=== PATIENT | female | born 1950 | race Caucasian/White ===

== ENCOUNTER 2020-10-04 10:42 | Outpatient (REF) | payer MEDICARE, SELFPAY ==
--- NOTE | ~2020-10-04 | MM_ITS ---
EXAMINATION: BONE DENSITOMETRY CLINICAL INDICATION: Osteopenia. COMPARISON: Baseline BD dated 11/13/2012. TECHNIQUE: Using a [employer] DXA System (software version: 13.1) manufactured by [employer], dual-energy x-ray absorptiometry was performed of the lumbar spine and left hip. The images are of good technical quality. Summary results are attached. FINDINGS: AP SPINE L1-L4: Current: BMD 1.035 g/cm2, Z-score 0.6, T-score -1.2, osteopenia, 5.7% decrease from baseline (<5% change is not significant). Baseline: BMD 1.098 g/cm2. LEFT FEMUR, NECK: Current: BMD 0.718 g/cm2, Z-score -0.5, T-score -2.3, osteopenia. Baseline: BMD 0.806 g/cm2. LEFT FEMUR, TOTAL: Current: BMD 0.748 g/cm2, Z-score -0.5, T-score -2.1, osteopenia, 7.3% decrease from baseline (<5% change is not significant). Baseline: BMD 0.807 g/cm2. IDENTIFIED RISK FACTORS: Early menopause, history of fracture (adult), hysterectomy, bilateral oophorectomy, secondary osteoporosis, tobacco use (current smoker). HISTORY OF FRACTURE: Knee. MEDICATIONS: Vitamin D. MM/XR DEXA axial skeleton IMPRESSION: 1. DIAGNOSIS: Osteopenia based on the lowest T-score value of -2.3 in the femoral neck applying World Health Organization criteria. 2. 10-YEAR FRACTURE RISK PREDICTION, FRAX: Major osteoporotic fracture (clinical spine, forearm, hip or shoulder) 21.2%. Hip fracture 7.7%. 3. Treatment Recommendations: NOF guidelines recommend consideration for treatment in postmenopausal women and men age 50 and older presenting with the following: -A hip or vertebral (clinical or morphometric) fracture. -T-score less than or equal to -2.5 at the femoral neck or spine after appropriate evaluation to exclude secondary causes. -Low bone mass at the hip or spine and a 10-year fracture probability by FRAX of greater than or equal to 3% for hip fracture or greater than or equal to 20% for major osteoporotic fracture based on the [place] adapted WHO algorithm. 4. Other Recommendations: All treatment decisions require clinical judgment and consideration of individual patient factors, including patient preferences, comorbidities, previous drug use, risk factors not captured in the FRAX model (e.g. frailty, falls, vitamin D deficiency, increased bone turnover, interval significant decline in bone density) and possible under or overestimation of fracture risk by FRAX. Additional medical evaluation for secondary cause of low bone mineral density may be appropriate. FUTURE SCAN RECOMMENDATION: People with diagnosed cases of osteoporosis or at high risk for fracture should have regular bone mineral density tests. For patients eligible for Medicare, routine testing is allowed once every 2 years. The testing frequency can be increased to one year for patients who have rapidly progressing disease, those who are receiving or discontinuing medical therapy to restore bone mass, or have additional risk factors.
== END 2020-10-04 10:43 | disposition home or self-care (01) ==
LOC: HO.MAMMO 10:42
PROVIDERS: Visit Provider Nurse Practitioner Family
DX: Z13.820 Encounter for screening for osteoporosis (principal); Z78.0 Asymptomatic menopausal state; M85.80 Other specified disorders of bone density and structure, unspecified site; F17.200 Nicotine dependence, unspecified, uncomplicated; Z79.899 Other long term (current) drug therapy; Z87.81 Personal history of (healed) traumatic fracture; Z90.710 Acquired absence of both cervix and uterus; Z90.722 Acquired absence of ovaries, bilateral
CPT/HCPCS: 77080

== ENCOUNTER 2021-08-06 08:34 | Day surgery (SDC) | payer MEDICARE, SELFPAY ==
[2021-07-31 12:47] VITALS: BMI 20.9
--- NOTE | 2021-08-02 12:52 | MHC.SHP ---
Pre-Procedural Eval Section A Date of Service: 08/02/21 The patient is an INPATIENT: No Changes since office visit: No Cold of Flu in the past 2 weeks, No New Medical Problems, No Changes in Medication and No Patient answered all questions The History & Physical has been completed within 30 days and I have reviewed it.: Yes Section B Chief Complaint: cataract Allergies: Allergies Allergy/AdvReac Type Severity Reaction Status Date / Time Sulfa (Sulfonamide Allergy Severe ANAPHYLAXIS Verified 07/31/21 12:38 Antibiotics) [SULFA (SULFONAMIDE ANTIBIOTICS)] Plan Diagnosis/Plan: Unchanged I have reviewed the history and physical and performed a pertinent physical examination on my patient. No changes have occurred unless specified.
--- NOTE | 2021-08-03 14:26 | HO.ANESPROP2 ---
Documented by User: Arleen Hanson NP 08/03/21 14:27 HPI - Anesthesia Eval Consult details Narrative: 71yo F for Right Cataract Extraction IOL Insertion PCP cleared No previous cataract on record [facility] Past Medical History Medical History Anxiety Arthritis Back pain Cataract COPD (chronic obstructive pulmonary disease) GERD (gastroesophageal reflux disease) HTN (hypertension) Hypothyroidism Personal history of COVID-19 PONV (postoperative nausea and vomiting) Smoker Surgical History Surgical History (Updated 07/31/21 @ 12:46 by Radha Santacruz RN) History of esophagogastroduodenoscopy (EGD) History of lumpectomy of right breast Hx of cerebral aneurysm repair Hx of cholecystectomy Hx of colonoscopy Social History Social History Housing Other:: mobile home Are you a primary patient care technician instructor to a significant other at home: No Do you presently have visiting nurse or other home services: No Patient Tobacco Use Status: Current everyday Tobacco user Tobacco use type: Cigarette Cigarettes Per Day: 10 Years Smoked: 50 Smoked in Last 30 Days: Yes Use of substances other than those prescribed or required for medical reasons: No Have you been hit, kicked, punched, or otherwise hurt by someone within the past year? If so, by whom?: No Are you DNR?: No Advance Directives: No Advance Directives Information Provided: Yes Advance Directives on File: No Recently lost weight without trying: No Meds Allergies Allergy/AdvReac Type Severity Reaction Status Date / Time Sulfa (Sulfonamide Allergy Severe ANAPHYLAXIS Verified 07/31/21 12:38 Antibiotics) [SULFA (SULFONAMIDE ANTIBIOTICS)] Home Medications Medication Instructions Recorded Confirmed Last Taken Type aspirin 81 mg tablet,delayed 81 mg PO DAILY 07/31/21 07/31/21 Unknown History release cyanocobalamin (vitamin B-12) 1 tab PO DAILY 07/31/21 07/31/21 Unknown History 1,000 mcg tablet levothyroxine 50 mcg tablet 50 mcg PO DAILY 07/31/21 07/31/21 08/06/21 History lisinopril 20 mg tablet 1 tab PO DAILY 07/31/21 07/31/21 Unknown History lorazepam 0.5 mg tablet 1 tab PO DAILY PRN 07/31/21 07/31/21 Unknown History omeprazole 20 mg capsule,delayed 1 cap PO DAILY 07/31/21 07/31/21 08/06/21 History release Exam Exam Date and Time: August 03, 2021 1426 Height,Weight and Vital Signs: Height 5 ft 6 in Weight 58.967 kg Assessment and Plan Assessment Anesthesia Assessment: Chart Reviewed Documented by User: Irvin Gonzales MD 08/06/21 10:32 [facility] Past Medical History Medical History Anxiety Arthritis Back pain Cataract COPD (chronic obstructive pulmonary disease) GERD (gastroesophageal reflux disease) HTN (hypertension) Hypothyroidism Personal history of COVID-19 PONV (postoperative nausea and vomiting) Smoker Family History Family history of problems with anesthesia: No Surgical History Surgical History (Updated 07/31/21 @ 12:46 by Radha Santacruz RN) History of esophagogastroduodenoscopy (EGD) History of lumpectomy of right breast Hx of cerebral aneurysm repair Hx of cholecystectomy Hx of colonoscopy History of Problems with Anesthesia: No Social History Social History Housing Other:: mobile home Are you a primary patient care technician instructor to a significant other at home: No Do you presently have visiting nurse or other home services: No Patient Tobacco Use Status: Current everyday Tobacco user Tobacco use type: Cigarette Cigarettes Per Day: 10 Years Smoked: 50 Smoked in Last 30 Days: Yes Use of substances other than those prescribed or required for medical reasons: No Have you been hit, kicked, punched, or otherwise hurt by someone within the past year? If so, by whom?: No Are you DNR?: No Advance Directives: No Advance Directives Information Provided: Yes Advance Directives on File: No Recently lost weight without trying: No Meds Allergies Allergy/AdvReac Type Severity Reaction Status Date / Time Sulfa (Sulfonamide Allergy Severe ANAPHYLAXIS Verified 07/31/21 12:38 Antibiotics) [SULFA (SULFONAMIDE ANTIBIOTICS)] Home Medications Medication Instructions Recorded Confirmed Last Taken Type aspirin 81 mg tablet,delayed 81 mg PO DAILY 07/31/21 07/31/21 Unknown History release cyanocobalamin (vitamin B-12) 1 tab PO DAILY 07/31/21 07/31/21 Unknown History 1,000 mcg tablet levothyroxine 50 mcg tablet 50 mcg PO DAILY 07/31/21 07/31/21 08/06/21 History lisinopril 20 mg tablet 1 tab PO DAILY 07/31/21 07/31/21 Unknown History lorazepam 0.5 mg tablet 1 tab PO DAILY PRN 07/31/21 07/31/21 Unknown History omeprazole 20 mg capsule,delayed 1 cap PO DAILY 07/31/21 07/31/21 08/06/21 History release Exam Airway Mallampati Class: II TM Dist: >3cm Neck ROM: Full Heart: [id number] Lungs: cta b/l Assessment and Plan Assessment Anesthesia Assessment: Anesthesia Plan Discussed Final Anesthetic Review Family History of Problems with Anesthesia: No History of Problems with Anesthesia: No NPO: Yes ASA Class: II Final Preanesthetic Review: No Changes in Pt Med Stat, Meds/Allgs Chart Reviewed, Consent Obtained/Reviewed and Anes Risks/Benef Reviewed Patient Risk: Intermediate Procedure Risk: Low Assessment/Block/Sedation in SS: Assess/Block/Sedation-SS Anesthetic Plan Anesthetic Plan: MAC: and Agree w/ Assess. and Plan Disposition: Standard PACU
[2021-08-06 10:05] VITALS: BP 168/56; PULSE 84; RESP 16; TEMP 36.3; O2SAT 98
[2021-08-06] MEDS: Tetracaine HCl/PF 0.5% Oph Sol 4 ML DROPS 1 DROP EYE-RIGHT (10:10)
[2021-08-06] MEDS: Tropicamide 1 % Ophth Sol 3 ML BTL 1 DROP EYE-RIGHT ×3 (10:11→10:19)
[2021-08-06] MEDS: Phenylephrine HCL 2.5% Oph SoL 2 ML BOTTLE 1 DROP EYE-RIGHT ×3 (10:12→10:23)
[2021-08-06] MEDS: Lactated Ringers 500 ML 50 ML IV (10:23)
--- NOTE | 2021-08-06 11:10 | HO.PNOPHT ---
Ophthalmology Procedure Procedure Date of Service: 08/06/21 Ophthalmology Viscoelastic: Healon Duet Dual Pack Pro Ophthalmology Lenses: TECNIS [id number] (20.5) Procedure Notes: PREOPERATIVE DIAGNOSIS: Decreased visual acuity right eye secondary to cataract POSTOPERATIVE DIAGNOSIS: Same PROCEDURE: Right cataract extraction with intraocular lens insertion SURGEON: Cesar Evangelista M.D. ANESTHESIA: Topical/MAC ESTIMATED BLOOD LOSS: None COMPLICATIONS: None After obtaining informed consent, the patient was brought to the operating room suite and placed in the supine position. After adequate sedation per anesthesia, topical drops of Tetracaine were given to the right eye. The eye was then prepped and draped in the usual sterile fashion. The operating room microscope was then positioned over the operative eye and a lid speculum placed. A paracentesis was created. Viscoelastic was then instilled into the anterior chamber. A three plane incision was then created temporally, utilizing a 2.85 mm keratome. Capsulotomy forceps were then utilized to create a circular tear capsulotomy. Hydrodissection and hydrodelineation were carried out until adequate mobilization of the nucleus occurred. Phacoemulsification was then utilized to remove the dense central nucleus followed by removal of the cortical material utilizing the automated aspiration irrigation unit. Viscoelastic was instilled into the posterior capsular bag followed by placement of a posterior chamber intraocular lens without difficulty. The residual Viscoelastic was then removed utilizing the automated IA machine. The wound was checked and found to be watertight. The patient tolerated the procedure well and the lid speculum was removed. Intracameral injection of Vigamox 0.1 mL followed by a subtenon injection of Kenalog-40 0.2 mL were administered. The patient will be seen in the a.m.
[2021-08-06 11:32] VITALS: BP 149/64; PULSE 62; RESP 16; TEMP 36.2; O2SAT 97
== END 2021-08-06 12:14 | disposition home or self-care (01) ==
PROVIDERS: PCP Nurse Practitioner Family; Visit Provider Ophthalmology
PROC: (CPT 66985; principal; 2021-08-06 11:30)
DX: H25.11 Age-related nuclear cataract, right eye (principal); H54.7 Unspecified visual loss; E03.9 Hypothyroidism, unspecified; I71.9 Aortic aneurysm of unspecified site, without rupture; I10 Essential (primary) hypertension; Z98.890 Other specified postprocedural states; Z90.49 Acquired absence of other specified parts of digestive tract; Z79.82 Long term (current) use of aspirin; Z79.899 Other long term (current) drug therapy; Z88.2 Allergy status to sulfonamides; F17.210 Nicotine dependence, cigarettes, uncomplicated
CPT/HCPCS: 66984; J2250; J3300; V2632

== ENCOUNTER 2021-08-20 08:21 | Day surgery (SDC) | payer MEDICARE, SELFPAY ==
[2021-07-31 12:51] VITALS: BMI 20.9
--- NOTE | 2021-08-17 08:13 | MHC.SHP ---
Pre-Procedural Eval Section A Date of Service: 08/17/21 The patient is an INPATIENT: No Changes since office visit: No Cold of Flu in the past 2 weeks, No New Medical Problems, No Changes in Medication and No Patient answered all questions The History & Physical has been completed within 30 days and I have reviewed it.: Yes Section B Chief Complaint: cataract Allergies: Allergies Allergy/AdvReac Type Severity Reaction Status Date / Time Sulfa (Sulfonamide Allergy Severe ANAPHYLAXIS Verified 07/31/21 12:38 Antibiotics) [SULFA (SULFONAMIDE ANTIBIOTICS)] Plan Diagnosis/Plan: Unchanged I have reviewed the history and physical and performed a pertinent physical examination on my patient. No changes have occurred unless specified.
--- NOTE | 2021-08-17 09:19 | HO.ANESPROP2 ---
Documented by User: Arleen Hanson NP 08/17/21 09:20 HPI - Anesthesia Eval Consult details Narrative: 71yo F for Left Cataract Extraction IOL Insertion PCP cleared Right eye 08/06/21 with MAC: Midaz 2 PMFSH Past Medical History Medical History Anxiety Arthritis Back pain Cataract COPD (chronic obstructive pulmonary disease) GERD (gastroesophageal reflux disease) HTN (hypertension) Hypothyroidism Personal history of COVID-19 PONV (postoperative nausea and vomiting) Smoker Family History Family history of problems with anesthesia: No Surgical History Surgical History History of esophagogastroduodenoscopy (EGD) History of lumpectomy of right breast Hx of cerebral aneurysm repair Hx of cholecystectomy Hx of colonoscopy History of Problems with Anesthesia: No Social History Social History Housing Other:: mobile home Are you a primary hemodialysis patient care specialist to a significant other at home: No Do you presently have visiting nurse or other home services: No Patient Tobacco Use Status: Current everyday Tobacco user Tobacco use type: Cigarette Cigarettes Per Day: 10 Years Smoked: 50 Smoked in Last 30 Days: Yes Use of substances other than those prescribed or required for medical reasons: No Have you been hit, kicked, punched, or otherwise hurt by someone within the past year? If so, by whom?: No Are you DNR?: No Advance Directives: No Advance Directives Information Provided: Yes Advance Directives on File: No Meds Allergies Allergy/AdvReac Type Severity Reaction Status Date / Time Sulfa (Sulfonamide Allergy Severe ANAPHYLAXIS Verified 07/31/21 12:38 Antibiotics) [SULFA (SULFONAMIDE ANTIBIOTICS)] Home Medications Medication Instructions Recorded Confirmed Last Taken Type aspirin 81 mg tablet,delayed 81 mg PO DAILY 07/31/21 07/31/21 Unknown History release cyanocobalamin (vitamin B-12) 1 tab PO DAILY 07/31/21 07/31/21 Unknown History 1,000 mcg tablet levothyroxine 50 mcg tablet 50 mcg PO DAILY 07/31/21 07/31/21 08/06/21 History lisinopril 20 mg tablet 1 tab PO DAILY 07/31/21 07/31/21 Unknown History lorazepam 0.5 mg tablet 1 tab PO DAILY PRN 07/31/21 07/31/21 Unknown History omeprazole 20 mg capsule,delayed 1 cap PO DAILY 07/31/21 07/31/21 08/06/21 History release Exam Exam Date and Time: August 17, [id number] Height,Weight and Vital Signs: Height 5 ft 6 in Weight 58.967 kg Assessment and Plan Assessment Anesthesia Assessment: Chart Reviewed Final Anesthetic Review Family History of Problems with Anesthesia: No History of Problems with Anesthesia: No Documented by User: Anne Caceres MD 08/20/21 09:21 [facility] Past Medical History Medical History Anxiety Arthritis Back pain Cataract COPD (chronic obstructive pulmonary disease) GERD (gastroesophageal reflux disease) HTN (hypertension) Hypothyroidism Personal history of COVID-19 PONV (postoperative nausea and vomiting) Smoker Surgical History Surgical History History of esophagogastroduodenoscopy (EGD) History of lumpectomy of right breast Hx of cerebral aneurysm repair Hx of cholecystectomy Hx of colonoscopy Social History Social History Housing Other:: mobile home Are you a primary hemodialysis patient care specialist to a significant other at home: No Do you presently have visiting nurse or other home services: No Patient Tobacco Use Status: Current everyday Tobacco user Tobacco use type: Cigarette Cigarettes Per Day: 10 Years Smoked: 50 Smoked in Last 30 Days: Yes Use of substances other than those prescribed or required for medical reasons: No Have you been hit, kicked, punched, or otherwise hurt by someone within the past year? If so, by whom?: No Are you DNR?: No Advance Directives: No Advance Directives Information Provided: Yes Advance Directives on File: No Meds Allergies Allergy/AdvReac Type Severity Reaction Status Date / Time Sulfa (Sulfonamide Allergy Severe ANAPHYLAXIS Verified 07/31/21 12:38 Antibiotics) [SULFA (SULFONAMIDE ANTIBIOTICS)] Home Medications Medication Instructions Recorded Confirmed Last Taken Type aspirin 81 mg tablet,delayed 81 mg PO DAILY 07/31/21 07/31/21 Unknown History release cyanocobalamin (vitamin B-12) 1 tab PO DAILY 07/31/21 07/31/21 Unknown History 1,000 mcg tablet levothyroxine 50 mcg tablet 50 mcg PO DAILY 07/31/21 07/31/21 08/06/21 History lisinopril 20 mg tablet 1 tab PO DAILY 07/31/21 07/31/21 Unknown History lorazepam 0.5 mg tablet 1 tab PO DAILY PRN 07/31/21 07/31/21 Unknown History omeprazole 20 mg capsule,delayed 1 cap PO DAILY 07/31/21 07/31/21 08/06/21 History release Exam Airway Mallampati Class: II TM Dist: >3cm Neck ROM: Full Loose/Missing/Broken Teeth: No Heart: RRR Lungs: CTA Assessment and Plan Assessment Anesthesia Assessment: Anesthesia Plan Discussed Final Anesthetic Review NPO: Yes ASA Class: III Final Preanesthetic Review: Meds/Allgs Chart Reviewed, Consent Obtained/Reviewed and Anes Risks/Benef Reviewed Patient Risk: Intermediate Procedure Risk: Low Anesthetic Plan Anesthetic Plan: MAC: Disposition: Standard PACU
[2021-08-20 09:09] VITALS: BP 150/72; PULSE 66; RESP 18; TEMP 36.5; O2SAT 96
[2021-08-20] MEDS: Lactated Ringers 500 ML 50 ML IV (09:11)
[2021-08-20] MEDS: Tetracaine HCl/PF 0.5% Oph Sol 4 ML DROPS 1 DROP EYE-LEFT (09:11)
[2021-08-20] MEDS: Tropicamide 1 % Ophth Sol 3 ML BTL 1 DROP EYE-LEFT ×3 (09:13→09:24)
[2021-08-20] MEDS: Phenylephrine HCL 2.5% Oph SoL 2 ML BOTTLE 1 DROP EYE-LEFT ×3 (09:16→09:28)
--- NOTE | 2021-08-20 10:17 | HO.PNOPHT ---
Ophthalmology Procedure Procedure Date of Service: 08/20/21 Ophthalmology Viscoelastic: Healon Duet Dual Pack Pro Ophthalmology Lenses: TECNIS [id number] (20.5) Procedure Notes: PREOPERATIVE DIAGNOSIS: Decreased visual acuity left eye secondary to cataract POSTOPERATIVE DIAGNOSIS: Same PROCEDURE: Left cataract extraction with intraocular lens insertion SURGEON: Cesar Evangelista M.D. ANESTHESIA: Topical/MAC ESTIMATED BLOOD LOSS: None COMPLICATIONS: None After obtaining informed consent, the patient was brought to the operation room suite and placed in the supine position. After adequate sedation per anesthesia, topical drops of Tetracaine were given to the left eye. The eye was then prepped and draped in the usual sterile fashion. The operating room microscope was then positioned over the operative eye and a lid speculum placed. A paracentesis was created. Viscoelastic was then instilled into the anterior chamber. A three plane incision was then created temporally, utilizing a 2.85 mm keratome. Capsulotomy forceps were then utilized to create a circular tear capsulotomy. Hydrodissection and hydrodelineation were carried out until adequate mobilization of the nucleus occurred. Phacoemulsification was then utilized to remove the dense central nucleus followed by removal of the cortical material utilizing the automated aspiration irrigation unit. Viscoat elastic was instilled into the posterior capsular bag followed by placement of a posterior chamber intraocular lens without difficulty. The residual Viscoat elastic was then removed utilizing the automated IA machine. The wound was check and found to be watertight. The patient tolerated the procedure well and the lid speculum was removed. Intracameral injection of Vigamox 0.1 mL followed by a subtenon injection of Kenalog-40 0.2 mL were administered. The patient will be seen in the a.m.
[2021-08-20 10:39] VITALS: BP 132/65; PULSE 66; RESP 16; TEMP 36.6; O2SAT 94
== END 2021-08-20 10:57 | disposition home or self-care (01) ==
PROVIDERS: PCP Nurse Practitioner Family; Visit Provider Ophthalmology
PROC: (CPT 66985; principal; 2021-08-20 10:20)
DX: H25.12 Age-related nuclear cataract, left eye (principal); H54.7 Unspecified visual loss; E03.9 Hypothyroidism, unspecified; I71.9 Aortic aneurysm of unspecified site, without rupture; I10 Essential (primary) hypertension; J44.9 Chronic obstructive pulmonary disease, unspecified; Z79.899 Other long term (current) drug therapy; F17.210 Nicotine dependence, cigarettes, uncomplicated; Z86.16 Personal history of COVID-19
CPT/HCPCS: 66984; J2250; J3010; J3300; V2632

== ENCOUNTER 2022-06-24 14:46 | Outpatient (REF) | payer MEDICARE, SELFPAY ==
--- NOTE | ~2022-06-24 | MM_ITS ---
EXAMINATION: MM DIAGNOSTIC DIGITAL BREAST TOMOSYNTHESIS, BILATERAL CLINICAL INFORMATION: Remote right lumpectomy for breast cancer. Due for yearly. Follow-up probable benign complicated cysts left breast. COMPARISON: Outside mammography 06/19/2020, 06/18/2019 ([facility]), mammography 05/14/2013 and 11/13/2012 ([facility] [place]); outside ultrasound left breast 06/21/2021, 06/29/2020, 12/20/2019 ([facility]) TECHNIQUE: Digital breast tomosynthesis is performed in both the craniocaudal and mediolateral oblique views along with computer-aided detection (CAD). Synthesized 2D images are generated from the tomosynthesis. The prior outside studies were not available at time of imaging. FINDINGS: There are scattered areas of fibroglandular density (ACR BI-RADS breast composition Category b). There are post therapy changes on the right with reduced breast size, stable scarring, and benign dystrophic calcification within the scar. The left breast has inhomogeneous parenchymal pattern with some minor waxing and waning nodularity. There is no developing density or interval architectural abnormality or abnormal calcifications. The bilateral axilla are unremarkable. Preliminary results were discussed with patient at time of imaging. The final surveillance ultrasound of the left breast is pending, to be described in a separate report. MM/MM tomosynthesis diagnostic BI IMPRESSION: -No significant changes from prior studies. -Post therapy changes right breast. ASSESSMENT: BI-RADS 0: Incomplete - Need Additional Imaging Evaluation RECOMMENDATION: Left breast ultrasound (follow-up outside exam). This patient's information was entered into a reminder system with a target due date for their next mammogram.
== END 2022-06-24 14:47 | disposition home or self-care (01) ==
LOC: HO.MAMMO 14:46
PROVIDERS: PCP Nurse Practitioner Family; Visit Provider Nurse Practitioner Family
DX: R92.8 Other abnormal and inconclusive findings on diagnostic imaging of breast (principal); N60.02 Solitary cyst of left breast
CPT/HCPCS: 77062; 77066

== ENCOUNTER 2022-06-28 13:04 | Outpatient (REF) | payer MEDICARE, SELFPAY ==
--- NOTE | ~2022-06-28 | US_ITS ---
EXAMINATION: US DIAGNOSTIC BREAST, LEFT CLINICAL INFORMATION: One-year follow-up for cystic areas. COMPARISON: Mammography of 06/24/2022 and studies dating back to 05/14/2013. TECHNIQUE: Ultrasound of the breast is performed with real-time parker scale imaging and color Doppler. FINDINGS: At the 12 o'clock position approximately 2 cm from the nipple, there is a hypoechoic 3 x 3 x 3 mm circumscribed density with some increased through-sound transmission with appearance of a small benign cyst. This is stable compared to studies dating back to 06/18/2019. At the 3 o'clock position 3 cm from the nipple, there is again noted to be a heterogeneous and hypoechoic partially cystic lesion measuring approximately 9 x 4 x 11 mm in size. Lesion is wider than it is tall without internal vascularity. There is increased distal sound enhancement. Previously this measured approximately 10 x 5 x 8 mm in size. At the 3 o'clock location approximately 6 m from the nipple, there is a hypoechoic 10 x 4 x 12 mm lesion which is wider than it is tall without internal vascularity. Previously this measured approximately 9 x 4 x 10 mm in size. No edematous change within the parenchyma is identified. Results are discussed with the patient at time of visit. US/US breast LT limited IMPRESSION: Stable left breast densities as described. Return to yearly screening examinations. ASSESSMENT: BI-RADS 2: Benign RECOMMENDATION: Routine annual mammography screening due in 12 months. This patient's information was entered into a reminder system with a target due date for their next mammogram.
== END 2022-06-28 13:05 | disposition home or self-care (01) ==
LOC: HO.MAMMO 13:04
PROVIDERS: PCP Nurse Practitioner Family; Visit Provider Nurse Practitioner Family
DX: N60.02 Solitary cyst of left breast (principal)
CPT/HCPCS: 76642

== ENCOUNTER 2023-06-27 11:36 | Outpatient (REF) | payer MEDICARE, SELFPAY ==
--- NOTE | ~2023-06-27 | MM_ITS ---
EXAMINATION: MM SCREENING DIGITAL BREAST TOMOSYNTHESIS, BILATERAL CLINICAL INFORMATION: Screening. Asymptomatic. Right breast cancer in 2000. COMPARISON: Mammography: This study is compared with prior exams dating back to 2013. TECHNIQUE: Digital breast tomosynthesis is performed in both the craniocaudal and mediolateral oblique views along with computer-aided detection (CAD). Synthesized 2D images are generated from the tomosynthesis. FINDINGS: There are scattered areas of fibroglandular density (ACR BI-RADS breast composition Category b). There is an oval focal asymmetry in the upper outer quadrant of the left breast. Additional mammographic imaging with spot compression and sonography is advised. This finding is associated with faint calcifications. Separate mammographic magnification imaging is advised to evaluate the calcifications. There is a possibility these calcifications could be vascular. The diagnostic 90 degree view with 2-D and tomosynthesis will also be helpful in evaluating these calcifications. In the right breast, there are no significant masses, abnormal calcifications, or other abnormalities. There is a coarse benign calcification in the upper outer quadrant of the right breast and evidence of prior surgery in the right breast. There is also some mild skin thickening of the right breast which is chronic and related to prior breast cancer treatment. MM/MM tomosynthesis screening BI IMPRESSION: Focal asymmetry of the upper outer quadrant of the left breast in associated calcifications warrant additional mammographic and targeted sonographic imaging. Postsurgical and posttreatment changes of the right breast. ASSESSMENT: BI-RADS BI-RADS 0 - Incomplete: Needs additional Imaging. RECOMMENDATION: 1. Additional views of the left breast 2. Targeted ultrasound 3. Radiology department staff will contact the patient for additional imaging. Additional Imaging required This examination should not preclude the clinical evaluation of a suspicious palpable abnormality. This patient's information was entered into a reminder system with a target due date for their next mammogram.
== END 2023-06-27 11:37 | disposition home or self-care (01) ==
LOC: HO.MAMMO 11:36
PROVIDERS: PCP Nurse Practitioner Family; Visit Provider Nurse Practitioner Family
DX: Z12.31 Encounter for screening mammogram for malignant neoplasm of breast (principal)
CPT/HCPCS: 77063; 77067

== ENCOUNTER → 2023-06-27 12:15 | Outpatient (BNV) | payer MEDICARE, SELFPAY | PROVIDERS: PCP Nurse Practitioner Family; Visit Provider Radiology Diagnostic Radiology | DX: Z12.31 Encounter for screening mammogram for malignant neoplasm of breast (principal) | CPT/HCPCS: 77063; 77067 ==

== ENCOUNTER 2023-07-02 08:27 | Outpatient (REF) | payer MEDICARE, MEDICAID, SELFPAY ==
--- NOTE | ~2023-07-02 | MM_ITS ---
EXAMINATION: MM DIAGNOSTIC DIGITAL BREAST TOMOSYNTHESIS, LEFT US BREAST LIMITED, LEFT MAMMOGRAPHY: CLINICAL INFORMATION: Diagnostic imaging for follow-up of a 1 view focal asymmetry seen posterior left breast MLO view superiorly, with a few associated small calcifications. Findings seen on screening exam 05/27/2023. COMPARISON: Outside mammography 06/19/2020, 06/18/2019 ([facility]); Mammography to 06/27/2023, 06/24/2022, 05/14/2013 and 11/13/[place] [place]/2022 [place] [place] Outside ultrasound left breast 05/28/2022, 06/21/2021, 06/29/2020, 12/20/2019 ([facility]) TECHNIQUE: Digital breast tomosynthesis is performed in the following views: Full-field digital 3-D left mediolateral view, 3-D left spot compression CC and MLO views, and 2-D spot magnification left CC and ML views. FINDINGS: There are scattered areas of fibroglandular density (ACR BI-RADS breast composition Category b). Spot magnification views of the calcifications associated with the small oval mass in the upper outer left breast posterior one third demonstrate 2-3 punctate calcifications without pleomorphism. There are rounded in shape, and do not meet criteria for biopsy. In hindsight, these were likely present 06/24/2022 and appear similar. These are benign. Spot compression views demonstrate a persistent oval mass at the 3:00 axis of the left breast, with an abutting slightly more anterior oval oval mass 3:00 axis which both appear circumscribed and slightly smaller than on prior exams. We will evaluate these with ultrasound. ULTRASOUND: CLINICAL INFORMATION: As above. COMPARISON: As above. TECHNIQUE: Targeted sonographic evaluation was performed left breast using a high frequency linear transducer. Attention was focused on the 3:00 axis, 6 and 7 cm from the nipple. Selected archived documentation. FINDINGS: LEFT BREAST: -In the left breast 3:00 axis, 7 cm from the nipple, there is a slightly smaller complicated cyst measuring 0.9 x 0.7 x 0.4 cm (previously measured at 0.9 x 0.8 x 0.5 cm on 07/01/2022). This was previously surveilled for 3 years at [facility] the ultrasound and is slightly smaller and otherwise stable and benign. On 06/18/2019, this measured 0.9 x 0.5 x 0.8 cm. This represents the focal asymmetry seen on most recent mammography. -In the 3:00 axis, 6 cm from the nipple, there is a much smaller complicated cyst currently measuring 0.6 x 0.2 x 0.6 cm, (previously 0.6 x 0.5 x 0.4 cm on 06/18/2019). This is also benign entity, being slightly smaller than several years prior. MM/MM tomosynthesis added views L IMPRESSION: Benign findings, unchanged from prior exams, related to 2 complicated cysts in the left breast at the 3:00 axis, both smaller than on 06/18/2019. No suspicious calcifications identified in relation to these findings. No findings suspicious for malignancy in the left breast. Recommend patient resume routine annual screening to include both breasts. OVERALL ASSESSMENT: Mammography: BI-RADS 2 - Benign Findings Ultrasound: BI-RADS 2 - Benign Findings RECOMMENDATION: 1 year F/U Results were discussed with the patient at time of visit. This patient's information was entered into a reminder system with a target due date for their next mammogram.
--- NOTE | ~2023-07-02 | US_ITS ---
EXAMINATION: MM DIAGNOSTIC DIGITAL BREAST TOMOSYNTHESIS, LEFT US BREAST LIMITED, LEFT MAMMOGRAPHY: CLINICAL INFORMATION: Diagnostic imaging for follow-up of a 1 view focal asymmetry seen posterior left breast MLO view superiorly, with a few associated small calcifications. Findings seen on screening exam 05/27/2023. COMPARISON: Outside mammography 06/19/2020, 06/18/2019 ([facility]); Mammography to 06/27/2023, 06/24/2022, 05/14/2013 and 11/13/2012 ([facility] [place] Left breast ultrasound 07/01/2022 ([facility] [place]); Outside ultrasound left breast 05/28/2022, 06/21/2021, 06/29/2020, 12/20/2019 ([facility]) TECHNIQUE: Digital breast tomosynthesis is performed in the following views: Full-field digital 3-D left mediolateral view, 3-D left spot compression CC and MLO views, and 2-D spot magnification left CC and ML views. FINDINGS: There are scattered areas of fibroglandular density (ACR BI-RADS breast composition Category b). Spot magnification views of the calcifications associated with the small oval mass in the upper outer left breast posterior one third demonstrate 2-3 punctate calcifications without pleomorphism. There are rounded in shape, and do not meet criteria for biopsy. In hindsight, these were likely present 06/24/2022 and appear similar. These are benign. Spot compression views demonstrate a persistent oval mass at the 3:00 axis of the left breast, with an abutting slightly more anterior oval oval mass 3:00 axis which both appear circumscribed and slightly smaller than on prior exams. We will evaluate these with ultrasound. ULTRASOUND: CLINICAL INFORMATION: As above. COMPARISON: As above. TECHNIQUE: Targeted sonographic evaluation was performed left breast using a high frequency linear transducer. Attention was focused on the 3:00 axis, 6 and 7 cm from the nipple. Selected archived documentation. FINDINGS: LEFT BREAST: -In the left breast 3:00 axis, 7 cm from the nipple, there is a slightly smaller complicated cyst measuring 0.9 x 0.7 x 0.4 cm (previously measured at 0.9 x 0.8 x 0.5 cm on 07/01/2022). This was previously surveilled for 3 years at [facility] the ultrasound and is slightly smaller and otherwise stable and benign. On 06/18/2019, this measured 0.9 x 0.5 x 0.8 cm. This represents the focal asymmetry seen on most recent mammography. -In the 3:00 axis, 6 cm from the nipple, there is a much smaller complicated cyst currently measuring 0.6 x 0.2 x 0.6 cm, (previously 0.6 x 0.5 x 0.4 cm on 06/18/2019). This is also benign entity, being slightly smaller than several years prior. US/US breast LT limited mamm only IMPRESSION: Benign findings, unchanged from prior exams, related to 2 complicated cysts in the left breast at the 3:00 axis, both smaller than on 06/18/2019. No suspicious calcifications identified in relation to these findings. No findings suspicious for malignancy in the left breast. Recommend patient resume routine annual screening to include both breasts. OVERALL ASSESSMENT: Mammography: BI-RADS 2 - Benign Findings Ultrasound: BI-RADS 2 - Benign Findings RECOMMENDATION: 1 year F/U Results were discussed with the patient at time of visit. This patient's information was entered into a reminder system with a target due date for their next mammogram.
== END 2023-07-02 08:28 | disposition home or self-care (01) ==
LOC: HO.MAMMO 08:27
PROVIDERS: PCP Nurse Practitioner Family; Visit Provider Nurse Practitioner Family
DX: N64.89 Other specified disorders of breast (principal)
CPT/HCPCS: 76642; 77061; 77065

== ENCOUNTER → 2023-07-02 09:00 | Outpatient (BNV) | payer MEDICARE, SELFPAY | PROVIDERS: PCP Nurse Practitioner Family; Visit Provider Radiology Diagnostic Radiology | DX: R92.8 Other abnormal and inconclusive findings on diagnostic imaging of breast (principal) | CPT/HCPCS: 76642; 77065; G0279 ==

== ENCOUNTER 2023-08-21 09:30 | Outpatient (REF) | payer MEDICARE, MEDICAID, SELFPAY ==
--- NOTE | ~2023-08-21 | CT_ITS ---
EXAMINATION: CT ANGIOGRAM OF THE CHEST WITHOUT AND WITH CONTRAST CLINICAL INFORMATION: Thoracic aortic aneurysm COMPARISON: Noncontrast CT chest from 09/28/2014 TECHNIQUE: Multidetector volumetric CT imaging of the chest was performed before and after the administration of 70 mL of Omnipaque 350 intravenous contrast without immediate adverse reactions. 3D POSTPROCESSING: Multiple 3-D angiographic images were processed from the initial data set by the [facility] under concurrent physician supervision. DOSE LOWERING TECHNIQUES: This CT examination was performed using dose optimization techniques as appropriate, variously including the following: - Automated exposure control - Adjustment of mA and/or kV according to patient size (this includes techniques or standardized protocols for targeted exams where dose is matched to indication/reason for exam; i.e. extremities or head) - Use of iterative reconstruction technique DLP: 102 mGy-cm. FINDINGS: VASCULAR: ASCENDING AORTA: The mid segment measures 3.9 x 3.8 cm. Widely patent. No significant atherosclerotic plaque. AORTIC ARCH: Normal caliber and widely patent. Three-vessel arch anatomy. The great vessels are patent. Minimal atherosclerotic wall calcifications DESCENDING AORTA: The mid segment measures 3.4 x 3.4 cm. Minimal scattered atherosclerotic wall calcifications ABDOMINAL AORTA: Visualized proximal abdominal aorta is normal in caliber. NONVASCULAR: LUNGS: The lungs are clear with no evidence of inflammation or nodules. MEDIASTINUM: Heart is normal in size. Pericardium is normal. CORONARY ARTERY CALCIFICATION: Present PLEURA: There is no pleural effusion. No pleural mass or thickening. ABDOMINAL VISCERA: Unremarkable OSSEOUS STRUCTURES: Sternotomy wires and surgical screws are intact CT/CT angio chest aorta IMPRESSION: No evidence of thoracic aortic aneurysm. Minimal atherosclerotic disease.
[2023-08-21] MEDS: iohexoL 350 MG/ML 100 ML INFUS..BTL IV (11:54)
[2023-08-22 09:54] LABS: Creatinine POC 0.8 mg/dL (0.5-1.4); GFR POC > 60
== END 2023-08-21 09:31 | disposition home or self-care (01) ==
LOC: HO.CT 09:30
PROVIDERS: PCP Nurse Practitioner Family; Visit Provider Thoracic Surgery (Cardiothoracic Vascular Surgery)
DX: I71.33 Infrarenal abdominal aortic aneurysm, ruptured (principal)
CPT/HCPCS: 71275; 82565; Q9967

== ENCOUNTER 2023-09-23 10:11 | Outpatient (AMB) | payer MEDICARE, MEDICAID, SELFPAY ==
--- NOTE | 2023-09-23 10:14 | A.OFFVIS_ITS ---
Vital Signs 09/23/23 10:15 Height 5 ft 6 in Weight 116 lb BMI 18.7 BP 122/82 Blood Pressure Location Rt brachial Position Sitting Pulse 80 Pulse Source Doppler Pulse Oximetry (%) 99 Oxygen Delivery Method Room Air Intake Visit Reasons: COPD Allergies Sulfa (Sulfonamide Antibiotics) [SULFA (SULFONAMIDE ANTIBIOTICS)] Allergy (Severe, Verified 09/23/23 10:20) ANAPHYLAXIS HPI HPI COPD: Details: 73-year-old lady, active 25+ pack-year smoker referred for evaluation for underlying COPD. Patient states that she has been using albuterol MDI intermittently with good control of his symptoms she does not require to use long-acting bronchodilators. She denies any dyspnea on exertion. Patient does not have recent pulmonary function testing. Patient did have recent CT angio chest that did not demonstrate any worrisome pulmonary nodules. She denies any recent exacerbations. [facility] Medical History (Updated 09/23/23 @ 10:45 by Timi Santamaria MD) COPD (chronic obstructive pulmonary disease) Anxiety Personal history of COVID-19 Cataract Smoker Back pain Arthritis Hypothyroidism HTN (hypertension) GERD (gastroesophageal reflux disease) PONV (postoperative nausea and vomiting) Surgical History Hx of cerebral aneurysm repair History of lumpectomy of right breast History of esophagogastroduodenoscopy (EGD) Hx of colonoscopy Hx of cholecystectomy Social History (Updated 09/23/23 @ 10:22 by Jerri Mayo Brittany) Housing Other:: mobile home Are you a primary dialysis patient care technician to a significant other at home: No Do you presently have visiting nurse or other home services: No Patient Tobacco Use Status: Current everyday Tobacco user Tobacco use type: Cigarette Cigarettes Per Day: 10 Years Smoked: 50+, started at 10 years old Review of Systems Const Denies daytime sleepiness, Denies excessive sweating, Denies fatigue, Denies fever(s), Denies lethargy, Denies malaise, Denies night sweats, Denies snoring and Denies weight loss Eyes Denies blurry vision and Denies itchy eyes ENT Denies nasal congestion, Denies post nasal drip, Denies sinus pain, Denies sinus pressure and Denies other ( Thrush) Card Denies chest pain, Denies pedal edema, Denies dyspnea, Denies orthopnea and Denies paroxysmal nocturnal dyspnea Resp Denies cough, Denies hemoptysis, Denies excessive phlegm production, Denies dyspnea, Denies snoring and Denies wheezing GI Denies abdominal pain and Denies heartburn Musc Denies myalgias, Denies arthralgias and Denies joint swelling Skin/Breast Denies rash Neuro Denies memory loss and Denies seizure-like activity Psych Denies abnormal sleep pattern, Denies anxiety and Denies memory loss Endo Denies excessive sweating, Denies fatigue and Denies heat intolerance Jeanmarie/Lymph Denies easy bruising Aller/Immun Denies itchy eyes, Denies seasonal rhinorrhea and Denies wheezing Physical Exam Vital Signs: Last Vital Signs Pulse 80 09/23/23 10:15 BP 122/82 09/23/23 10:15 Pulse Ox 99 09/23/23 10:15 Oxygen Delivery Method Room Air 09/23/23 10:15 BMI result Body Mass Index 18.7 Const General: no acute distress and alert Nutritional Appearance: not obese Orientation/consciousness: Other orientation findings ( oriented) HEENT Head: Yes atraumatic Eyes General: appearance normal, both eyes and all related structures Sclerae: sclerae normal EOM: EOMs intact bilaterally Neck Neck: Yes supple Lymphatic: no lymphadenopathy noted Resp Effort & Inspection: normal respiratory effort and no use of accessory muscles Auscultation: clear to auscultation bilaterally Cardio Rate: regular rate Rhythm: regular rhythm Heart sounds: no gallops, no murmurs and no rubs Skin General skin exam: other ( warm) Extrem General: No clubbing, No cyanosis and No edema Assessment & Plan Assessment & Plan (1) Personal history of nicotine dependence: Code(s): Z87.891 - Personal history of nicotine dependence Category: Medical Plan: Results of CT angio chest from July of 2023 reviewed, no worrisome nodules at this time. Will continue with yearly screening, next in July of 2024. (2) COPD (chronic obstructive pulmonary disease): Code(s): J44.9 - Chronic obstructive pulmonary disease, unspecified Category: Medical Plan: Likely underlying COPD of unclear severity well controlled on as needed albuterol MDI. Continue albuterol MDI. Will obtain full PFT. Orders: Orders PFT pulmonary function test Today Coding Level of Care Code New Pt Level 4 (27342) Diagnoses Personal history of nicotine dependence Z87.891 COPD (chronic obstructive pulmonary disease) J44.9
[2023-09-23 10:15] VITALS: BP 122/82; PULSE 80; O2SAT 99; BMI 18.7
== END 2023-09-23 11:08 | disposition home or self-care (01) ==
PROVIDERS: PCP Nurse Practitioner Family; Referring Provider Nurse Practitioner Family; Visit Provider Internal Medicine Pulmonary Disease
DX: Z87.891 Personal history of nicotine dependence (principal); J44.9 Chronic obstructive pulmonary disease, unspecified
CPT/HCPCS: 99204

== ENCOUNTER → 2023-09-23 10:11 | Outpatient (BNVA) | payer MEDICARE, SELFPAY | PROVIDERS: PCP Nurse Practitioner Family; Referring Provider Nurse Practitioner Family; Visit Provider Internal Medicine Pulmonary Disease | DX: J44.9 Chronic obstructive pulmonary disease, unspecified (principal); Z87.891 Personal history of nicotine dependence | CPT/HCPCS: 99202 ==

== ENCOUNTER 2023-10-31 16:26 | Emergency (ER) | payer MEDICARE, MEDICAID, SELFPAY ==
--- NOTE | 2023-10-31 | ECG_ITS ---
Test Reason : CHEST PAINS Blood Pressure : / mmHG Vent. Rate : 060 BPM Atrial Rate : 060 BPM P-R Int : 158 ms QRS Dur : 078 ms QT Int : 432 ms P-R-T Axes : 069 -17 053 degrees QTc Int : 432 ms Normal sinus rhythm Cannot exclude old anterior infarct but can be from lead placement and body habitus Otherwise normal EKG When compared with ECG of 12-FEB-2019 20:18, Premature ventricular complexes are no longer Present Referred By: Generic ED Physician Electronically Signed By:KEARA WISDOM
--- NOTE | ~2023-10-31 | XR_ITS ---
EXAMINATION: XR THORACOLUMBAR SPINE CLINICAL INFORMATION: Pain between scapula. COMPARISON: CTA chest 08/21/2023. TECHNIQUE: 2 views of the thoracic spine. FINDINGS: No evidence of acute compression deformity or subluxation. Hcpg-al-ovbobeyi multilevel thoracic spondylosis. No significant paraspinal soft tissue abnormality. Midline sternal wires and plates are seen. XR/XR thoracic spine 2V IMPRESSION: 1. No acute compression deformity or subluxation. 2. Osuz-ui-elijkpew multilevel thoracic spondylosis.
--- NOTE | ~2023-10-31 | XR_ITS ---
EXAMINATION: XR RIBS, LEFT CLINICAL INFORMATION: Chart pain posterior ribs. COMPARISON: CTA chest 08/21/2023. TECHNIQUE: 3 views of the left ribs were obtained. FINDINGS: Normal heart size. Midline sternal wires and plates are noted. No focal consolidation, pleural effusion or pneumothorax. Subtle platelike opacities in the lingula suggesting subsegmental atelectasis and/or scarring. No evidence of displaced rib fractures. Surgical clips are noted projecting over the right axillary region. XR/XR ribs LT min 3V w CXR1V IMPRESSION: 1. No acute cardiopulmonary findings. 2. No evidence of displaced rib fractures.
[2023-10-31 16:38] VITALS: BP 154/65; PULSE 66; RESP 20; TEMP 37.1; O2SAT 94
[2023-10-31 16:39] VITALS: BP 159/68; PULSE 81; O2SAT 97
--- NOTE | 2023-10-31 17:23 | ED.GENADULT ---
HPI - General Adult General Chief complaint: General Medical Stated complaint: Back pain radiating to chest, fentanyl given Time Seen by Provider: 10/31/23 17:47 Source: patient and family (daughter) Mode of arrival: ambulatory Limitations: no limitations History of Present Illness ED Provider: PRADEEP MILES PA-C HPI narrative: 73-year-old female with past medical history significant for COPD presents to the emergency department today for evaluation of upper back pain that began acutely this morning. Patient reports attempting to tie her shirt behind her back when she felt a sudden twinge between her shoulder blades. Since this time endorses intermittent pain between her shoulder blades, more so on the left that is now radiating through to her chest. The pain is sharp in character and lasts for seconds. Admits the pain takes her breath away however she denies shortness of breath or difficulty breathing. She reports taking naproxen early this morning with minimal relief. Denies fever, chills, palpitations, shortness of breath, dyspnea, wheezing, nausea or vomiting, calf pain/tenderness. Denies trauma or injury to the back or chest. Denies recent travel or long car rides. Denies sedentary lifestyle. Related Data Home Medications ?Medication ?Instructions ?Recorded ?Confirmed aspirin 81 mg tablet,delayed 81 mg PO DAILY 07/31/21 07/31/21 release cyanocobalamin (vitamin B-12) 1 tab PO DAILY 07/31/21 07/31/21 1,000 mcg tablet levothyroxine 50 mcg tablet 50 mcg PO DAILY 07/31/21 07/31/21 lisinopril 20 mg tablet 1 tab PO DAILY 07/31/21 07/31/21 lorazepam 0.5 mg tablet 1 tab PO DAILY PRN anxiety 07/31/21 07/31/21 omeprazole 20 mg capsule,delayed 1 cap PO DAILY 07/31/21 07/31/21 release Previous Rx's ?Medication ?Instructions ?Recorded magnesium oxide 400 mg PO DAILY #7 caps 10/31/23 Allergies Allergy/AdvReac Type Severity Reaction Status Date / Time Sulfa (Sulfonamide Allergy Severe ANAPHYLAXIS Verified 10/31/23 16:41 Antibiotics) [SULFA (SULFONAMIDE ANTIBIOTICS)] Review of Systems Review of Systems: Constitutional: No fever, chills, fatigue, night sweats, weight changes ENT/Mouth: No ear pain, hearing loss, nasal congestion, sinus pain, rhinorrhea, sore throat Eyes: No eye pain, swelling, redness, vision changes, discharge Cardio: No chest pain, palpitations, BYERS, orthopnea, peripheral edema Pulm: No SOB, cough, sputum, wheezing, dyspnea, hemoptysis GI: No nausea, vomiting, hematemesis, abdominal pain, diarrhea, constipation, hematochezia, melena : No irregular bleeding, dysuria, frequency, urgency, hesitancy, hematuria, flank pain, urinary flow changes, urinary incontinence or retention MSK: No back pain, neck pain, joint pain, myalgias, +back pain Skin: No lesions, rashes Neuro: No weakness, numbness, paresthesias, LOC, dizziness, headache Psych: No anxiety/panic, depression, SI/HI, AH/VH All other systems reviewed and are negative. [facility] Past Medical History Attestation statement: The following information was validated with the patient. Source: old records reviewed and nursing notes reviewed Medical History COPD (chronic obstructive pulmonary disease) Anxiety Personal history of COVID-19 Cataract Smoker Back pain Arthritis Hypothyroidism HTN (hypertension) GERD (gastroesophageal reflux disease) PONV (postoperative nausea and vomiting) Surgical History Hx of cerebral aneurysm repair History of lumpectomy of right breast History of esophagogastroduodenoscopy (EGD) Hx of colonoscopy Hx of cholecystectomy Social History Social History Housing Other:: mobile home Are you a primary child care counselor to a significant other at home: No Do you presently have visiting nurse or other home services: No Patient Tobacco Use Status: Current everyday Tobacco user Tobacco use type: Cigarette Cigarettes Per Day: 10 Years Smoked: 50+, started at 10 years old Advance Directives: No Advance Directives Information Provided: Yes Do you have a plan to hurt others: No Plan Physical Exam ED Vital Signs: Vital Signs - 24 hr 10/31/23 21:04 Temperature 98.6 F Pulse Rate 54 Respiratory Rate 20 Blood Pressure 143/56 H Pulse Oximetry 95 Oxygen Delivery Method Room Air BMI result Body Mass Index 20.0 Patient is slightly hypertensive, vitals otherwise WNL. Not hypoxic. Const Other: Patient lying comfortably on the exam bed General: cooperative, healthy appearing, comfortable and no acute distress Orientation/consciousness: patient oriented x3 Limitations: no limitations HENIA Head: Yes normal to inspection, Yes No palpable skull fracture present, Yes normocephalic and Yes atraumatic Eyes General: appearance normal, both eyes and all related structures Conjunctivae: conjunctivae normal Sclerae: sclerae normal Pupils: Equal, round and reactive pupils present Chest Other: Vertical healed scar noted to substernal region of chest status post aortic aneurysm repair. Reproducible tenderness to posterior chest wall between the scapula, tender to palpation without palpable deformity. No palpable masses, fluctuance or crepitus. Resp Effort & Inspection: normal respiratory effort and able to speak in complete sentences Auscultation: clear to auscultation bilaterally, no crackles, no rhonchi and no wheezes Cardio Other: No JVD or peripheral edema Rate: regular rate Rhythm: regular rhythm GI Inspection: Yes normal to inspection Palpation (GI): Soft to palpation and nontender Back/Spine/Pelvis Other: No midline spinous tenderness or step-off deformity. Skin General skin exam: no rashes or lesions noted Neuro General: patient oriented x3 Cranial nerves: Yes Equal, round and reactive pupils present Course Course Course Narrative: 1815-- CBC without leukocytosis or left shift. Slightly anemic with H&H 11./33. She denies any bleeding. I did received critical lab result of magnesium of 1. Discussed this with patient. She does report history of low magnesium levels requiring supplementation at home however ran out of this supplement a few weeks ago and just started taking it again yesterday. Will replete with IV magnesium sulfate. I have suspicion that this may be contributing to spasming between shoulder blades. 1899-- XR ribs/ cxr unremarkable. XR thoracic spine unremarkable. Patient's symptoms likely secondary to hypomag as she reports symptom improvement on re-evaluation. I discussed all work up results with patient and her daughter. She is stable at the end of my shift. Sign out given to my colleague Chris BALES, pending repeat mag levels. Reevaluation(s) Reevaluation #1: Repeat magnesium 1.6, sent prescription for magnesium oxide to pharmacy, advised outpatient follow-up primary care provider for re-evaluation. Medications Administered Discontinued Medications Generic Name Dose Route Start Last Admin Trade Name Gayle PRN Reason Stop Dose Admin Baclofen 10 mg 10/31/23 17:31 10/31/23 18:18 Baclofen 10 Mg Tablet PO 10/31/23 17:32 10 mg ONCE ONE Administration Magnesium Sulfate 2 gm in 50 mls @ 25 mls/hr 10/31/23 18:16 10/31/23 20:35 Magnesium Sulfate/H2o IV 10/31/23 20:15 Infused ONCE ONE Infusion Lidocaine 1 patch 10/31/23 17:31 10/31/23 18:18 Lidocaine 4 % Patch Adh..Patch TRANSDERMA 10/31/23 17:32 1 patch ONCE ONE Administration Protocol Medical Decision Making Medical Decision Making MDM Narrative: 73-year-old female with past medical history significant for COPD presents to the emergency department today for evaluation of upper back pain that began acutely this morning. Patient is slightly hypertensive to 154/65, vitals otherwise WNL. She has not hypoxic. She is well-appearing, lying comfortably on the exam bed. No signs of respiratory distress. On exam, there is a vertical healed scar noted to substernal region of chest status post aortic aneurysm repair. Reproducible tenderness to posterior chest wall between the scapula, tender to palpation without palpable deformity. No palpable masses, fluctuance or crepitus. Symmetric rise and fall of chest. Differential diagnosis includes muscle spasm, muscle strain, ACS, arrhythmia. Lower suspicion for fracture, subluxation, herniation. Unlikely pulmonary embolism, AAA, aortic rupture, flail chest, rib fracture, cauda equina, Guillain-Hamilton, epidural abscess, cord compression. Plan for labs, ekg, trop, cxr/rib xr, and thoracic xr. Differential Diagnosis Differential Diagnoses: The differential diagnosis associated with the presentation includes As above Admission/Observation Consideration of admission/observation: Escalation of care including admission/observation considered Admission considered on presentation Lab Data [facility] Lab Attestation statement: I reviewed the patient's lab results. As above 10/31/23 17:43 10/31/23 17:43 Labs: Lab Results 10/31/23 10/31/23 Range/Units 17:43 19:23 WBC 9.3 (4.8-10.8) X10*3/uL RBC 3.76 L (4.20-5.50) X10*6/uL Hgb 11.1 L (12.0-16.0) g/dl Hct 33.0 L (37.0-47.0) % MCV 87.8 (80.0-98.0) fL MCH 29.5 (27.0-33.0) pg MCHC 33.6 (31.0-35.0) g/dl RDW 13.0 (11.0-16.0) % Plt Count 232 (160-400) X10*3/uL MPV 9.4 (9.4-12.3) fL Immature Gran % (Auto) 0.5 H (0.0-0.4) % Neut % (Auto) 70.0 (45-73) % Lymph % (Auto) 18.9 L (20-40) % [place] % (Auto) 8.1 (2-11) % Eos % (Auto) 2.0 (0-4) % Baso % (Auto) 0.5 (0-2) % Lymph # (Auto) 1.8 (1.2-4.9) X10*3/uL [place] # (Auto) 0.8 (0.1-1.2) X10*3/uL Eos # (Auto) 0.2 (0.0-0.4) X10*3/uL Baso # (Auto) 0.1 (0.0-0.2) X10*3/uL Abs Immat Gran (auto) 0.05 H (0.00-0.03) X10*3/uL Absolute Neuts (auto) 6.5 (2.0-8.3) x10*3/uL Absolute Nucleated RBC 0.000 (0.0-0.012) X10*3/uL Nucleated RBC % (auto) 0.0 (0.0-0.2) /100WBC PT 12.2 (11.1-13.3) SEC INR 1.0 (0.9-1.1) Sodium 140 (135-145) mmol/L Potassium 3.4 (3.3-5.1) mmol/L Chloride 105 (96-108) mmol/L Carbon Dioxide 26 (22-29) mmol/L Anion Gap 12 (12-20) BUN 6 L (9-16) mg/dL Creatinine 0.79 (0.5-1.4) mg/dL Estim Creat Clear Calc 56.1 Estimated GFR > 60 Random Glucose 100 (60-115) mg/dL Calcium 8.4 (8.4-10.2) mg/dL Magnesium 1.0 L* 1.6 (1.6-2.6) mg/dL Total Bilirubin 0.3 (0.0-1.0) mg/dL AST 15 (5-31) U/L ALT 8 (0-31) U/L Alkaline Phosphatase 69 (39-117) U/L Troponin I High Sens < 2.7 (<3.5-17.0) ng/L Total Protein 6.2 L (6.5-8.0) g/dL Albumin 3.8 (3.5-5.0) g/dL Lipase 34 (8-78) U/L Independent Interpretation I performed an independent interpretation of an: EKG and Plain X-Ray Interpretation: EKG showing normal sinus rhythm with a rate of 60 beats per minute, QT 432, no acute ischemic changes or ST elevations. X-ray left ribs with chest x-ray without rib fracture, agree with radiologist's interpretation. X-ray thoracic spine without fracture, agree with radiologist's interpretation. Radiology Impression Discussion of test interpretation with radiology: I have reviewed the radiologist's reading. Radiologist Impression: EXAMINATION: XR THORACOLUMBAR SPINE CLINICAL INFORMATION: Pain between scapula. COMPARISON: CTA chest 08/21/2023. TECHNIQUE: 2 views of the thoracic spine. FINDINGS: No evidence of acute compression deformity or subluxation. Yefw-df-vyyzdntu multilevel thoracic spondylosis. No significant paraspinal soft tissue abnormality. Midline sternal wires and plates are seen. XR/XR thoracic spine 2V IMPRESSION: 1. No acute compression deformity or subluxation. 2. Crtk-ww-ypektwra multilevel thoracic spondylosis. EXAMINATION: XR RIBS, LEFT CLINICAL INFORMATION: Chart pain posterior ribs. COMPARISON: CTA chest 08/21/2023. TECHNIQUE: 3 views of the left ribs were obtained. FINDINGS: Normal heart size. Midline sternal wires and plates are noted. No focal consolidation, pleural effusion or pneumothorax. Subtle platelike opacities in the lingula suggesting subsegmental atelectasis and/or scarring. No evidence of displaced rib fractures. Surgical clips are noted projecting over the right axillary region. XR/XR ribs LT min 3V w CXR1V IMPRESSION: 1. No acute cardiopulmonary findings. 2. No evidence of displaced rib fractures. Independent Historian Clinical information obtained from an independent historian. History obtained from or confirmed by: Other (daughter) External Record Review External record reviewed: Inpatient record, Office record, Outpatient record, Prior outpatient labs, Prior outpatient radiology, Primary care record and Outside ED record Prescription Management I considered prescription management with: Other (mag oxide) Chronic Conditions Patient?s care impacted by: Other (hypomag) Social Determinants Patient?s care significantly limited by Social Determinants of Health including: Other Social Determinant of Health Critical Care Time Critical Care Time Critical Care Time: No Discharge Plan Discharge Clinical Impression: Hypomagnesemia Patient Disposition: Home, Self-Care Additional Instructions: Your EKG is normal Your blood work showed low magnesium. This was repleted in the ED by IV. take magnesium oxide supplement as prescribed and follow-up with primary care provider for repeat magnesium level Your chest x-ray shows no abnormal findings. The x-ray of your thoracic spine shows no evidence of fracture Please follow-up with PCP in 1 week to have magnesium levels rechecked. Continue taking your magnesium supplements at home. Return with new or worsening symptoms. The case of an emergency call 911. Prescriptions: New magnesium oxide 400 mg magnesium capsule 400 mg PO DAILY Qty: 7 0RF No Action lisinopril 20 mg tablet 1 tab PO DAILY cyanocobalamin (vitamin B-12) 1,000 mcg tablet 1 tab PO DAILY aspirin [Aspir-81] 81 mg Tablet,Delayed Release (Dr/Ec) 81 mg PO DAILY lorazepam 0.5 mg tablet 1 tab PO DAILY PRN (Reason: anxiety) levothyroxine 50 mcg tablet 50 mcg PO DAILY omeprazole 20 mg capsule,delayed release(DR/EC) 1 cap PO DAILY Referrals: Physician,Unknown J [Primary Care Provider] - Interventions: ED Discharge Assessment Last Done: 10/31/23 21:04 Discharge Date/Time: 10/31/23 21:06 Print Language: Maltese
[2023-10-31 17:47] LABS: MANUAL DIFF FLAG NO
[2023-10-31 17:54] LABS: Basophils Absolute Auto 0.1 X10*3/uL (0.0-0.2); Basophils Percent Auto 0.5 % (0-2); Eosinophils Absolute Auto 0.2 X10*3/uL (0.0-0.4); Hemoglobin 11.1 g/dl (12.0-16.0); Imm Gran Abs Auto 0.05 X10*3/uL (0.00-0.03); Imm Gran Pct Auto 0.5 % (0.0-0.4); Lymphocytes Absolute Auto 1.8 X10*3/uL (1.2-4.9); Lymphocytes Percent Auto 18.9 % (20-40); Mean Corpuscular HGB Conc 33.6 g/dl (31.0-35.0); Mean Corpuscular Hemoglobin 29.5 pg (27.0-33.0); Mean Corpuscular Volume 87.8 fL (80.0-98.0); Mean Platelet Volume 9.4 fL (9.4-12.3); Monocytes Absolute Auto 0.8 X10*3/uL (0.1-1.2); Monocytes Percent Auto 8.1 % (2-11); Neutrophils Absolute Auto 6.5 x10*3/uL (2.0-8.3); Platelet Count 232 X10*3/uL (160-400); Red Blood Count 3.76 X10*6/uL (4.20-5.50); White Blood Count 9.3 X10*3/uL (4.8-10.8)
[2023-10-31 18:00] VITALS: BP 149/55; PULSE 59; TEMP 36.8; O2SAT 96
[2023-10-31 18:00] LABS: Prothrombin Time 12.2 SEC (11.1-13.3)
[2023-10-31] MEDS: Lidocaine 4 % Patch ADH..PATCH 1 PATCH TRANSDERMA (18:18)
[2023-10-31] MEDS: Baclofen 10 MG TABLET PO (18:18)
[2023-10-31 18:20] LABS: Alanine Aminotransferase 8 U/L (0-31); Albumin Level 3.8 g/dL (3.5-5.0); Alkaline Phosphatase 69 U/L (39-117); Anion Gap 12 (12-20); Aspartate Amino Transferase 15 U/L (5-31); Bilirubin Total 0.3 mg/dL (0.0-1.0); Blood Urea Nitrogen 6 mg/dL (9-16); Calcium 8.4 mg/dL (8.4-10.2); Carbon Dioxide 26 mmol/L (22-29); Chloride 105 mmol/L (96-108); Creatinine Clr Calc Pharmacy 56.1; Estimated Glomerular Filt Rate > 60; Glucose Random 100 mg/dL (60-115); Lipase 34 U/L (8-78); Potassium 3.4 mmol/L (3.3-5.1); Sodium 140 mmol/L (135-145); Total Protein 6.2 g/dL (6.5-8.0); Troponin-I High Sensitivity < 2.7 ng/L (<3.5-17.0)
[2023-10-31] MEDS: Magnesium Sulfate/H2O 2 GM/50 ML PIGGYBACK IV (18:28)
[2023-10-31 19:58] LABS: Magnesium 1.6 mg/dL (1.6-2.6)
[2023-10-31 20:00] VITALS: BP 143/56; PULSE 54; TEMP 37; O2SAT 95
[2023-10-31 21:04] VITALS: BP 143/56; PULSE 54; RESP 20; TEMP 37; O2SAT 95
== END 2023-10-31 21:06 | disposition home or self-care (01) ==
PROVIDERS: Nurse Practitioner Family; Physician Assistant Medical; Emergency Provider Internal Medicine
DX: E83.42 Hypomagnesemia (principal); R07.89 Other chest pain; M54.50 Low back pain, unspecified; R07.81 Pleurodynia; M54.6 Pain in thoracic spine; Z79.899 Other long term (current) drug therapy
CPT/HCPCS: 36415; 71101; 72070; 80053; 83690; 83735; 84484; 85025; 85610; 93005; 96365; 96366; 99284; J3475

== ENCOUNTER → 2023-10-31 16:42 | Outpatient (BNV) | payer MEDICARE, MEDICAID, SELFPAY | PROVIDERS: Emergency Provider Internal Medicine; Visit Provider Internal Medicine | DX: R07.9 Chest pain, unspecified (principal) | CPT/HCPCS: 93010 ==

== ENCOUNTER 2024-07-06 10:47 | Outpatient (REF) | payer MEDICARE, MEDICAID, SELFPAY | END 2024-07-06 10:48 | disposition home or self-care (01) | LOC: HO.MAMMO 10:47 | PROVIDERS: PCP Physician Assistant Surgical; Visit Provider Physician Assistant Surgical | DX: Z12.31 Encounter for screening mammogram for malignant neoplasm of breast (principal) | CPT/HCPCS: 77063; 77067 ==

== ENCOUNTER → 2024-07-06 11:15 | Outpatient (BNV) | payer MEDICARE, MEDICAID, SELFPAY | PROVIDERS: PCP Physician Assistant Surgical; Visit Provider Internal Medicine | DX: Z12.31 Encounter for screening mammogram for malignant neoplasm of breast (principal) | CPT/HCPCS: 77063; 77067 ==

== ENCOUNTER 2024-08-11 13:44 | Outpatient (REF) | payer MEDICARE, MEDICAID, SELFPAY ==
--- NOTE | 2024-08-11 13:47 | PFT_ITS ---
Flows: FEV1: 85 % of predicted at 1.90 L FVC: 92 % of predicted at 2.67 L FEV1/FVC: 71 % Bronchodilator response: Present in small to medium airways only Volumes: Total lung capacity: 90 % of predicted at 4.74 L Residual volume: 94 % of predicted at 2.07 L Slow vital capacity: 89 % of predicted at 2.67 L Expiratory reserve volume: 112 % of predicted at 0.84 L Diffusion capacity: Mildly decreased Impression: No obstructive or restrictive ventilatory defect. Bronchodilator response is present in small to medium airways only. Decreased diffusion capacity suggests emphysema. MTDD
[2024-08-11 14:30] VITALS: PULSE 72; O2SAT 98
--- OUTSIDE RECORDS SUMMARY | 2024-08-11 16:09 | XMS_ITS | Data Portability ---
Author Organization [facility], Endoscopy, [facility] Address [address] [place] [address] Assessment No assessment recorded. Plan of Treatment Reminders Order Date Submit Date Provider Last Modified By Organization Details Last Modified Time Details Appointments None record ed. Lab None record ed. Referral None record ed. Procedures None record ed. Surgeries None record ed. Imaging None record ed. Medication Orders None record ed. Patient TargetsNo targets recorded. Patient InstructionsNo instructions recorded. Reason for Referral None Reported. Procedures Surgical History Date Name Laterality Status Provider Name and Address Organization Details Recorded Time 4 Renée - Colonoscopy completed Justen Chinchilla MD [address] [place] [address], [id number], [facility] 05/21/2024 10:39:33 Imaging Results None recorded. Procedure Notes None recorded. Medical Equipment None Reported. Allergies Allergen ID Allergen Name Allergen Category Reaction Reaction Severity Criticality Documentation Date Start Date Code Code System Note Provider Name and Address Organization Details Recorded Time [id number] Substance with sulfonami de structure and antibacte rial mechanism of action (substanc e) medicatio n dyspnea Not available Not available 05/13/2024 [id number] SNOMED Coco Corral RN [facility], [facility] 4 15:16:29 Medications Name Sig Start Date Stop Date Status Note LastModified by Organization Details LastModified Time loperamide 2 mg capsule active Not Available Not Available N ot Available trazodone 50 mg tablet TAKE 0.5 TABLETS BY MOUTH NIGHTLY AT BEDTIME. MAY INCREASE DOSE TO 1 FULL TAB NIGHTLY IF INEFFECTIVE active Not Available Not Available Not Available lisinopril 20 mg tablet TAKE 1 TABLET BY MOUTH EVERY DAY active Not Available Not Available No t Available acetaminophe n 500 mg tablet TAKE 1 TABLET BY MOUTH EVERY 4 TO 6 HOURS NEEDED active Not Available Not Available No t Available famotidine 20 mg tablet TAKE 1 TABLET (20 MG TOTAL) BY MOUTH IN THE MORNING AND IN THE EVENING active Not Available Not Available No t Available magnesium oxide 400 mg (241.3 mg magnesium) tablet TAKE 1 TABLET (400 MG TOTAL) BY MOUTH 2 TIMES A DAY active Not Available Not Available Not Available lorazepam 0.5 mg tablet TAKE 1 TABLET BY MOUTH EVERY DAY NEEDED FOR ANXIETY active Not Available Not Available No t Available levothyroxin e 50 mcg tablet TAKE 1 TABLET BY MOUTH DIRECTED. TAKE 50 MCG DAILY EXCEPT TAKE 75 MCG 2 DAYS A WEEK active Not Available Not Available Not Available omeprazole 20 mg capsule,kathleen yed release TAKE 1 CAPSULE BY MOUTH EVERY DAY active Not Available Not Available No t Available bisacodyl 5 mg tablet,delay ed release TAKE 4 TABLETS THE DAY BEFORE PROCEDURE active Not Available Not Available No t Available lisinopril 5 mg tablet TAKE 1 TABLET (5 MG TOTAL) BY MOUTH DAILY. active Not Available Not Available No t Available ibuprofen 600 mg tablet TAKE 1 TABLET 4 TIMES A DAY WITH MEALS NEEDED active Not Available Not Available No t Available albuterol sulfate HFA 90 mcg/actuatio n aerosol inhaler INHALE 2 PUFFS INTO THE LUNGS EVERY 4 HOURS NEEDED FOR WHEEZE active Not Available Not Available No t Available Vitamin B-12 1,000 mcg tablet TAKE 1 TABLET BY MOUTH EVERY DAY active Not Available Not Available No t Available oxycodone 5 mg tablet TAKE 1 TABLET EVERY 6 HOURS NEEDED FOR BREAKTHROUG H PAIN. active Not Available Not Available No t Available chlorhexidin e gluconate 0.12 % mouthwash RINSE MOUTH WITH 15ML (1 CAPFUL) FOR 30 SECONDS IN MORNING AND EVENING AFTER BRUSHING, THEN SPIT active Not Available Not Available No t Available magnesium active Not Available Not Pat ilable Not Available levothyroxin e active Not Available Not Available Not Available lisinopril active Not Available Not Av ailable Not Available Vitamin D3 active Not Available Not Av ailable Not Available Vitamin B12 active Not Available Not A vailable Not Available budesonide-f ormoterol HFA 80 mcg-4.5 mcg/actuatio n aerosol inhaler TAKE 2 PUFFS BY MOUTH TWICE A DAY active Not Available Not Available No t Available GaviLyte-G 236 gram-22.74 gram-6.74 gram-5.86 gram oral solution USE DIRECTED active Not Available Not Available No t Available magnesium 400 mg (as magnesium oxide) capsule TAKE 1 CAPSULE BY MOUTH DAILY. active Not Available Not Available No t Available Vitals None Recorded Social History None recorded. Functional Status None recorded. Mental Status None recorded. Family History Nothing Reported. Medical History No medical history recorded. Gynecological HistoryNo gynecological history recorded. Obstetrics History GPAL:G 0 P 0 0 0 0 Past Encounters Encounter ID Performer Location Encounter Start Date Encounter Closed Date Diagnosis/Indication Diagnosis SNOMED-CT Code Diagnosis ICD10 Code Diagnosis Note [id number] Edwar Mcginnis RN Endoscopy , [address] [address] 05/21/2024 09:09:09 05/21/2024 12:45:39 Health Concerns Section Related Observation LastModified by Organization Detai ls LastModified Time None Recorded Concern Status LastModified by Organization Details LastModified Time None Recorded Advance Directives Directive None Recorded Payers Encounter Date Sequence Insurance Name Policy Number Policy Crespo Covered Member ID Crespo Member ID Guarantor Name 05/21/2024 1 [facility] - MEDICARE PREFERRED (MEDICARE REPLACEMENT HMO) [facility] Shelli Valenzuela [id number] Shelli Valenzuela 05/21/2024 1 [place]IC[place] B[place]: [employer] Shelli Valenzuela [id number] Shelli Valenzuela OBGyn Episode No OBEpisode recorded.
--- OUTSIDE RECORDS SUMMARY | 2024-08-11 16:09 | XMS_ITS | Clinical Summary ---
Author Organization [facility], Address [address] [place] [address] [place] [address] Phone Care Team Providers Care Supervisor Fabrication Name Role Phone Bob Chavez PA-C Primary Care Provider [phone] Medications acetaminophen (TYLENOL) 500 MG tablet Take by mouth every 6 (six) hours if needed for mild pain Active cholecalciferol (VITAMIN D-3 SUPER STRENGTH) 50 MCG (2000 UT) tablet Take 2,000 Units by mouth 1 (one) time each day Active cyanocobalamin (VITAMIN B-12) 1000 MCG tablet Take 1,000 mcg by mouth 1 (one) time each day Active levothyroxine (SYNTHROID, LEVOTHROID) 50 MCG tablet Take 50 mcg by mouth 1 (one) time each day Active lisinopril 5 MG tablet Take 5 mg by mouth 1 (one) time each day Active LORazepam (ATIVAN) 0.5 MG tablet Take 0.5 mg by mouth every 6 (six) hours if needed for anxiety Active Magnesium Oxide (MAG-OX 400 PO) Take by mouth Active famotidine (Pepcid) 20 MG tablet Take 1 tablet (20 mg total) by mouth in the morning and 1 tablet (20 mg total) in the evening. 180 tablet 3 04/26/2024 07/26/19 25 Active Problems Problem Noted Date Diagnosed Date Essential hypertension 04/26/2024 Gastroesophageal reflux disease 04/26/2024 Social History Tobacco Use Types Packs/Day Years Used Date Smoking Tobacco: Never Assessed Comments Unknown Sex and Gender Information Value Date Recorded Sex Assigned at Not on file Legal Sex Female 10:09 AM EST Gender Identity Not on file Sexual Orientation Not on file Plan of Treatment Health Maintenance Due Date Last Done Comments Breast Cancer Screening 1950 Colorectal Cancer Screening: Annual FOBT 1999 Colorectal Cancer Screening: Colonoscopy 1999 Colorectal Cancer Screening: Sigmoidoscopy 1999 Pneumococcal Vaccine: 65+ Years Completed 04/09/2019, 02/17/2015, 12/09/2013 Influenza Vaccine Completed 05/03/2024, 06/18/2021 Hepatitis B Vaccine Aged Out No longe r eligible based on patient's age to complete this topic Insurance [employer] Care Teams Supervisor Fabrication Relationship Specialty Start Date End Date Bob Chavez PA-C [address] [place] [phone] PCP - General 04/26/24
--- OUTSIDE RECORDS SUMMARY | 2024-08-11 16:09 | XMS_ITS ---
Author Organization [facility] Address [address] [place] [address] Care Team Providers Care Portable Router Operator Name Role Phone Arnulfo Woodward MD Primary Care Provider Dulce Marroquin Unavailable [phone] Allergies Allergen (clinical drug ingredient) Drug/Non Drug Allergy documented on EMR Reaction Allergy Type Onset Date Status sulfamethoxazole / trimethoprim Bactrim Unknown Drug Allergy Active REASON FOR VISIT Skin problem(s), At Risk Footcare, Painful Nail(s) aggravated by shoes and causing difficulty standing/walking. Medications Medication SIG (Take, Route, Fr equency, Duration) Notes Start Date End Date Status Vitamin B12 Active Magnesium Active Omeprazole Active Lisinopril Active Levothyroxine Sodium Active Ammonium Lactate 12 % 1 application Exte rnally to affected areas of dry skin to feet except for between the toes Twice a day for 30 days Act coretta Vitamin D3 Active Social History Tobacco Use: Social History Observation Description Date Details (start date - stop date) Current Smoker NA - NA Tobacco use other than smoking: Question Answer Notes Are you an other tobacco user? No Tobacco Control (Standard) Question Answer Notes Tobacco use: Current smoker AUDIT-C (Standard) Question Answer Notes Did you have a drink containing alcohol in the p ast year? No Points 0 Interpretation Negative Problems Problem Type SNOMED Code ICD Code Onset Dates Problem Status W/U Status Risk Notes Problem Bilateral atherosclerosis of arteries of lower limbs ([id number] ) Atherosclerosis of alutiiq artery of both lower extremities, with unspecified presence of clinical manifestation (I70.203) Active confirmed Q7(A), Q8(2B), Q9(1B,2 C) Vital Signs Height 5ft 4inch in 06/09/2024 Weight 108 lbs 06/09/2024 BMI 18.54 kg/m2 06/09/2024 Blood pressure systolic 120 mm Hg 06/09/19 Blood pressure diastolic 80 mm Hg 025 Procedures Procedure Date Ordered Date Performed Result Body Sit e 70889-ZGNTPKS NAIL, 6 OR MORE 06/09/2024 N/A 29151-VCKZ SKIN LESIONS, 2 TO 4 06/09/2024 N/A Encounters Encounter Location Date Provider Diagnosis [facility] [place] [address] [place] [address] 06/09/2024 Dulce Lechuga Xerosis of skin L85.3 ; Atherosclerosis of alutiiq artery of both lower extremities, with unspecified presence of clinical manifestation I70.203 ; Tinea unguium B35.1 ; Pain in right toe(s) M79.674 and Pain in left toe(s) M79.675 Assessments Encounter Date Diagnosis (ICD Code) Assessment Notes Treatment Notes Treatment Clinical Notes Section Notes 06/09/2024 Xerosis of skin (ICD-10 - L85.3) 06/09/2024 Atherosclerosis of alutiiq artery of both lower extremities, with unspecified presence of clinical manifestation (ICD-10 - I70.203) Q7(A), Q8(2B), Q9(1B,2C) 06/09/2024 Tinea unguium (ICD-10 - B35.1) 06/09/2024 Pain in right toe(s) (ICD-10 - M79.674) 06/09/2024 Pain in left toe(s) (ICD-10 - M79.675) Plan Of Treatment Medication Medication Name Sig Start Date Stop Date Notes Ammonium Lactate 12 % 1 application Exte rnally to affected areas of dry skin to feet except for between the toes Twice a day for 30 days Pending Test Test Name Order Date 08242-JXRTTWZ NAIL, 6 OR MORE 06/09/2024 23919-RGCL SKIN LESIONS, 2 TO 4 06/09/19 25 Next Appt Details Follow Up: 3 Months, Reason: Provider Name:Dulce winston, 10/13/2024 09:00:00 AM, [address] [place] [address], [phone], Provider Name:Dulce Vieira catrachito, 12/15/2024 09:00:00 AM, [address] [place] [address], [phone], Procedure Notes * Category Sub-Category Detail Notes Debride Nail 6-10 Nail debridement Due to the cl inical pathology outlined in the exam findings, performance of this nail treatment is medically necessary as its management by an unskilled/untrained nonprofessional would put this patients foot and overall health at risk. Therefore, debridement to affected nail(s), as described in exam ( TA, T1, T2, T3, T4, T5, T6, T7, T8, T9, ), was performed exclusively by the physician of record to reduce/remove overall nail length, girth, thickness, subungual debris, and necrotic tissue, by manual and/or electrical means through the use of a nail nipper and/or dremel-type beef grinder, to a more viable healthy nail plate or bed tissue 6-10 nails in total. Silver nitrate was used for any petechial bleeding as necessary. Definitive antifungal treatment options, both pharmaceutical and surgical, have been reviewed and discussed with the patient. The patient solely prefers the use of intermittent/as needed professional debridement services for their nail condition and understands the need for additional periodic treatments to maintain effectiveness in symptomatic relief - 40041 Keratoma Treatment Parring or Cutting o f Benign Hyperkeratotic Lesion(s) (-56) 2-4 Lesions - Due to the at risk nature of the patients medical condition as documented in the exam findings, performance of this keratoderma treatment is medically necessary as its management by an unskilled/untrained nonprofessional would put this patients foot and overall health at risk. Therefore, the benign hyperkeratotic lesions, ( 4 ) in total, locations as stated and described in the exam ( plantar heels B/L, sub 5th MTH B/L ), were pared, and/or cut utilizing a sterile 15 blade, tissue nippers, and/or power dremel instrumentation by the physician of record - 13980, Q8 Progress Notes * Shelli VALENZUELA RDOB:1950 (73 yo F)Acc No.[id number]:06/09/2024 Progress Notes Patient:?Shelli VALENZUELA Provider:?Dulce Lechuga DPM :1950???Age:73 Y???Sex:Female D ate:06/09/2024 Address:[address] [place] [address] Pcp:Arnulfo Woodward MD Subjective: * Chief Complaints: * ???Skin problem(s)At Risk Fo otcarePainful Nail(s) aggravated by shoes and causing difficulty standing/walking. * HPI: ???Skin problems:?Nature:?dryness , scaling.?Location:?B/L .?Duration:?several days.?Course:?worse.?At Risk footcare:?Pt States Last PCP Visit:?Date?04/06/2024 * ROS:?General/Constitutional:?Nausea?denies.?Vomiting?denies.?Hunger Thirst?denies.?Loss appetite?denies.?Chills?denies.?Fatigue?denies.?Fever?denies.?Night Sweats?denies.?Unexplained weight loss?denies.?Unexplained weight gain?denies.?HEENTM:?Dentures?admits.?Dizziness?denies.?Glasses/contacts?denies.?Retinopathy?de nies.?Blurred/double vision?denies.?TMJ?denies.?Discharge/drainage?denies.?Implants?denies.?Sore throat?denies.?Dental implants?denies.?Hard of hearing ?denies.?Difficulty chewing/swallowing/speaking?denies.?Nose bleeds?denies.?Sore mouth?denies.?Respiratory:?On Oxygen?denies.?Pneumonia/pleurisy?denies.?Bronchitis?denies.?Emphysema?denies.?C oughing?denies.?Cough blood?denies.?Shortness of breath?denies.?Wheezing?denies.?Cardiovascular:?Pacemaker?denies.?MVP?denies.?WPW?denies.?CHF?denies.?Heart attack?denies.?Septal defect?denies.?Rapid beat?denies.?Chest pain ?denies.?Atrial Fib.?denies.?Murmur/Palpitations?denies.?Gastrointestinal:?Hemorrhoids?denies.?Stomach/Abdominal pain?denies.?Dark blood stool?denies.?Irritable bowel ?denies.?Constipation?denies.?Diarrhea?denies.?Hematology:?Swelling?denies.?Clots?denies.?Varicose Veins?denies.?Bruising?denies.?Bleeding problem?denies.?Genitourinary:?Blood urine?denies.?Frequent/Painfu/urination/bladder control?denies.?Kidney stones?denies.?Infection (UTI)?denies.?Nephropathy?denies.?sex trans dis (STD)?denies.?Prostate?denies.?Musculoskeletal:?Hammertoes?denies.?Bunions?denies.?Back Pain?denies.?Muscle Cramps/ Resting?denies.?Muscle cramps / walking?denies.?Generalized aches and pains?denies.?Weakness?denies.?Integ.:?Barba?denies.?Scars?denies.?Corns/calluses?admits.?Ingrown nails?denies.?Painful nails?denies.?Open Sores?denies.?Rashes?denies.?Neurologic:?Difficulty sleeping?denies.?Brain disorder?denies.?Numbness?denies.?Balance trouble?denies.?Confusion?denies.?Fainting/blackouts?denies.?Tingling?denies.?Tr emors?denies.? * Medical History:? * Surgical History:?Denies Pas t Surgical History * Hospitalization/Major Diagno stic Procedure:?Denies Past Hospitalization * Family History:?Mother: dece ased.?Father: .? * Social History:?Tobacco Use:?Tobacco use other than smoking?Are you an other tobacco user??No ?Tobacco Control (Standard)?Tobacco use:?Current smoker ???Drugs/Alcohol:?Drugs?Have you used drugs other than those for medical reasons in the past 12 months??No ???Miscellaneous:?Caffeine: yes, frequency:. ?Children: yes, 3. ?Exercise: no. ?Marital status: . ???Drug/Alcohol:?AUDIT-C (Standard)?Did you have a drink containing alcohol in the past year??No ?Points?0 ?Interpretation?Negative * Medications:?TakingVitamin D 3 Vitamin B12 Magnesium Omeprazole Lisinopril Levothyroxine Sodium Taking Vitamin D3 Taking Vitamin B12 Taking Magnesium Taking Omeprazole Taking Lisinopril Taking Levothyroxine Sodium * Allergies:?Bactrim Objective: * Vitals:?Ht:5ft 4inch, Wt:108 , BMI:18.54, Shoe size:7, BP:120/80mm Hg, Ht-cm: 162.56 cm, Wt-k.99 kg. * Examination: ???Dermatologic: ?SKIN FINDINGS:?Skin shows sign(s) of, dryness, scaling, in a stocking fashion, no fissure(s) present, B/L , Skin exam reveals Keratotic lesion(s) located at sub 5th metatarsal head B/L, plantar heels B/L.?Vascular: ?DP PULSES (B):? 0/4, B/L.?PT PULSES (B):? 0/4, B/L.?CAPILLARY FILL TIME:? delayed, all digits, B/L.?TROPHIC CONDITION-TEXTURE/ELASTICITY/TURGOR/HAIR GROWTH (B):? decreased, fragile, thin, shiny skin, with sparse to absent hair growth, B/L.?TEMPERTURE GRADIENT (C):? decreased, cool to cool, proximal to distal, B/L.?PIGMENTATION:?rubrous, B/L.?EDEMA (C):?absent, B/L.?CLAUDICATION (C):?denies, B/L.?REST PAIN:?denies, B/L.?PARESTHESIA (C):?absent, B/L.?BURNING (C):?absent, B/L.?Nails: ?NAILS are:?Elongated, overgrown, dystrophic, lytic, greater than 3mm thick, discolored and friable with crumbly malodorous subungual debris, with pain on palpation, TA, T1, T2, T3, T4, T5, T6, T7, T8, T9.?Orthopedic: ?MUSCLE STRENGTH:?5/5 all groups in a symmetrical fashion, B/L.?Neurological: ?SENSORY:?Neurological exam reveals intact sensorium, pain sensation normal, vibration sensation intact, pinprick sensation is normal in the lower extremities, Pt denies, anesthesia, burning, paresthesia, tingling, B/L.?General Examination: ?GENERAL APPEARANCE:?Reveals a pleasant, alert, well nourished, well- developed, well hydrated individual, who demonstrates proper attention to hygiene/body habitus, and is in no acute distress, Pt serves as own historian for office visit today.?ORIENTED:?person, place, and time.? Assessment: * Assessment: 1.?Xerosis of skin - L85.3?? ?Specify :Acute problem, Uncomplicated (3),Rx Management (4)???2.?Atherosclerosis of alutiiq artery of both lower extremities, with unspecified presence of clinical manifestation - I70.203 (Primary)???Notes :Q7(A), Q8(2B), Q9(1B,2C)???3.?Tinea unguium - B35.1???4.?Pain in right toe(s) - M79.674???5.?Pain in left toe(s) - M79.675??? Plan: * Treatment: 2.?Xerosis of skin? Start Ammonium Lactate Cream, 12 %, 1 application, Externally to affected areas of dry skin to feet except for between the toes, Twice a day, 30 days, 280, Refills 3.?? 3.?Tinea unguium?Procedure: 38830-CIGGGQE NAIL, 6 OR MORE * Procedures:?Debride Nail 6-10:?Nail debridement?Due to the clinical pathology outlined in the exam findings, performance of this nail treatment is medically necessary as its management by an unskilled/untrained nonprofessional would put this patients foot and overall health at risk. Therefore, debridement to affected nail(s), as described in exam ( TA, T1, T2, T3, T4, T5, T6, T7, T8, T9, ), was performed exclusively by the physician of record to reduce/remove overall nail length, girth, thickness, subungual debris, and necrotic tissue, by manual and/or electrical means through the use of a nail nipper and/or dremel-type beef grinder, to a more viable healthy nail plate or bed tissue 6- 10 nails in total. Silver nitrate was used for any petechial bleeding as necessary. Definitive antifungal treatment options, both pharmaceutical and surgical, have been reviewed and discussed with the patient. The patient solely prefers the use of intermittent/as needed professional debridement services for their nail condition and understands the need for additional periodic treatments to maintain effectiveness in symptomatic relief - 32186.?Keratoma Treatment:?Parring or Cutting of Benign Hyperkeratotic Lesion(s)?(-56) 2-4 Lesions - Due to the at risk nature of the patients medical condition as documented in the exam findings, performance of this keratoderma treatment is medically necessary as its management by an unskilled/untrained nonprofessional would put this patients foot and overall health at risk. Therefore, the benign hyperkeratotic lesions, ( 4 ) in total, locations as stated and described in the exam ( plantar heels B/L, sub 5th MTH B/L ), were pared, and/or cut utilizing a sterile 15 blade, tissue nippers, and/or power dremel instrumentation by the physician of record - 74945, Q8.? * Procedure Codes:?32220 DEBRI DE NAIL, 6 OR MORE, Modifiers: XS 53582 TRIM SKIN LESIONS, 2 TO 4, Modifiers: XS , Q8 * Preventive Medicine:? ??Counseling:?Tobacco use:?Type of Tobacco Use Cessation Counseling provided?Smoking effects education ?Patient counseled on the dangers of smoking and urged to quit:?06/09/2024 ?Discussion:?-03: Office or other outpatient visit for the evaluation and management of a new patient, which required a medically appropriate history and/or examination and LOW level of DECISION MAKING for: 1 STABLE ACUTE UNCOMPLICATED PROBLEM, 2 OR MORE MINOR PROBLEMS, OR 1 STABLE CHRONIC PROBLEM, THAT POSE(S) A LOW RISK FOR MORBIDITY/MORTALITY. The visit on the day of the encounter encompassed interpreting the data and educating the patient as to the nature of their condition, treatment options available according to their individual PMH, meds, allergies, and overall health/living conditions, as well as any potential risks or complications that may occur from a failure to adhere to, and participate in, the recommended course of therapy. The discussion included a complete verbal, and/or written explanation of the examination results, any x-rays taken, the proposed diagnosis, and outline of the treatment plan. A schedule for future care needs was also explained. The patient verbalized an understanding of the instructions at this time and agreed to be an active participant in their treatment. If the patient should think of any questions or concerns after the visit, I have encouraged the patient to call the office.?Xerosis:?The patient was counseled on the diagnosis, potential etiologies, and treatment options for their skin condition. We discussed the risks and benefits of each option from performing no treatment, to utilizing OTC topical skin creams/ointments, to utilizing prescription topical creams/ointments, to utilizing customized compounded topical medications and use of nocturnal occlusion with any/all previously detailed therapies. We discussed the advantages and disadvantages of each possible treatment and importance for adherence to all the recommended therapies for optimum success and avoid potential complications such as open sore/infection/possible hospitalization. We discussed the potential effectiveness of each topical preparation as well as each ones possible side effects and/or patient medication interactions. Patient questions re: use, dosage, successful outcomes, and application consistency were reviewed and the patient verbalized that all answers were clearly understood. The patient has decided to apply Rx skin creams to their feet save the interspaces while paying special attention to the heels. Such was sent to their pharmacy at the time of visit.? ??Screening/Special Tests:?Fall Risk?Screening:?No falls in the past year ?FALLS: Screening for Future Fall Risk?Have you had any falls with injury in the past year??No * Follow Up:?3 Months * Images: * Sign off status: Completed true * Provider:?Dulce Lechuga DPM Date:?0 06/09/2024 Generated for Gertrudis ross/Monet/Anahismitting on:?08/11/2024 04:09 PM EDT History and Physical Notes * HPI (History of Present Illness) Category Sub-Category Detail Notes Category Not es Skin problems Nature: dryness , scaling Location: B/L Duration: several days Course: worse At Risk footcare Pt States Last PCP Visit: Date: 4 Examination Category Sub-Category Detail Notes Category Not es Neurological SENSORY: Neurological exa m reveals intact sensorium, pain sensation normal, vibration sensation intact, pinprick sensation is normal in the lower extremities, Pt denies, anesthesia, burning, paresthesia, tingling, B/L Dermatologic SKIN FINDINGS: Skin shows sign( s) of, dryness, scaling, in a stocking fashion, no fissure(s) present, B/L , Skin exam reveals Keratotic lesion(s) located at sub 5th metatarsal head B/L, plantar heels B/L Orthopedic MUSCLE STRENGTH: 5/5 all groups in a symmetrical fashion, B/L General Examination GENERAL APPEARANCE: Reveals a pleasant, alert, well nourished, well-developed, well hydrated individual, who demonstrates proper attention to hygiene/body habitus, and is in no acute distress, Pt serves as own historian for office visit today ORIENTED: person, place, and t court Vascular DP PULSES (B): 0/4, B/L PT PULSES (B): 0/4, B/L CAPILLARY FILL TIME: delayed, all digits , B/L TEMPERTURE GRADIENT (C): decreased, cool to cool, proximal to distal, B/L TROPHIC CONDITION-TEXTURE/ELASTICITY/TURGOR/HAIR GROWTH (B): decreased, fragile, thin, shiny skin, wi th sparse to absent hair growth, B/L EDEMA (C): absent, B/L CLAUDICATION (C): denies, B/L REST PAIN: denies, B/L PIGMENTATION: rubrous, B/L PARESTHESIA (C): absent, B/L BURNING (C): absent, B/L Nails NAILS are: Elongated, overg rown, dystrophic, lytic, greater than 3mm thick, discolored and friable with crumbly malodorous subungual debris, with pain on palpation, TA, T1, T2, T3, T4, T5, T6, T7, T8, T9
--- OUTSIDE RECORDS SUMMARY | 2024-08-11 16:09 | XMS_ITS | Encounter Summary ---
Author Organization [facility], Address [address] [place] [address] Phone Care Team Providers Care Retina Subspecialist Name Role Phone Bob Chavez PA-C Primary Care Provider [phone] Encounter Details Date Type Department Care Team (Late st Contact Info) Description 05/12/2024 Documentation Only [facility], [address] [place] [address] José WalkerPROVENCAL, [place] [address] [place] [address] Social History Tobacco Use Types Packs/Day Years Used Date Smoking Tobacco: Never Assessed Comments Unknown Sex and Gender Information Value Date Recorded Sex Assigned at Not on file Legal Sex Female 10:09 AM EST Gender Identity Not on file Sexual Orientation Not on file documented as of this encounter Plan of Treatment Not on file documented as of this encounter Visit Diagnoses Not on filedocumented in this encounter Care Teams Retina Subspecialist Relationship Specialty Start Date End Date Bob Chavez PA-C [address] [place] [address] PCP - General 04/26/24 documented as of this encounter
--- OUTSIDE RECORDS SUMMARY | 2024-08-11 16:10 | XMS_ITS ---
Author Organization [facility] Address [address] [place] [address] Care Team Providers Care J2Ee Architect Name Role Phone Arnulfo Woodward MD Primary Care Provider Dulce Marroquin [phone] REASON FOR VISIT STRAIGHT CUTTER MACHINE PPWK Entered Encounters Encounter Location Date Provider Diagnosis [address] [address] 04/15/2024 Dulce Lechuga Plan Of Treatment Next Appt Details Provider Name:Dulce winston, 10/13/2024 09:00:00 AM, [address] [place] [address], [phone], Provider Name:Dulce winston, 12/15/2024 09:00:00 AM, [address] [place] [address], [phone], Progress Notes * Shelli VALENZUELA RDOB:1950 (73 yo F)Acc No.[id number]:04/15/2024 Patient:?Shelli VALENZUELA :1950???Age:73 Y???Sex:Female Address:[address] [place] [address] * true * Date:? Generated for Printi ng/Faxing/eTransmitting on:?08/11/2024 04:09 PM EDT
--- OUTSIDE RECORDS SUMMARY | 2024-08-11 16:10 | XMS_ITS | Patient Health Record ---
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 Name Role Phone Arnulfo Woodward MD Primary Care Provider Dulce Marroquin Unavailable [phone] Nisha Medley Unavailable [phone] Allergies Allergen (clinical drug ingredient) Drug/Non Drug Allergy documented on EMR Reaction Allergy Type Onset Date Status sulfamethoxazole / trimethoprim Bactrim Unknown Drug Allergy Active Reason For Referral Diagnosis 1 Pain in unspecified foot (M79.673) Referring Provider First Name Arnulfo Referring Provider Last Name Trace [facility] Provider Dulce Lechuga Referred Address [address] [place], [place],[address],[place] Referred Provider Specialty Podiatry Referral Priority Routine Diagnosis 1 Atherosclerosis of n ative artery of both lower extremities, with unspecified presence of clinical manifestation (I70.203) Diagnosis 2 Pain in left toe(s) (M79.675) Diagnosis 3 Pain in right toe(s) (M79.674) Diagnosis 4 Tinea unguium (B35.1 ) Diagnosis 5 Xerosis of skin (L85 .3) Referring Provider First Name Arnulfo Referring Provider Last Name Trace Referred [facility] Referred Provider Nisha Medley Referred Address [address], [place],[address],[place] Referred Provider Specialty Podiatry Referral Priority Routine Medications Medication SIG (Take, Route, Frequency, Duration) Notes Start Date End Date Status Vitamin B12 Active Vitamin D3 Active Omeprazole Not-Takin g Magnesium Active Levothyroxine Sodium Active Lisinopril Not-Takin g Ammonium Lactate 12 % 1 application Exte rnally to affected areas of dry skin to feet except for between the toes Twice a day for 30 days Active Social History Tobacco Use: Social History Observation Description Date Details (start date - stop date) Current Smoker 07/27/1984 - NA Tobacco use other than smoking: Question Answer Notes Are you an other tobacco user? No Tobacco Control (Standard) Question Answer Notes Tobacco use: Current smoker When did you start smoking? 07/27/1984 How often do you smoke cigarettes? Every day How many cigarettes a day do you smoke? 6-10 How soon after you wake up d o you smoke your first cigarette? 6-30 minutes Are you interested in quitting? Thinking about q uitting Additional Findings: Tobacco user Modera te cigarette smoker (10-19 cigs/day) AUDIT-C (Standard) Question Answer Notes Did you have a drink containing alcohol in the p ast year? No Points 0 Interpretation Negative Problems Problem Type SNOMED Code ICD Code Onset Dates Problem Status W/U Status Risk Notes Problem Plantar wart (70970215) Plantar wart (B07.0) Active confirmed Problem Bilateral atherosclerosis of arteries of lower limbs (11629589742319968 ) Atherosclerosis of washoe artery of both lower extremities, with unspecified presence of clinical manifestation (I70.203) Active confirmed Q7(A), Q8(2B), Q9(1B,2 C) Vital Signs Blood pressure diastolic 80 mm Hg 08/11/2024 Height 5ft 6inch in 08/11/2024 Blood pressure systolic 120 mm Hg 08/11/2024 Weight 110 lbs 08/11/2024 BMI 17.75 kg/m2 08/11/2024 Procedures Procedure Date Ordered Date Performed Result Body Sit e 57565-HQBQRSU NAIL, 6 OR MORE 06/09/2024 N/A 06587-VGSF SKIN LESIONS, 2 TO 4 06/09/2024 N/A Encounters Encounter Location Date Provider Diagnosis [facility] [address] [place] [address] 06/09/2024 Ducle Lechuga Xerosis of skin L85.3 ; Atherosclerosis of washoe artery of both lower extremities, with unspecified presence of clinical manifestation I70.203 ; Tinea unguium B35.1 ; Pain in right toe(s) M79.674 and Pain in left toe(s) M79.[address] [address] 08/11/2024 Nisha Medley Xerosis of skin L85. 3 ; Atherosclerosis of washoe artery of both lower extremities, with unspecified presence of clinical manifestation I70.203 ; Tinea unguium B35.1 ; Pain in right toe(s) M79.674 ; Pain in left toe(s) M79.675 ; Right foot pain M79.671 ; Plantar wart B07.0 and Left foot pain M79.[address] [address] 04/15/2024 Dulce Lechuga Assessments Encounter Date Diagnosis (ICD Code) Assessment Notes Treatment Notes Treatment Clinical Notes Section Notes 06/09/2024 Xerosis of skin (ICD-10 - L85.3) 08/11/2024 Xerosis of skin (ICD-10 - L85.3) 08/11/2024 Atherosclerosis of washoe artery of both lower extremities, with unspecified presence of clinical manifestation (ICD-10 - I70.203) Q7(A), Q8(2B), Q9(1B,2C) 06/09/2024 Atherosclerosis of washoe artery of both lower extremities, with unspecified presence of clinical manifestation (ICD-10 - I70.203) Q7(A), Q8(2B), Q9(1B,2C) 08/11/2024 Tinea unguium (ICD-10 - B35.1) 08/11/2024 Pain in right toe(s) (ICD-10 - M79.674) 06/09/2024 Tinea unguium (ICD-10 - B35.1) 08/11/2024 Pain in left toe(s) (ICD-10 - M79.675) 06/09/2024 Pain in right toe(s) (ICD-10 - M79.674) 08/11/2024 Right foot pain (ICD-10 - M79.671) 06/09/2024 Pain in left toe(s) (ICD-10 - M79.675) 08/11/2024 Plantar wart (ICD-10 - B07.0) 08/11/2024 Left foot pain (ICD-10 - M79.672) Plan Of Treatment Pending Test Test Name Order Date 84903-PPQARQB NAIL, 6 OR MORE 06/09/2024 28520-JOJX SKIN LESIONS, 2 TO 4 06/09/19 25 Next Appt Details Provider Name:Dulce winston, 10/13/2024 09:00:00 AM, [address] [place] [address], [phone], Provider Name:Dulce winston, 12/15/2024 09:00:00 AM, [address] [place] [address], [phone], Insurance Providers Payer Name Payer Address Payer Phone Subscriber Number Group Number Insured Name Patient Relationship to Insured Coverage Start Date Coverage End Date [employer] Preferred [address] [place] [phone] [id number] Shelli Valenzuela Self - patient is the insured 4 Medical (General) History Medical History History ICD Code High Blood Pressure thyroid
--- OUTSIDE RECORDS SUMMARY | 2024-08-11 16:10 | XMS_ITS | Encounter Summary ---
Author Organization [facility] Address [address] [place] [address] Care Team Providers Care Manager Wireless Name Role Phone Unavailable Primary Care Provider Unavailabl e Encounter Details Date Type Department Care Team (Latest Contact Info) Description 07/26/2019 Abstract C CONVERSIONS Dental, Provider, DDS Social History Tobacco Use Types Packs/Day Years Used Date Smoking Tobacco: Never Assessed Comments Unknown Sex and Gender Information Value Date Recorded Sex Assigned at Female 03/25/2022 10:26 AM EDT Legal Sex Female 10:26 AM EDT Gender Identity Female 03/25/2022 10:26 AM EDT Sexual Orientation Straight 03/25/2022 10 :26 AM EDT documented as of this encounter Plan of Treatment Not on file documented as of this encounter Visit Diagnoses Not on filedocumented in this encounter
--- OUTSIDE RECORDS SUMMARY | 2024-08-11 16:10 | XMS_ITS | Encounter Summary ---
Author Organization [facility], Address [address] [place] [address] Phone Care Team Providers Care Concrete Batcher Name Role Phone Bob Chavez PA-C Primary Care Provider [phone] Encounter Details Date Type Department Care Team (Late st Contact Info) Description 04/26/2024 Documentation Only [facility], [address] [place] [address] [place], [place] [address] [place] [address] Social History Tobacco Use Types [...] on filedocumented in this encounter Care Teams Concrete Batcher Relationship Specialty Start Date End Date Bob Chavez PA-C [address] [place] [address] PCP - General 04/26/24 documented as of this encounter
--- OUTSIDE RECORDS SUMMARY | 2024-08-11 16:10 | XMS_ITS | Clinical Summary ---
Author Organization [employer] Address [address] [place] [address] [address] [place] [address] Care Team Providers Care Meter Reader Name Role Phone Unavailable Primary Care Provider Unavailabl e Social History Tobacco Use Types Packs/Day Years Used Date Smoking Tobacco: Never Assessed Comments Unknown Sex and Gender Information Value Date Recorded Sex Assigned at Female 03/25/2022 10:26 AM EDT Legal Sex Female 10:26 AM EDT Gender Identity Female 03/25/2022 10:26 AM EDT Sexual Orientation Straight 03/25/2022 10 :26 AM EDT Plan of Treatment Health Maintenance Due Date Last Done Comments CT Colonography 1950 Colonoscopy 1950 Colorectal Cancer Screening 1950 Depression Screening 1950 FIT DNA/Cologuard 1950 FIT 1950 FOBT 1950 Sigmoidoscopy 1950 Alcohol/Substance Use Screening 1962 Tobacco Screening 1962 DTaP/Tdap/Td Vaccines (1 - Tdap) 1969 Mammogram 1990 Pneumococcal Vaccine: 50+ Ye ars (1 of 1 - PCV) 2000 Zoster Vaccines (1 of 2) 2000 COVID-19 Vaccine ( - 2023-2 5 season) 2024 Influenza Vaccine (#1) 2024 RSV Patients and Pa tients Aged 60 years or older (1 - 1-dose 75+ series) 2025 HIB Vaccines Aged Out No longer eligi ble based on patient's age to complete this topic HPV Vaccines Aged Out No longer eligi ble based on patient's age to complete this topic Hepatitis A Vaccines Aged Out No long er eligible based on patient's age to complete this topic Hepatitis B Vaccines Aged Out No long er eligible based on patient's age to complete this topic IPV Vaccines Aged Out No longer eligi ble based on patient's age to complete this topic Meningococcal Vaccine Aged Out No cam katie eligible based on patient's age to complete this topic RSV under 20 months Aged Out No longe r eligible based on patient's age to complete this topic Rotavirus Vaccines Aged Out No longer eligible based on patient's age to complete this topic
--- OUTSIDE RECORDS SUMMARY | 2024-08-11 16:10 | XMS_ITS ---
Author Organization [facility] Address [address] [facility] [place] [address] Care Team Providers Care Hypo Dipper Name Role Phone Arnulfo Woodward MD Primary Care Provider UnavailDulce Niño Unavailable [phone] Nisha Medley Unavailable [phone] Allergies Allergen (clinical drug ingredient) Drug/Non Drug Allergy documented on EMR Reaction Allergy Type Onset Date Status sulfamethoxazole / trimethoprim Bactrim Unknown Drug Allergy Active REASON FOR VISIT Skin problem(s), At Risk Footcare, Painful Nail(s) aggravated by shoes and causing difficulty standing/walking., Wart(s) Medications Medication SIG (Take, Route, Frequency, Duration) Notes Start Date End Date Status Omeprazole Not-Takin g Magnesium Active Levothyroxine Sodium Active Lisinopril Not-Takin g Ammonium Lactate 12 % 1 application Exte rnally to affected areas of dry skin to feet except for between the toes Twice a day for 30 days Active Vitamin B12 Active Vitamin D3 Active Social History Tobacco Use: [...] W/U Status Risk Notes Problem Plantar wart (43468618) Plantar wart (B07.0) Active confirmed Vital Signs Height 5ft 6inch in 08/11/2024 Weight 110 lbs 08/11/2024 BMI 17.75 kg/m2 08/11/2024 Blood pressure systolic 120 mm Hg 08/12/19 25 Blood pressure diastolic 80 mm Hg 025 Encounters Encounter Location Date Provider Diagnosis [facility] [place] [address] [place] [address] 08/11/2024 Nisha Galindo Xerosis of skin L85. 3 ; Atherosclerosis of [place] artery of both lower extremities, with unspecified presence of clinical manifestation I70.203 ; Tinea unguium B35.1 ; Pain in right toe(s) M79.674 ; Pain in left toe(s) M79.675 ; Right foot pain M79.671 ; Plantar wart B07.0 and Left foot pain M79.672 Assessments Encounter Date Diagnosis (ICD Code) Assessment Notes Treatment Notes Treatment Clinical Notes Section Notes 08/11/2024 Xerosis of skin (ICD-10 - L85.3) 08/11/2024 Atherosclerosis of [place]ark[place] point artery of both lower extremities, with unspecified presence of clinical manifestation (ICD-10 - I70.203) Q7(A), Q8(2B), Q9(1B,2C) 08/11/2024 Tinea unguium (ICD-10 - B35.1) 08/11/2024 Pain in right toe(s) (ICD-10 - M79.674) 08/11/2024 Pain in left toe(s) (ICD-10 - M79.675) 08/11/2024 Right foot pain (ICD-10 - M79.671) 08/11/2024 Plantar wart (ICD-10 - B07.0) 08/11/2024 Left foot pain (ICD-10 - M79.672) Plan Of Treatment Next Appt Details Follow Up: 2 Months, Reason: Provider Name:Dulce winston, 10/13/2024 09:00:00 AM, [address] [place] [address], [phone], Provider Name:Dulce winston, 12/15/2024 09:00:00 AM, [address] [place] [address], [phone], Procedure Notes * Category Sub-Category Detail Notes Wart Treatment Procedure Verruca, as desc ribed in exam, were debrided to pin-point bleeding margins with sterile 15 surgical blade, silver nitrate chemocautery applied, recomm. immune-boosting meds such as zinc, recomm. follow up with topical chemosurgical agents, Pt defers any other forms of tx - 48764 Debride Nail 6-10 Nail debridement Due to [...] use of a nail nipper and/or dremel-type diamond grinder, to a more viable healthy nail [...] to maintain effectiveness in symptomatic relief - 86055 Keratoma Treatment Parring or Cutting o f Benign Hyperkeratotic Lesion(s) (-56) 2-4 Lesions - Due to the at risk nature of the patients medical condition as documented in the exam findings, performance of this keratoderma treatment is medically necessary as its management by an unskilled/untrained nonprofessional would put this patients foot and overall health at risk. Therefore, the benign hyperkeratotic lesions, ( 2 ) in total, locations as stated and described in the exam ( plantar heels B/L, ), were pared, and/or cut utilizing a sterile 15 blade, tissue nippers, and/or power dremel instrumentation by the physician of record - 58657, Q8 Progress Notes * Shelli VALENZUELA RDOB:1950 (74 yo F)Acc No.[id number]:08/11/2024 Progress Note Patient:?Shelli VALENZUELA Provider:?Nisha Medley DPM :1950???Age:74 Y???Sex:Female D ate:08/11/2024 Address:[address] [place], [place] [address] Pcp:Arnulfo Woodward MD Subjective: * Chief Complaints: * ???Skin problem(s)At Risk Fo otcarePainful Nail(s) aggravated by shoes and causing difficulty standing/walking.Wart(s) * HPI: ???At Risk footcare:?Pt States Last PCP Visit:?Date?04/06/2024 ???Skin problems:?Pt States PCP Visit: ?DATE?04/06/2024 ?Nature:?dryness , scaling.?Location:?B/L .?Course:?improved.?Treatments:?medication ( AM Lactin ).? * ROS:?General/Constitutional:?Nausea?denies.?Vomiting?denies.?Hunger Thirst?denies.?Loss appetite?denies.?Chills?denies.?Fatigue?denies.?Fever?denies.?Night Sweats?denies.?Unexplained weight loss?denies.?Unexplained [...] tobacco user??No ?Tobacco Control (Standard)?Tobacco use:?Current smoker ?When did you start smoking??07/27/1984 ?How often do you smoke cigarettes??Every day ?How many cigarettes a day do you smoke??6-10 ?How soon after you wake up do you smoke your first cigarette??6-30 minutes ?Are you interested in quitting??Thinking about quitting ?Additional Findings: Tobacco user?Moderate cigarette smoker (10-19 cigs/day) ???Drugs/Alcohol:?Drugs?Have you used drugs other than those for medical reasons in the past 12 months??No ???Miscellaneous:?Caffeine: yes, frequency:. ?Children: yes, 3. ?Exercise: no. ?Marital status: . ???Drug/Alcohol:?AUDIT-C (Standard)?Did you have a drink containing alcohol in the past year??No ?Points?0 ?Interpretation?Negative * Medications:?TakingVitamin D 3 Vitamin B12 Magnesium Levothyroxine Sodium Ammonium Lactate 12 % Cream 1 application Externally to affected areas of dry skin to feet except for between the toes Twice a day Taking Vitamin D3 Taking Vitamin B12 Taking Magnesium Taking Levothyroxine Sodium Taking Ammonium Lactate 12 % Cream 1 application Externally to affected areas of dry skin to feet except for between the toes Twice a day Not-Taking/PRNOmeprazole Lisinopril Medication List reviewed and reconciled with the patientNot-Taking/PRN Omeprazole Not-Taking/PRN Lisinopril Medication List reviewed and reconciled with the patient * Allergies:?Bactrimyes[Allerg ies Verified] Objective: * Vitals:?Ht:5ft 6inch, Wt:110 , BMI:17.75, Shoe size:7, BP:120/80mm Hg, Ht-cm: 167.64 cm, Wt-k.9 kg. * Examination: ???Dermatologic: ?SKIN FINDINGS:?Skin shows approximately 75? percent LESS, sign(s) of, dryness, scaling, in a stocking fashion, no fissure(s) present, B/L , Skin exam reveals Keratotic lesion(s) located at plantar heels B/L.?VERRUCA:?Reveals Multiple ( 2), multi-loculated , mosaic-patterned, round, raised, flat-topped, petechial bleeding papule(s), with cauliflower appearance and interruption of skin lines, with pain to lateral compression, and size estimated at 5mm diameter, plantar Forefoot, B/L.?Vascular: ?DP PULSES (B):? 0/4, B/L.?PT PULSES [...] Assessment: * Assessment: 1.?Xerosis of skin - L85.3 ( Primary)???Specify :Acute problem, Uncomplicated (3),Rx Management (4)???2.?Atherosclerosis of clark[place] point artery of both lower extremities, with unspecified presence of clinical manifestation - I70.203???Notes :Q7(A), Q8(2B), Q9(1B,2C)???3.?Tinea unguium - B35.1???4.?Pain in right toe(s) - M79.674???5.?Pain in left toe(s) - M79.675???6.?Right foot pain - M79.671???7.?Plantar wart - B07.0???8.?Left foot pain - M79.672??? Plan: * Treatment: * Procedures:?Debride Nail 6-10:?Nail debridement?Due to the [...] use of a nail nipper and/or dremel-type diamond grinder, to a more viable healthy nail [...] to maintain effectiveness in symptomatic relief - 54596.?Keratoma Treatment:?Parring or Cutting of Benign Hyperkeratotic Lesion(s)?(-56) 2-4 Lesions - Due to the at risk nature of the patients medical condition as documented in the exam findings, performance of this keratoderma treatment is medically necessary as its management by an unskilled/untrained nonprofessional would put this patients foot and overall health at risk. Therefore, the benign hyperkeratotic lesions, ( 2 ) in total, locations as stated and described in the exam ( plantar heels B/L,? ), were pared, and/or cut utilizing a sterile 15 blade, tissue nippers, and/or power dremel instrumentation by the physician of record - 10836, Q8.?Wart Treatment:?Procedure?Verruca, as described in exam, were debrided to pin-point bleeding margins with sterile 15 surgical blade, silver nitrate chemocautery applied, recomm. immune-boosting meds such as zinc, recomm. follow up with topical chemosurgical agents, Pt defers any other forms of tx - 05400.? * Procedure Codes:?66187 Wart Destruction, 1-14, Modifiers: XS 31250 DEBRIDE NAIL, 6 OR MORE, Modifiers: XS 89755 TRIM SKIN LESIONS, 2 TO 4, Modifiers: XS , Q8 * Preventive Medicine:? ??Counseling:?Tobacco use:?Type of Tobacco Use Cessation Counseling provided?Smoking effects education ?Patient counseled on the dangers of smoking and urged to quit:?08/11/2024 ?Discussion:?-13: Office or other outpatient visit for the evaluation and management of an established patient, which required a medically appropriate history [...] have encouraged the patient to call the office, .?Xerosis:?Given recent successful results to treatment, The patient is to cont the rx cream as directed.? ??Screening/Special Tests:?Fall Risk?Screening:?No falls in the past year ?FALLS: Screening for Future Fall Risk?Have you had any falls with injury in the past year??No * Follow Up:?2 Months * Images: * Sign off status: Completed true * Provider:?Nisha Medley DPM Date:? Generated for Gertrudis ross/Monet/Jimy on:?08/11/2024 04:09 PM EDT History and Physical Notes * HPI (History of Present Illness) Category Sub-Category Detail Notes Category Not es Skin problems Nature: dryness , scaling Location: B/L Course: improved Treatments: medication ( AM Lact in ) Pt States PCP Visit: DATE: 04/06/2024 At Risk footcare Pt States Last PCP Visit: Date: Examination Category Sub-Category Detail Notes Category Not es Neurological SENSORY: Neurological exa m reveals intact sensorium, pain sensation normal, vibration sensation intact, pinprick sensation is normal in the lower extremities, Pt denies, anesthesia, burning, paresthesia, tingling, B/L Dermatologic SKIN FINDINGS: Skin shows appro ximately 75 percent LESS, sign(s) of, dryness, scaling, in a stocking fashion, no fissure(s) present, B/L , Skin exam reveals Keratotic lesion(s) located at plantar heels B/L VERRUCA: Reveals Multiple ( 2 ), multi-loculated , mosaic-patterned, round, raised, flat-topped, petechial bleeding papule(s), with cauliflower appearance and interruption of skin lines, with pain to lateral compression, and size estimated at 5mm diameter, plantar Forefoot, B/L Orthopedic MUSCLE STRENGTH: 5/5 all groups in a symm etrical fashion, B/L General Examination GENERAL APPEARANCE: Reveals [...]
== END 2024-08-11 13:45 | disposition home or self-care (01) ==
LOC: HO.RESP 13:44
PROVIDERS: PCP Physician Assistant Surgical; Visit Provider Internal Medicine Pulmonary Disease
DX: J44.9 Chronic obstructive pulmonary disease, unspecified (principal)
CPT/HCPCS: 94010; 94640; 94727; 94729

== ENCOUNTER → 2024-08-11 13:47 | Outpatient (BNV) | payer MEDICARE, MEDICAID, SELFPAY | PROVIDERS: PCP Physician Assistant Surgical; Visit Provider Internal Medicine Pulmonary Disease | DX: J44.9 Chronic obstructive pulmonary disease, unspecified (principal) | CPT/HCPCS: 94060; 94727; 94729 ==

== ENCOUNTER 2024-08-19 13:47 | Outpatient (AMB) | payer MEDICARE, MEDICAID, SELFPAY ==
[2024-08-19 13:58] VITALS: BP 100/60; PULSE 78; O2SAT 98; BMI 17.8
--- NOTE | 2024-08-19 13:58 | MHC.OFFVIS ---
Vital Signs 08/19/24 13:58 Height 5 ft 6 in Weight 110 lb 3.698 oz BMI 17.8 BP 100/60 Blood Pressure Location Rt brachial Position Sitting Pulse 78 Pulse Source Doppler Pulse Oximetry (%) 98 Oxygen Delivery Method Room Air Intake Visit Reasons: COPD/ PFT FU Allergies Sulfa (Sulfonamide Antibiotics) [SULFA (SULFONAMIDE ANTIBIOTICS)] Allergy (Severe, Verified 08/19/24 14:02) ANAPHYLAXIS HPI HPI COPD/ PFT FU: Details: 74-year-old lady, active 25+ pack-year smoker followed for COPD, without COPD. Patient has been using albuterol MDI as needed with good control of his symptoms. She denies recent exacerbations. She has completed her pulmonary function test. [facility] Medical History COPD (chronic obstructive pulmonary disease) Anxiety Personal history of COVID-19 Cataract Smoker Back pain Arthritis Hypothyroidism HTN (hypertension) GERD (gastroesophageal reflux disease) PONV (postoperative nausea and vomiting) Surgical History Hx of cerebral aneurysm repair History of lumpectomy of right breast History of esophagogastroduodenoscopy (EGD) Hx of colonoscopy Hx of cholecystectomy Social History Housing Other:: mobile home Are you a primary rn complex care to a significant other at home: No Do you presently have visiting nurse or other home services: No Patient Tobacco Use Status: Current everyday Tobacco user Tobacco use type: Cigarette Cigarettes Per Day: 10 Years Smoked: 50+, started at 10 years old Review of Systems Const Denies daytime sleepiness, Denies excessive sweating, Denies fatigue, Denies fever(s), Denies lethargy, Denies malaise, Denies night sweats, Denies snoring and Denies weight loss Eyes Denies blurry vision and Denies itchy eyes ENT Denies nasal congestion, Denies post nasal drip, Denies sinus pain, Denies sinus pressure and Denies other ( Thrush) Card Denies chest pain, Denies pedal edema, Denies dyspnea, Denies orthopnea and Denies paroxysmal nocturnal dyspnea Resp Denies cough, Denies hemoptysis, Denies excessive phlegm production, Denies dyspnea, Denies snoring and Denies wheezing GI Denies abdominal pain and Denies heartburn Musc Denies myalgias, Denies arthralgias and Denies joint swelling Skin/Breast Denies rash Neuro Denies memory loss and Denies seizure-like activity Psych Denies abnormal sleep pattern, Denies anxiety and Denies memory loss Endo Denies excessive sweating, Denies fatigue and Denies heat intolerance Jeanmarie/Lymph Denies easy bruising Aller/Immun Denies itchy eyes, Denies seasonal rhinorrhea and Denies wheezing Physical Exam Vital Signs: Last Vital Signs Pulse 78 08/19/24 13:58 BP 100/60 08/19/24 13:58 Pulse Ox 98 08/19/24 13:58 Oxygen Delivery Method Room Air 08/19/24 13:58 BMI result Body Mass Index 17.8 Const General: no acute distress and alert Nutritional Appearance: not obese Orientation/consciousness: Other orientation findings ( oriented) HEENT Head: Yes atraumatic Eyes General: appearance normal, both eyes and all related structures Sclerae: sclerae normal EOM: EOMs intact bilaterally Neck Neck: Yes supple Lymphatic: no lymphadenopathy noted Resp Effort & Inspection: normal respiratory effort and no use of accessory muscles Auscultation: clear to auscultation bilaterally Cardio Rate: regular rate Rhythm: regular rhythm Heart sounds: no gallops, no murmurs and no rubs Skin General skin exam: other ( warm) Extrem General: No clubbing, No cyanosis and No edema Assessment & Plan Assessment & Plan (1) COPD (chronic obstructive pulmonary disease): Code(s): J44.9 - Chronic obstructive pulmonary disease, unspecified Category: Medical Plan: Results of pulmonary function test reviewed, emphysema without fixed obstruction well controlled on as needed albuterol MDI. Continue current regimen. (2) Personal history of nicotine dependence: Code(s): Z87.891 - Personal history of nicotine dependence Category: Medical Plan: Lung cancer screening CT chest is pending. Orders: Orders CT lung screening Today Z87.891 - Personal history of nicotine dependence Coding Level of Care Code Est Pt Level 4 (65445) Diagnoses COPD (chronic obstructive pulmonary disease) J44.9 Personal history of nicotine dependence Z87.891
--- OUTSIDE RECORDS SUMMARY | 2024-08-19 17:14 | XMS_ITS | Encounter Summary ---
Author Organization [facility], Address [address] [place] [address] Phone Care Team Providers Care Employee Relations Consultant Name Role Phone Bob Chavez PA-C Primary Care Provider Encounter Details Date Type Department Care Team (Late st Contact Info) Description 05/12/2024 Documentation Only [facility], [address] [place] [address] [place], [place] [address] [place] [address] Social History Tobacco Use Types [...] on filedocumented in this encounter Care Teams Employee Relations Consultant Relationship Specialty Start Date End Date Bob Chavez PA-C [address] [place] [address] PCP - General 04/26/24 documented as of this encounter
--- OUTSIDE RECORDS SUMMARY | 2024-08-19 17:14 | XMS_ITS | Data Portability ---
Author Organization [facility], [place], [facility] Address [address] [place] [address] Assessment No assessment recorded. Plan of Treatment [...] Renée - Colonoscopy completed Justen Chinchilla MD [address] [place] [address], [phone], [facility] 05/21/2024 10:39:33 Imaging Results None recorded. Procedure Notes None recorded. Medical Equipment None Reported. Allergies Allergen ID Allergen Name Allergen Category Reaction Reaction Severity Criticality Documentation Date Start Date Code Code System Note Provider Name and Address Organization Details Recorded Time 498373 Substance with sulfonami de structure and antibacte rial mechanism of action (substanc e) medicatio n dyspnea Not available Not available 05/13/2024 98147 8003 SNOMED Coco Corral RN [facility], [facility] 4 15:16:29 Medications Name Sig Start Date [...] SNOMED-CT Code Diagnosis ICD10 Code Diagnosis Note [id number] Edwar Mcginnis RN Endoscopy , [address] [address] 05/21/2024 09:09:09 05/21/2024 12:45:39 Health Concerns Section Related Observation LastModified by Organization Detai ls LastModified Time None Recorded Concern Status LastModified by Organization Details LastModified Time None Recorded Advance Directives Directive None Recorded Payers Encounter Date Sequence Insurance Name Policy Number Policy Crespo Covered Member ID Crespo Member ID Guarantor Name 05/21/2024 1 [facility] - MEDICARE PREFERRED (MEDICARE REPLACEMENT HMO) [facility] Shelli Valenzuela [id number] Shelli Valenzuela 05/21/2024 1 [place]: [employer] Shelli Valenzuela [id number] Shelli Valenzuela OBGyn Episode No OBEpisode recorded.
--- OUTSIDE RECORDS SUMMARY | 2024-08-19 17:14 | XMS_ITS | Clinical Summary ---
Author Organization [facility], Address [address] [place] [address] [place] [address] Phone Care Team Providers Care Line Construction Superintendent Name Role Phone Bob Chavez PA-C Primary Care Provider [phone] Medications acetaminophen (TYLENOL) 500 MG tablet Take [...] this topic Insurance [employer] Care Teams Line Construction Superintendent Relationship Specialty Start Date End Date Bob Chavez PA-C [address] [place] [address] PCP - General 04/26/24
--- OUTSIDE RECORDS SUMMARY | 2024-08-19 17:14 | XMS_ITS ---
Author Organization [facility] [place] Address [address] [facility] [place] [address] Care Team Providers Care In Store Banker Name Role Phone Arnulfo Woodward MD Primary Care Provider UnavailDulce Niño Unavailable [phone] Nisha Medley Unavailable [phone] Allergies Allergen (clinical drug ingredient) Drug/Non Drug [...] W/U Status Risk Notes Problem Plantar wart (31996240) Plantar wart (B07.0) Active confirmed Vital Signs Height 5ft 6inch in 08/11/2024 Weight 110 lbs 08/11/2024 BMI 17.75 kg/m2 08/11/2024 Blood pressure systolic 120 mm Hg 08/12/19 25 Blood pressure diastolic 80 mm Hg 025 Encounters Encounter Location Date Provider Diagnosis [facility] [place] [address] [place] [address] 08/11/2024 Nisha Galindo Xerosis of skin L85. 3 ; Atherosclerosis of [place] artery of both lower extremities, with unspecified [...] skin (ICD-10 - L85.3) 08/11/2024 Atherosclerosis of [place] artery of both lower extremities, with unspecified [...] Reason: Provider Name:Dulce winston, 10/13/2024 09:00:00 AM, [address] [place] [address], [phone], Provider Name:Dulce winston, 12/15/2024 09:00:00 AM, [address] [place] [address], [phone], Procedure Notes * Category Sub-Category Detail Notes Wart Treatment Procedure Verruca, as desc ribed in exam, were debrided to pin-point bleeding margins with sterile 15 surgical blade, silver nitrate chemocautery applied, recomm. immune-boosting meds such as zinc, recomm. follow up with topical chemosurgical agents, Pt defers any other forms of tx - 24088 Debride Nail 6-10 Nail debridement Due to [...] use of a nail nipper and/or dremel-type edge grinder, to a more viable healthy nail [...] to maintain effectiveness in symptomatic relief - 62859 Keratoma Treatment Parring or Cutting o f [...] instrumentation by the physician of record - 55025, Q8 Progress Notes * Shelli VALENZUELA RDOB:1950 (74 yo F)Acc No.[id number]:08/11/2024 Progress Note Patient:?Shelli VALENZUELA Provider:?Nisha Medley DPM :1950???Age:74 Y???Sex:Female D ate:08/11/2024 Address:[address] [place], [place] [address] Pcp:Arnulfo Woodward MD Subjective: * Chief Complaints: [...] :Acute problem, Uncomplicated (3),Rx Management (4)???2.?Atherosclerosis of [place] artery of both lower extremities, with unspecified [...] use of a nail nipper and/or dremel-type edge grinder, to a more viable healthy nail [...] to maintain effectiveness in symptomatic relief - 85979.?Keratoma Treatment:?Parring or Cutting of Benign Hyperkeratotic Lesion(s)?(-56) [...] instrumentation by the physician of record - 49953, Q8.?Wart Treatment:?Procedure?Verruca, as described in exam, were debrided to pin-point bleeding margins with sterile 15 surgical blade, silver nitrate chemocautery applied, recomm. immune-boosting meds such as zinc, recomm. follow up with topical chemosurgical agents, Pt defers any other forms of tx - 86937.? * Procedure Codes:?17503 Wart Destruction, 1-14, Modifiers: XS 68305 DEBRIDE NAIL, 6 OR MORE, Modifiers: XS 08308 TRIM SKIN LESIONS, 2 TO 4, Modifiers: [...] Medley DPM Date:? Generated for Gertrudis ross/Monet/Jimy on:?08/19/2024 05:14 PM EDT History and Physical Notes * [...]
--- OUTSIDE RECORDS SUMMARY | 2024-08-19 17:14 | XMS_ITS ---
Author Organization [facility] [place] Address [address] [place] [address] Care Team Providers Care Supervisor Mattress And Boxsprings Name Role Phone Arnulfo Woodward MD Primary Care Provider Dulce Marroquin Unavailable [phone] Allergies Allergen (clinical drug ingredient) Drug/Non Drug [...] Bilateral atherosclerosis of arteries of lower limbs ([id number] ) Atherosclerosis of [place] artery of both lower extremities, with unspecified presence of clinical manifestation (I70.203) Active confirmed Q7(A), Q8(2B), Q9(1B,2 C) Vital Signs Height 5ft 4inch in 06/09/2024 Weight 108 lbs 06/09/2024 BMI 18.54 kg/m2 06/09/2024 Blood pressure systolic 120 mm Hg 06/09/19 Blood pressure diastolic 80 mm Hg 025 Procedures Procedure Date Ordered Date Performed Result Body Sit e 87927-BMVGDHJ NAIL, 6 OR MORE 06/09/2024 N/A 00489-KMRA SKIN LESIONS, 2 TO 4 06/09/2024 N/A Encounters Encounter Location Date Provider Diagnosis [facility] [place] [address] [place] [address] 06/09/2024 Dulce Lechuga Xerosis of skin L85.3 ; Atherosclerosis of upper [place] artery of both lower extremities, with unspecified presence of clinical manifestation I70.203 ; Tinea unguium B35.1 ; Pain in right toe(s) M79.674 and Pain in left toe(s) M79.675 Assessments Encounter Date Diagnosis (ICD Code) Assessment Notes Treatment Notes Treatment Clinical Notes Section Notes 06/09/2024 Xerosis of skin (ICD-10 - L85.3) 06/09/2024 Atherosclerosis of upper [place] artery of both lower extremities, with unspecified [...] days Pending Test Test Name Order Date 42841-WJIMJGA NAIL, 6 OR MORE 06/09/2024 81924-EJMS SKIN LESIONS, 2 TO 4 06/09/19 25 Next Appt Details Follow Up: 3 Months, Reason: Provider Name:Dulce winston, 10/13/2024 09:00:00 AM, [address] [place] [address], [phone], Provider Name:Dulce Vieira catrachito, 12/15/2024 09:00:00 AM, [address] [place] [address], [phone], Procedure Notes * Category Sub-Category Detail Notes [...] use of a nail nipper and/or dremel-type internal grinder tender, to a more viable healthy nail plate [...] to maintain effectiveness in symptomatic relief - 64532 Keratoma Treatment Parring or Cutting o f [...] instrumentation by the physician of record - 94500, Q8 Progress Notes * Shelli VALENZUELA RDOB:1950 (73 yo F)Acc No.[id number]:06/09/2024 Progress Notes Patient:?Shelli VALENZUELA Provider:?Dulce Lechuga DPM :1950???Age:73 Y???Sex:Female D ate:06/09/2024 Address:[address] [place] [address] Pcp:Arnulfo Woodward MD Subjective: * Chief Complaints: [...] :Acute problem, Uncomplicated (3),Rx Management (4)???2.?Atherosclerosis of upper [place] artery of both lower extremities, with unspecified [...] 30 days, 280, Refills 3.?? 3.?Tinea unguium?Procedure: 64543-KVOLUAJ NAIL, 6 OR MORE * Procedures:?Debride Nail [...] use of a nail nipper and/or dremel-type internal grinder tender, to a more viable healthy nail plate [...] to maintain effectiveness in symptomatic relief - 21247.?Keratoma Treatment:?Parring or Cutting of Benign Hyperkeratotic Lesion(s)?(-56) [...] instrumentation by the physician of record - 00913, Q8.? * Procedure Codes:?82677 DEBRI DE NAIL, 6 OR MORE, Modifiers: XS 61645 TRIM SKIN LESIONS, 2 TO 4, Modifiers: [...] DPM Date:?0 06/09/2024 Generated for Gertrudis ross/Monet/Anahismitting on:?08/19/2024 05:14 PM EDT History and Physical [...]
--- OUTSIDE RECORDS SUMMARY | 2024-08-19 17:15 | XMS_ITS | Clinical Summary ---
Author Organization [employer] Address [address] [place] [address] [address] [place] [address] Care Team Providers Care Product Manager Financial Services Name Role Phone Unavailable Primary Care Provider [...]
--- OUTSIDE RECORDS SUMMARY | 2024-08-19 17:15 | XMS_ITS | Encounter Summary ---
Author Organization [facility], Address [address] [place] [address] Phone Care Team Providers Care Legal Advisor Name Role Phone Bob Chavez PA-C Primary Care Provider [phone] Encounter Details Date Type Department Care Team (Late st Contact Info) Description 04/26/2024 Documentation Only [facility], [address] [place] [address] José Walker[place], [place] [address] [place] [address] Social History Tobacco Use Types [...] on filedocumented in this encounter Care Teams Legal Advisor Relationship Specialty Start Date End Date Bob Chavez PA-C [address] [place] [address] PCP - General 04/26/24 documented as of this encounter
--- OUTSIDE RECORDS SUMMARY | 2024-08-19 17:15 | XMS_ITS | Patient Health Record ---
Author Organization [facility] Address [address] [place] [address] Care Team Providers Care Trashman Name Role Phone Arnulfo Woodward MD Primary Care Provider Dulce Marroquin Unavailable [phone] Nisha Medley Unavailable [phone] Allergies Allergen (clinical drug ingredient) Drug/Non Drug Allergy documented on EMR Reaction Allergy Type Onset Date Status sulfamethoxazole / trimethoprim Bactrim Unknown Drug Allergy Active Reason For Referral Diagnosis 1 Pain in unspecified foot (M79.673) Referring Provider First Name Arnulfo Referring Provider Last Name Trace [facility]erred Provider Dulce Lechuga Referred Address [address] [place], [place],[address],[place] Referred Provider Specialty Podiatry Referral Priority Routine Diagnosis 1 Atherosclerosis of n [place] artery of both lower extremities, with unspecified presence of clinical manifestation (I70.203) Diagnosis 2 Pain in left toe(s) (M79.675) Diagnosis 3 Pain in right toe(s) (M79.674) Diagnosis 4 Tinea unguium (B35.1 ) Diagnosis 5 Xerosis of skin (L85 .3) Referring Provider First Name Arnulfo Referring Provider Last Name Trace Referred [facility] Referred Provider Nisha Medley Referred Address [address] [place], [place],[address],[place] Referred Provider Specialty Podiatry Referral Priority Routine [...] W/U Status Risk Notes Problem Plantar wart (54653718) Plantar wart (B07.0) Active confirmed Problem Bilateral atherosclerosis of arteries of lower limbs (04047233792702732 ) Atherosclerosis of [place] artery of both lower extremities, with unspecified presence of clinical manifestation (I70.203) Active confirmed Q7(A), Q8(2B), Q9(1B,2 C) Vital Signs Blood pressure diastolic 80 mm Hg 08/11/2024 Height 5ft 6inch in 08/11/2024 Blood pressure systolic 120 mm Hg 08/11/2024 Weight 110 lbs 08/11/2024 BMI 17.75 kg/m2 08/11/2024 Procedures Procedure Date Ordered Date Performed Result Body Sit e 81911-WYQBCYZ NAIL, 6 OR MORE 06/09/2024 N/A 58099-KKGB SKIN LESIONS, 2 TO 4 06/09/2024 N/A Encounters Encounter Location Date Provider Diagnosis [facility] [place] [address] [place] [address] 06/09/2024 Dulce Lechuga Xerosis of skin L85.3 ; Atherosclerosis of [place] artery of both lower extremities, with unspecified presence of clinical manifestation I70.203 ; Tinea unguium B35.1 ; Pain in right toe(s) M79.674 and Pain in left toe(s) M79.[address] [address] 08/11/2024 Nisha Medley Xerosis of skin L85. 3 ; Atherosclerosis of [place] artery of both lower extremities, with unspecified presence of clinical manifestation I70.203 ; Tinea unguium B35.1 ; Pain in right toe(s) M79.674 ; Pain in left toe(s) M79.675 ; Right foot pain M79.671 ; Plantar wart B07.0 and Left foot pain M79.[address] [address] 04/15/2024 Dulce Lechuga Assessments Encounter Date Diagnosis (ICD Code) Assessment Notes Treatment Notes Treatment Clinical Notes Section Notes 06/09/2024 Xerosis of skin (ICD-10 - L85.3) 08/11/2024 Xerosis of skin (ICD-10 - L85.3) 08/11/2024 Atherosclerosis of [place] artery of both lower extremities, with unspecified presence of clinical manifestation (ICD-10 - I70.203) Q7(A), Q8(2B), Q9(1B,2C) 06/09/2024 Atherosclerosis of [place] artery of both lower extremities, with unspecified [...] Treatment Pending Test Test Name Order Date 49664-TCDSSHS NAIL, 6 OR MORE 06/09/2024 48664-RBIW SKIN LESIONS, 2 TO 4 06/09/19 25 Next Appt Details Provider Name:Dulce winston, 10/13/2024 09:00:00 AM, [address] [place] [address], [phone], Provider Name:Dulce winston, 12/15/2024 09:00:00 AM, [address] [place] [address], [phone], Insurance Providers Payer Name Payer Address Payer Phone Subscriber Number Group Number Insured Name Patient Relationship to Insured Coverage Start Date Coverage End Date [employer] Preferred [address] [place] [address] [phone] [id number] Shelli Valenzuela Self - patient is the insured 4 Medical (General) History Medical History History ICD Code High Blood Pressure thyroid
--- OUTSIDE RECORDS SUMMARY | 2024-08-19 17:15 | XMS_ITS ---
Author Organization [facility] Address [address] [place] [address] Care Team Providers Care Head Of Sales Name Role Phone Arnulfo Woodward MD Primary Care Provider Dulce Marroquin [phone] REASON FOR VISIT [employer]LECT[employer]SEMBLER PPWK Entered Encounters Encounter Location Date Provider Diagnosis [address] [address] 04/15/2024 Dulce Lechuga Plan Of Treatment Next Appt Details Provider Name:Dulce winston, 10/13/2024 09:00:00 AM, [address] [place] [address], [phone], Provider Name:Dulce winston, 12/15/2024 09:00:00 AM, [address] [place] [address], [phone], Progress Notes * Shelli VALENZUELA RDOB:1950 (73 yo F)Acc No.[id number]:04/15/2024 Patient:?Shelli VALENZUELA :1950???Age:73 Y???Sex:Female Address:[address] [place] [address] * true * Date:? Generated for Printi ng/Faxing/eTransmitting on:?08/19/2024 05:14 PM EDT
--- OUTSIDE RECORDS SUMMARY | 2024-08-19 17:15 | XMS_ITS | Encounter Summary ---
Author Organization [facility] Address [address] [facility] 7t [place] [address] Care Team Providers Care Mill And Coal Transport Operator Name Role Phone Unavailable Primary Care Provider [...]
== END 2024-08-19 14:26 | disposition home or self-care (01) ==
LOC: HO.HPS 13:47
PROVIDERS: PCP Physician Assistant Surgical; Visit Provider Internal Medicine Pulmonary Disease
DX: J44.9 Chronic obstructive pulmonary disease, unspecified (principal); Z87.891 Personal history of nicotine dependence
CPT/HCPCS: 99214

== ENCOUNTER → 2024-08-19 13:47 | Outpatient (BNVA) | payer MEDICARE, MEDICAID, SELFPAY | PROVIDERS: PCP Physician Assistant Surgical; Visit Provider Internal Medicine Pulmonary Disease | DX: J44.9 Chronic obstructive pulmonary disease, unspecified (principal); F17.210 Nicotine dependence, cigarettes, uncomplicated | CPT/HCPCS: 99212 ==

== ENCOUNTER 2024-10-29 15:46 | Outpatient (REF) | payer MEDICARE, MEDICAID, SELFPAY ==
--- NOTE | ~2024-10-29 | CT_ITS ---
CLINICAL HISTORY: Z87.891 - Personal history of nicotine dependence CT lung cancer screening (LDCT) Comparison: None Technique: Axial CT images of the chest using low-dose technique. Referring provider counseled the patient on shared decision-making for LDCT screening. Additional counseling was provided on smoking cessation. Effective radiation dose total: DLP 31.6 mGycm, CTDIvol 0.9 mGy. Findings: Lung: Mild apical predominant emphysema. Mild scarring within the left anterior lung base. No evidence of pneumonia or edema. No suspicious pulmonary nodules. There is mild fusiform dilatation of the ascending thoracic aorta measuring 43 mm. Coronary artery calcifications: Moderate Limited upper abdomen: Unremarkable Other: None Impression: 1. Coronary artery disease. 2. Mild dilatation of the ascending thoracic aorta. 3. LungRADS 1: Negative exam. Continue annual screening with low dose Chest CT in 12 months. ##L1## Category 1: Normal; continue annual screening Category 2: Benign appearance or behavior, continue annual screening Category 3: Probably benign, [address] recommended Category 4A: Suspicious, [address] recommended; may consider PET/CT Category 4B: Suspicious, Additional diagnostics and/or tissue sampling recommended Category 4X: Suspicious, Additional diagnostics and/or tissue sampling recommended Category 0: Recalls (incomplete screen due to Incomplete coverage, Noise, Respiratory motion, Expiration, Obscured by acute abnormality) This document has been electronically signed by: Adrian Landry MD on 11/01/2024 14:18:30
--- OUTSIDE RECORDS SUMMARY | 2024-10-29 15:48 | XMS_ITS | Data Portability ---
Author Organization [facility], [facility], [facility] Address [address] [place] [address] Assessment No assessment recorded. Plan of Treatment [...] Renée - Colonoscopy completed Justen Chinchilla MD [address] [place] [address], [phone], [facility] 05/21/2024 10:39:33 Imaging Results None recorded. Procedure Notes None recorded. Medical Equipment None Reported. Allergies Allergen ID Allergen Name Allergen Category Reaction Reaction Severity Criticality Documentation Date Start Date Code Code System Note Provider Name and Address Organization Details Recorded Time 350376 Substance with sulfonami de structure and antibacte rial mechanism of action (substanc e) medicatio n dyspnea Not available Not available 05/13/2024 22937 8003 SNOMED Coco Corrla RN [place], [facility] 4 15:16:29 Medications Name Sig Start Date [...] SNOMED-CT Code Diagnosis ICD10 Code Diagnosis Note [id number] Justen Chinchilla MD Endoscopy , [address] [address] 05/21/2024 09:09:09 05/21/2024 12:45:39 Health Concerns Section Related Observation LastModified by Organization Detai ls LastModified Time None Recorded Concern Status LastModified by Organization Details LastModified Time None Recorded Advance Directives Directive None Recorded Payers Encounter Date Sequence Insurance Name Policy Number Policy Crespo Covered Member ID Crespo Member ID Guarantor Name 05/21/2024 1 [facility] - MEDICARE PREFERRED (MEDICARE REPLACEMENT HMO) [facility] [id number] 1 Shelli Valenzuela 05/21/2024 1 [place] B-[place] [employer] Shelli Valenzuela [id number] Shelli Valenzuela OBGyn Episode No OBEpisode recorded.
== END 2024-10-29 15:47 | disposition home or self-care (01) ==
LOC: HO.CT 15:46
PROVIDERS: PCP Physician Assistant Surgical; Visit Provider Internal Medicine Pulmonary Disease
DX: Z12.2 Encounter for screening for malignant neoplasm of respiratory organs (principal); Z87.891 Personal history of nicotine dependence
CPT/HCPCS: 71271

== ENCOUNTER → 2024-10-29 15:47 | Outpatient (BNV) | payer MEDICARE, MEDICAID, SELFPAY | PROVIDERS: PCP Physician Assistant Surgical; Visit Provider Radiology Diagnostic Radiology | DX: Z12.2 Encounter for screening for malignant neoplasm of respiratory organs (principal); Z87.891 Personal history of nicotine dependence; I25.10 Atherosclerotic heart disease of native coronary artery without angina pectoris | CPT/HCPCS: 71271 ==

== ENCOUNTER → 2025-01-11 09:36 | Outpatient (REF) | payer MEDICARE, SELFPAY ==
--- NOTE | 2025-01-11 09:39 | CA_ITS ---
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 Normal LV ejection fraction of 65-70% with grade 1 diastolic dysfunction 2. Mild aortic regurgitation most likely due to ascending aortic pathology 3. Mildly dilated ascending aorta at 4.2 cm 4. Normal RV systolic pressure 5. No gross pericardial effusion Findings Left Ventricle Normal left ventricular size, thickness, and systolic function. The visually estimated ejection fraction is between 65-70%. Spectral Doppler is indicative of an impaired relaxation filling pattern. E/E prime ratio is <8, consistent with normal filling pressures. Evidence suggests grade I (mild) diastolic dysfunction. Right Ventricle Normal right ventricular cavity size and systolic function. Atria Both atria are normal in size. There is lipomatous hypertrophy of the interatrial septum. There is no evidence of interatrial shunt. Aortic Valve Normal aortic valve structure and function. There is no aortic valve stenosis. There is mild aortic valve regurgitation. Mitral Valve Normal mitral valve structure and function. There is trace mitral valve regurgitation. There is no mitral valve stenosis. Pulmonic Valve The pulmonic valve is likely normal. There is trace pulmonic valve regurgitation. Tricuspid Valve Normal tricuspid valve structure. There is mild tricuspid valve regurgitation. The right ventricular systolic pressure is 23 mmHg. Normal right atrial pressure. There is no evidence of pulmonary hypertension. Great Vessels The pulmonary artery was not well visualized. There is mild dilatation of the ascending aorta measuring 4.20 cm. Venous The inferior vena cava is normal in size and collapses greater than 50% with inspiration. Pericardium/Pleural There is no evidence of pericardial effusion. Prior Study Comparison No prior study available for comparison. Measurements 2D Linear Measurements IVSd: 1.24 0.6-0.9/0.6-1.0 cm LVIDd: 4.02 3.9-5.3/4.2-5.9 cm LVIDd Index: 2.59 2.4-3.2/2.2-3.1 cm/m2 LVIDs: 2.81 2.0-3.6 cm LVPWd: 0.70 0.7-1.1 cm LA Diam: 2.60 2.7-3.8/3.0-4.0 cm LAIDs Index: 1.68 1.5-2.3 cm/m2 LV Mass: 152.95 67-162/88-224 g LV Mass Index: 98.68 43-95/49-115 g/m2 LVOT Diam: 2.00 3.0+(-)1.3 cm 2D Systolic Function EF 4C: 66.00 >55% EF 2C: 67.90 >55% EF BiP: 66.10 >55% Mitral Valve MV Pk E: 0.58 MV PK A: 0.74 MV Decel Time: 245.00 E/A: 0.80 E'Lateral: 11.60 E'Medial: 6.64 E/E' Med: 8.80 E/E' Lat: 5.00 PHT: 72.00 MVA PHT: 3.06 Decel [place]: 2.38 Aortic Valve AoV Pk Shai: 1.42 AoV Mn Shai: 0.87 AoV VTI: 0.38 AoV Pk Grad: 8.00 Aov Mn Grad: 3.00 DOMENICO Cont.VTI: 2.67 AI Pk Shai: 4.00 AI [place]: 1.66 LVOT LVOT Pk Shai: 1.25 LVOT Mn Shai: 0.80 LVOT VTI: 0.32 LVOT Pk Grad: 6.00 LVOT Mn Grad: 3.00 LVOT Diam: 2.00 LVOT Area: 3.14 Diastolic Function MV Pk E: 0.58 MV Pk A: 0.74 E/A: 0.80 E'Medial: 6.64 E/E' Med: 8.80 E' Laterial: 11.60 E/E' Lat: 5.00 Right Ventricle TAPSE (mm): 18.40 TVS' Shai: 8.81 Tricuspid Valve TR Pk Shai: 2.23 TR Pk Grad: 20.00 RA Press: 3.00 RVSP: 23.00 Great Vessels Aorta Sinus of Valsalva: 4.10 2.0-3.5 cm Ao Asc: 4.20 2.1-3.4 cm Pulmonary Veins Pulm Vein S/D 1.80 Pulmonary Valve PV Pk Shai: 0.81 Peak PV Grad: 3.00 Updated in Other Vendor System with Status of Final Jaylen Greenberg MD electronically signed on 01/11/2025 4:08:00 PM with status of Final
--- OUTSIDE RECORDS SUMMARY | 2025-01-11 10:42 | XMS_ITS | Patient Health Record ---
Author Organization [facility] Address [address] [place] [address] Care Team Providers Care Science Technician Name Role Phone Arnulfo Woodward MD Primary Care Provider Dulce Marroquin Unavailable [phone] Nisha Medley Unavailable [phone] Allergies Allergen (clinical drug ingredient) Drug/Non Drug Allergy documented on EMR Reaction Allergy Type Onset Date Status sulfamethoxazole / trimethoprim Bactrim Unknown Drug Allergy Active Reason For Referral Diagnosis 1 Pain in unspecified foot (M79.673) Referring Provider First Name Arnulfo Referring Provider Last Name Trace [facility] Provider Dulce Lechuga Referred Address [address] [place], [place],[address],[place] Referred Provider Specialty Podiatry Referral Priority Routine Diagnosis 1 Atherosclerosis of n ative artery of both lower extremities, with unspecified presence of clinical manifestation (I70.203) Diagnosis 2 Pain in left toe(s) (M79.675) Diagnosis 3 Pain in right toe(s) (M79.674) Diagnosis 4 Tinea unguium (B35.1 ) Diagnosis 5 Xerosis of skin (L85 .3) Referring Provider First Name Arnulfo Referring Provider Last Name Trace Referred [facility] Referred Provider Nisha Medley Referred Address [address] [place], [place],[address],[place] Referred Provider Specialty Podiatry Referral Priority Routine Medications Medication SIG (Take, Route, Frequency, Duration) Notes Start Date End Date Status Vitamin D3 Active Vitamin B12 Active Magnesium Active Levothyroxine Sodium Active Ammonium Lactate 12 % 1 application Exte rnally to affected areas of dry skin to feet except for between the toes Twice a day; Duration: 30 days Active Omeprazole Not-Takin g Lisinopril Not-Takin g Immunizations Vaccine Route Administration Date Status Comme nts Influenza Unknown 01/26/2024 Administered Social History Tobacco Use: Social History Observation [...] W/U Status Risk Notes Problem Plantar wart (97515726) Plantar wart (B07.0) Active confirmed Problem Atherosclerosis of [place] artery of both lower extremities, with unspecified presence of clinical manifestation (I70.203) Active confirmed Q7(A), Q8(2B), Q9(1B,2C ) Vital Signs Blood pressure diastolic 65 mm Hg 12/15/2024 Height 5ft 6inch in 12/15/2024 Blood pressure systolic 126 mm Hg 12/15/2024 Weight 110 lbs 12/15/2024 BMI 17.75 kg/m2 12/15/2024 Procedures Procedure Date Ordered Date Performed Result Body Sit e 23518-CVDOILU NAIL, 6 OR MORE 06/09/2024 N/A 70827-CMWX SKIN LESIONS, 2 TO 4 06/09/2024 N/A 65734-Ehxu Destruction, 1-14 10/13/2024 N/A 74123-Mpdj Destruction, 1-14 12/15/2024 N/A Encounters Encounter Location Date Provider Diagnosis [facility] [address] [address] 06/09/2024 Dulce Lechuga Xerosis of skin L85.3 ; Atherosclerosis of [place] artery of both lower extremities, with unspecified presence of clinical manifestation I70.203 ; Tinea unguium B35.1 ; Pain in right toe(s) M79.674 and Pain in left toe(s) M79.[address] [address] 08/11/2024 Nisha Medley Xerosis of skin L85. 3 ; Atherosclerosis of [place] artery of both lower extremities, with unspecified presence of clinical manifestation I70.203 ; Tinea unguium B35.1 ; Pain in right toe(s) M79.674 ; Pain in left toe(s) M79.675 ; Right foot pain M79.671 ; Plantar wart B07.0 and Left foot pain M79.[address] [address] 10/13/2024 Dulce Lechuga Right foot pain M79.671 ; Plantar wart B07.0 ; Left foot pain M79.672 and Atherosclerosis of [place] artery of both lower extremities, with unspecified presence of clinical manifestation I70.[address] [address] 12/15/2024 Dulce Lechuga Right foot pain M79.671 ; Plantar wart B07.0 ; Left foot pain M79.672 and Atherosclerosis of [place] artery of both lower extremities, with unspecified presence of clinical manifestation I70.[address] [address] 04/15/2024 Dulce Lechuga Assessments Encounter Date Diagnosis (ICD Code) Assessment Notes Treatment Notes Treatment Clinical Notes Section Notes 06/09/2024 Xerosis of skin (ICD-10 - L85.3) 08/11/2024 Xerosis of skin (ICD-10 - L85.3) 08/11/2024 Atherosclerosis of [place] artery of both lower extremities, with unspecified presence of clinical manifestation (ICD-10 - I70.203) Q7(A), Q8(2B), Q9(1B,2C) 10/13/2024 Right foot pain (ICD-10 - M79.671) 12/15/2024 Right foot pain (ICD-10 - M79.671) 12/15/2024 Plantar wart (ICD-10 - B07.0) 10/13/2024 Plantar wart (ICD-10 - B07.0) 06/09/2024 Atherosclerosis of [place] artery of both lower extremities, with unspecified presence of clinical manifestation (ICD-10 - I70.203) Q7(A), Q8(2B), Q9(1B,2C) 08/11/2024 Tinea unguium (ICD-10 - B35.1) 08/11/2024 Pain in right toe(s) (ICD-10 - M79.674) 06/09/2024 Tinea unguium (ICD-10 - B35.1) 10/13/2024 Left foot pain (ICD-10 - M79.672) 12/15/2024 Left foot pain (ICD-10 - M79.672) 12/15/2024 Atherosclerosis of [place] artery of both lower extremities, with unspecified presence of clinical manifestation (ICD-10 - I70.203) Q7(A), Q8(2B), Q9(1B,2C) 10/13/2024 Atherosclerosis of [place] artery of both lower extremities, with unspecified presence of clinical manifestation (ICD-10 - I70.203) Q7(A), Q8(2B), Q9(1B,2C) 06/09/2024 Pain in right toe(s) (ICD-10 - M79.674) 08/11/2024 Pain in left toe(s) (ICD-10 - M79.675) 08/11/2024 Right foot pain (ICD-10 - M79.671) 06/09/2024 Pain in left toe(s) (ICD-10 - M79.675) 08/11/2024 Plantar wart (ICD-10 - B07.0) 08/11/2024 Left foot pain (ICD-10 - M79.672) Plan Of Treatment Pending Test Test Name Order Date [id number] NAIL, 6 OR MORE 06/09/2024 39587-Hudb Destruction, 1-14 10/13/2024 41968-Zpvf Destruction, 1-14 12/15/2024 61659-JOUA SKIN LESIONS, 2 TO 4 06/09/19 Next Appt Details Provider Name:Dulce Vieira catrachito, 02/16/2025 03:30:00 PM, [address] [place] [address], [phone], Provider Name:Dulce Vieira catrachito, 04/25/2025 09:00:00 AM, [address] [place] [address], [phone], Insurance Providers Payer Name Payer Address Payer Phone Subscriber Number Group Number Insured Name Patient Relationship to Insured Coverage Start Date Coverage End Date [employer] Preferred [address] [place] Past[place] [id number] [phone] [id number] Shelli Valenzuela Self - patient is the insured 4 Medical (General) History Medical History History ICD Code High Blood Pressure thyroid
--- OUTSIDE RECORDS SUMMARY | 2025-01-11 10:42 | XMS_ITS | Encounter Summary ---
Author Organization [employer] [facility] Address [address] [place] [address] Care Team Providers Care Conveyor Line Battery Charger Name Role Phone Unavailable Primary Care Provider [...]
--- OUTSIDE RECORDS SUMMARY | 2025-01-11 10:42 | XMS_ITS | Patient Health Record ---
Author Organization [facility] Address [address] [place] [address] Care Team Providers Care Dance Historian Name Role Phone Neal Metcalf Fortunato [phone] Reason For Referral No Information Plan Of Treatment No Information
== END ==
LOC: HO.CARD 09:36
PROVIDERS: PCP Physician Assistant Surgical; Visit Provider Physician Assistant Surgical
DX: R07.9 Chest pain, unspecified (principal)
CPT/HCPCS: 93306

== ENCOUNTER → 2025-01-11 09:39 | Outpatient (BNV) | payer MEDICARE, SELFPAY | PROVIDERS: PCP Physician Assistant Surgical; Visit Provider Internal Medicine Cardiovascular Disease | DX: I35.1 Nonrheumatic aortic (valve) insufficiency (principal); I51.89 Other ill-defined heart diseases | CPT/HCPCS: 93306 ==

== ENCOUNTER → 2025-01-18 08:57 | Outpatient (REF) | payer MEDICARE, SELFPAY ==
--- NOTE | 2025-01-18 09:00 | CA_ITS ---
Acquisition Time: 2025-01-18 09:09:49 Total Exercise Time: 00:05:01 Test Indications: CP Medications: ALBUTEROL INHALER MAGNESIUM LEVOTHYROXINE LORAZAPAM Protocol: JAZMIN Max HR: 136 BPM 93% of Pred: 146 BPM Max BP: 148/40 mmHG Max Work Load: 5.0 METS Exercise stress test with exercise 5 mins 1 sec of Jazmin Protocol, achieving 93% MPHR, with reports of mild SOB, no chest pain, with isolated PVCs, with normotensive response to exercise. Without any EKG changes meeting criteria for ischemia. In recovery, pt's breathing returned to baseline. Test reviewed with Dr. Rios. Referred By: Bob Chavez Electronically Signed By: Zhen Thornton
--- OUTSIDE RECORDS SUMMARY | 2025-01-18 09:16 | XMS_ITS | Clinical Summary ---
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 30 capsule 2 05/01/20 22 Active albuterol 90 mcg/actuation inhalerIndications :Subacute cough,COPD exacerbation Inhale 2 puffs into the lungs every 4 (four) hours as needed for wheezing. 8.5 g 1 07/29/19 24 Active acetaminophen (TYLENOL) 500 MG tablet take 1 tablet by mouth every 4 to 6 hours as needed 12/30/19 24 Active ibuprofen (ADVIL,MOTRIN) 600 MG tablet TAKE 1 TABLET 4 TIMES A DAY WITH MEALS NEEDED 12/30/19 24 Active cyanocobalamin, vitamin B-12, 1000 MCG tabletIndications: Vitamin B12 deficiency TAKE 1 TABLET BY MOUTH EVERY DAY 90 tablet 3 04/12/20 24 Active loperamide (IMODIUM) 2 mg capsule Take 2 mg by mouth as needed for diarrhea. Active levothyroxine (SYNTHROID, LEVOTHROID) 50 MCG tabletIndications: Acquired hypothyroidism TAKE 1 TABLET BY MOUTH DIRECTED. TAKE 50 MCG DAILY EXCEPT TAKE 75 MCG 2 DAYS A WEEK 112 tablet 3 10/08/19 25 Active calcium carbonate (OS-ADINA) 1,500 mg (600 mg elemental) tablet Take 600 mg by mouth daily. Active magnesium oxide (MAG-OX) 400 mg (241.3 mg elemental) tablet TAKE 2 TABLETS BY MOUTH DAILY. 180 tablet 3 01/04/20 25 Active LORazepam (ATIVAN) 0.5 MG tabletIndications: Anxiety TAKE 1 TABLET (0.5 MG TOTAL) BY MOUTH ONCE NEEDED FOR ANXIETY. 15 tablet 01/14/20 25 Active magnesium oxide (MAG-OX) 400 mg (241.3 mg elemental) tablet Take 2 tablets (800 mg total) by mouth daily. 60 tablet 2 10/07/19 25 025 Discontinued LORazepam (ATIVAN) 0.5 MG tabletIndications: Anxiety TAKE 1 TABLET (0.5 MG TOTAL) BY MOUTH ONCE NEEDED FOR ANXIETY. 15 tablet 12/14/19 25 025 Discontinued Active Problems Problem Noted Date Diagnosed Date Chest pain 12/07/2024 Assessment & Plan (12/07/2024 6:58 PM EDT): Patient mentions that she has been experiencing anterior chest pain which she describes as going across to her chest where she feels that something is exploding. She denies any shortness of breath dizziness lightheadedness or radiation of pain to the jaw or to the arm. However she does experience some radiation of pain to the back. She notes that it typically happens in the evening however it has woken her up in the middle the night and she attempts to breathe through it. Of note she does have a history of COPD and had undergone a CT chest back in April 2024 which showed pulmonary nodules and groundglass appearance however there was also noted moderate amount of coronary calcifications. Which in combined with her history of hypertension can put her at a higher risk for any cardiac events. Given her most recent increased stress with the loss of her and [id number] I have obtained an EKG which showed sinus bradycardia with a heart rate of 45. No ST-T wave abnormalities noted. - I will obtain an echocardiogram as it is not uncommon after losing loved ones to rule out Takotsubo -I will also obtain a cardiac stress test -Patient is advised to follow-up with her banking services advisor. Screening-pulmonary TB 06/02/2024 Calcification of coronary artery 06/02/2024 Hypomagnesemia 03/02/2024 Assessment & Plan (12/07/2024 6:51 PM EDT): Patient with a history of low magnesium level from unclear etiology. It was initially thought to be due to omeprazole and therefore she was discontinued off this medication and was seen by nephrology. Since then she has been discharged from nephrology. She remains on magnesium oxide 800 mg daily with her last magnesium level of 2.2. She does mention that she does have some side effects of the magnesium where she has a couple episodes of diarrhea in the morning however this does clear out throughout the day and is able to have regular bowel movements. We will continue her on magnesium oxide 800 mg daily. We will closely monitor her magnesium levels. Assessment & Plan (05/03/2024 10:09 AM EST): Patient's last magnesium level was 1.3 back on 04/23/2024 and she has been taking magnesium oxide 400 mg p.o. twice daily. She was recently seen by nephrology who took her off Prilosec which can lower magnesium levels and place her on Pepcid. She will continue magnesium oxide 400 mg p.o. twice daily and repeat magnesium levels weekly. Assessment & Plan (04/08/2024 5:17 PM EST): Await lab today. Continue current supplementation. Continue adequate fluids, can add [id number] fiber into diet and/or add Colace if any constipation. Referring to nephrology for workup of chronic hypomagnesemia. Assessment & Plan (03/02/2024 12:33 PM EDT): Patient is on magnesium supplements will obtain a repeat mag level Annual physical exam 03/02/2024 Assessment & Plan (03/02/2024 12:35 PM EDT): Patient due for an annual physical exam will order labs in preparation of the exam coming up such as CBC, CMP, TSH, hemoglobin A1c and lipid panel Vitamin D deficiency, unspecified 03/02/2024 Assessment & Plan (03/02/2024 12:33 PM EDT): Vitamin D supplementation and obtain a vitamin D level Chronic obstructive pulmonary disease 05/21/2023 Assessment & Plan (05/03/2024 10:10 AM EST): Patient with a history of COPD who underwent a CT lung cancer screening on 04/27/2024 which revealed groundglass nodule located in the left upper lobe with mean size 9 mm. Moderate amount of coronary calcifications repeat CT in 12 to 14 months Assessment & Plan (03/02/2024 12:32 PM EDT): Continue albuterol MDI Cigarette smoker 02/13/2021 Assessment & Plan (03/02/2024 12:35 PM EDT): History of tobacco use for about [address] chest lung screening for cancer. Assessment & Plan (05/07/2023 4:14 PM EST): Still smoking- cessation encouraged. now with URI- chest is congested- will tx with medrol dose pack and z pack. She has albuterol inhaler- will send tessalon pearls- and enc vicks vapo rub for cough warning signs reviewed- call us if worse Aortic root dilatation 04/07/2020 History of aortic aneurysm repair 04/07/2020 Aortic valve disorder 05/17/2019 Assessment & Plan (05/17/2019 11:48 AM EST): This patient has moderate aortic regurgitation and a dilated aortic root at 4.7 cm we are checking the echo twice a year History of breast cancer 12/03/2018 Vitamin B12 deficiency 08/11/2017 Assessment & Plan (03/02/2024 12:33 PM EDT): Continue vitamin B12 supplementation and obtain a vitamin B12 level Acquired hypothyroidism 04/03/2017 Assessment & Plan (12/07/2024 6:48 PM EDT): Patient's last TSH level was 2.87 on the most recent labs. Patient will be continued on levothyroxine 50 mcg 5 times a week and 75 mcg twice a week. Assessment & Plan (03/02/2024 12:32 PM EDT): Last TSH 1.47 back in October 2023. Will obtain a repeat TSH level and continue levothyroxine Anxiety 04/03/2017 Assessment & Plan (12/07/2024 6:49 PM EDT): Patient with noted history who is on Ativan 0.5 mg daily as needed for anxiety. She mentions that her anxiety has been increased recently with the passing of her who she was to for 54 years and also her [id number] who she cared for. We have completed a CSA during this office visit. MassPAT was verified. She will continue on Ativan 0.5 mg p.o. daily as needed for anxiety Assessment & Plan (03/02/2024 12:34 PM EDT): Patient with increased anxiety since the of her 2 weeks ago. MassPat verified. Ativan 0.5mg daily prn Gastroesophageal reflux disease without esophagi tis 04/03/2017 Assessment & Plan (03/02/2024 12:34 PM EDT): Continue omeprazole 20 mg every morning Assessment & Plan (03/01/2019 11:50 AM EDT): She has had no recent symptoms from this Resolved Problems Problem Noted Date Diagnosed Date Resolved Date Hypotension due to hypovolemia 05/17/2024 12/07/2024 Assessment & Plan (05/17/2024 10:34 AM EST): She is a good idea with the John and Teriyte. I am encouraging her also to eat salty foods and drink plenty of water. To prop up her blood pressure. I am also encouraging her to stop her 5 mg lisinopril and then she can recheck blood pressure with her primary provider as scheduled in May. She can proceed with the colonoscopy scheduled for Friday with the prep being done . We do note that there is no history of alcoholism. She lives with her daughter who was in the room with her today. Breast cyst, left 04/08/2024 12/07/2024 Assessment & Plan (04/08/2024 5:16 PM EST): Await annual imaging. As asymptomatic today, exam deferred. Postmenopausal 03/02/2024 12/07/2024 Assessment & Plan (03/02/2024 12:35 PM EDT): DXA scan ordered [facility] Hypertension 12/19/2020 12/07/2024 Assessment & Plan (05/03/2024 10:09 AM EST): Patient overall doing well with controlled blood pressures today is 130/72. Continue lisinopril 5 mg p.o. daily Assessment & Plan (04/08/2024 5:16 PM EST): Normotensive. Continue lisinopril 5 mg daily. Continue regular monitoring at home. Call if persistently >130/80s. Assessment & Plan (03/02/2024 12:31 PM EDT): Well-controlled continue lisinopril 20 mg p.o. daily Nonrheumatic aortic valve insufficiency 06/01/2019 03/02/2024 Cardiac murmur 03/01/2019 03/02/2024 Assessment & Plan (03/01/2019 11:50 AM EDT): As mentioned she had a recent syncopal episode and a murmur although I do not think they are related but could be her murmur is in the aortic position but she has a preserved second heart sound. Vasovagal syncope 02/19/2019 03/02/2024 Assessment & Plan (05/17/2019 11:47 AM EST): This was all vasovagal and not an arrhythmia her loop recorder was basically normal Assessment & Plan (03/01/2019 11:50 AM EDT): I have ordered an event monitor in addition to the echo I will follow-up with her thereafter. Trochanteric bursitis of right hip 04/23/2017 03/02/2024 Bilateral hand pain 04/03/2017 03/02/20 COPD exacerbation 04/03/2017 03/02/2024 Assessment & Plan (05/07/2023 4:12 PM EST): Still smoking- now with URI- chest is congested- will tx with medrol dose pack and z pack. She has albuterol inhaler- will send tessalon pearls- and enc vicks vapo rub for cough warning signs reviewed- call us if worse Assessment & Plan (02/26/2023 3:57 PM EDT): Possibly the patient had a cold a month ago and has a persisting cough secondary to a COPD exacerbation. Lungs sound very rhonchorous wheezy and there is some right base rales hence the chest x-ray for concern not only of pneumonia but also neoplasm. Very low threshold to get a CT scan of the lungs. For treatment patient absolutely needs to quit smoking so we will call in some nicotine lozenges and I will treat the exacerbation with Medrol Dosepak, scheduled albuterol MDI and a Z-Jagdish. I also called in some more guaifenesin with codeine. Osteopenia 04/03/2017 03/02/2024 Primary osteoarthritis of both hands 04/03/2017 03/02/2024 Former smoker 04/03/2017 05/07/2023 Assessment & Plan (05/07/2023 4:10 PM EST): Still smoking Assessment & Plan (05/17/2019 11:48 AM EST): This patient is still smoking which I strongly counseled her against she is trying to quit smoking by the end of the year 2019 Restless legs syndrome 04/03/201703/02 Encounters Date Type Department Care Team Description 01/12/2025 Refill [facility] [address] [facility] [place] [address] Linda Aden, MATTHEW Medication Refill 01/11/2025 Orders Only [facility] [address] [place] [address] Elli Villalba MD 01/02/2025 Refill [facility] 40 [facility] [place] [address] Bob Chavez PA-C Medication Refill 12/12/2024 Refill [facility] Internal [facility] [address] [place] [address] Bob Chavez PA-C Medication Refill 12/08/2024 Refill [facility] [address] [place] [address] Renuka Benavides MD Medication Refill 12/07/2024 9:40 AM EDT Office Visit [facility] [address] [place] [address] Bob Chavez PA-C Chest pain, unspecified type (Primary Dx); Acquired hypothyroidism; Anxiety; Hypomagnesemia 12/07/2024 Orders Only [facility] [address] [place] [address] Elli Villalba MD 12/02/2024 9:14 AM EDT - 12/02/2024 11:59 PM EDT Hospital Encounter [facility] [address] [place] [address] Bob Chavez PA-C Discharge Disposition: Home or Self Care 11/08/2024 Refill [facility] [address] [place] [address] Bob Chavez PA-C Medication Refill 11/01/2024 Orders Only [facility] [address] [facility] [place] [address] ProviderElli MD from Last 3 Months Immunizations Immunization Administration Dates Next Due COVID-19 (Pre-03/17) Pfizer Vaccine, mRNA, PF 09/01/2020,08/11/2020 Influenza High-Dose Quadriva lent Preservative Free IM 05/21/2023,04/07/2022,04/07/2020 Influenza High-Dose Trivalen t Preservative Free IM 05/03/2024 Influenza Quadrivalent Preservative Free IM 05/27 Influenza, Unspecified Formulation 06/18/2021 Pneumococcal conjugate PCV13 02/17/2015 Pneumococcal polysaccharide PPSV23 04/09/2019, Tdap 04/09/2019 Family History Medical History Relation Comments No Known Problems Father No Known Problems Mother Relation Status Comments Father Mother Social History Tobacco Use Types Packs/Day Years Used Date Smoking Tobacco: Every Day Cigarettes 0.5 59.6 Started: 1965 Passive Smoke Exposure: Past Smokeless Tobacco: Never Tobacco Cessation:Ready to Q uit: Not Asked; Counseling Given: Not Answered Comments:8-10 cigarettes per day Pt has quit smoking multiple times but started up again. Alcohol Use Standard Drinks/Week Comments Yes 1 (1 standard drink = 0.6 oz pur e alcohol) 1-2 drinks, weekly Education Answer Date Recorded Are you interested in more education? Not on newton e 09/20/2022 Are you concerned about learning? Not on file 09/20/2022 No 09/20/2022 No 09/20/2022 Digital Access Answer Date Recorded No 10/15/2022 No 10/15/2022 Reliable internet access at home? Not on file 10/15/2022 Device with a working camera? Not on file Intimate Partner Violence Answer Date R ecorded Denied Basic Needs Not on file 05/26/2024 In the past 12 months have y ou been in a relationship with a person who hurts, threatens, or tries to control you? No 05/26/2024 Worried food would run out Not on file 05/26 In the past 12 months have y ou been in a relationship with a person who hurts, threatens, or tries to control you? No 05/26/2024 Comments No Sex and Gender Information Value Date Recorded Sex Assigned at Female 11/19/2022 3:19 PM EDT Legal Sex Female 10:02 PM EDT Gender Identity Female 11/19/2022 3:19 PM EDT Sexual Orientation Straight 11/19/2022 3: 19 PM EDT Last Filed Vital Signs Vital Sign Reading Time Taken Comments Blood Pressure 114/76 12/07/2024 9:28 AM EDT Pulse 57 12/07/2024 9:28 AM EDT Temperature 36.4 C (97.5 F) 05/17/2024 9:51 AM EST Respiratory Rate 14 12/07/2024 9:28 AM EDT Oxygen Saturation 97% 12/07/2024 9:28 AM EDT Inhaled Oxygen Concentration - - Weight 50.8 kg (112 lb) 12/07/2024 9:28 AM EDT Height 164.5 cm (5' 4.76 ) 12/07/2024 9:28 AM ED T Body Mass Index 18.77 12/07/2024 9:28 AM EDT Plan of Treatment Upcoming Encounters Date Type Department Care Team (Late st Contact Info) Description 06/23/2025 2:40 PM EST Office Visit [facility] [address] [place] [address] Bob Chavez PA-C [address] [place] [address] Health Maintenance Due Date Last Done Comments COLOGUARD 1995 FIT TEST 1995 FOBT 1995 SIGMOIDOSCOPY 1995 VIRTUAL COLONOSCOPY 1995 ZOSTER VACCINES (1 of 2) 2000 RSV VACCINE (1 - Risk 60-74 years 1-dose series) 2010 COVID-19 VACCINE ( season) 2024 05/03/2024, 02/27/2022, 05/03/2021, Additional history exists INFLUENZA VACCINE (#1) 2024 , 05/21/2023, 04/07/2022, Additional history exists LIPID PANEL 03/02/2025 03/02/2024, 10/24, 10/09/2022, Additional history exists DEPRESSION SCREENING 05/26/2025 05/26/2024 BLOOD PRESSURE 06/09/2025 12/07/2024 LUNG CANCER SCREENING (LDCT Only) 10/29/2025 10/29/2024, 04/27/2024, 05/21/2023, Additional history exists TSH LEVEL 12/02/2025 12/02/2024, 05/26, 04/04/2024, Additional history exists SMOKING Hx and SMOKELESS TOBACCO SCREENING 12/07/2025 12/07/2024 MAMMOGRAM 07/06/2026 07/06/2024, 03/26, 07/02/2023, Additional history exists FOLLOW UP BONE DENSITY TESTING 10/11/2026 10/11/2024, 10/04/2020, 09/03/2012 Adult Td,Tdap Booster 04/09/2029 04/09/2019 COLONOSCOPY 05/21/2034 05/21/2024, 09/24, 11/08/2013 COLORECTAL CANCER SCREENING 05/21/2034 HEPATITIS C SCREENING Completed 02/19/2019 PNEUMOCOCCAL VACCINES (50+ years) Completed 04/09/2019, 02/17/2015, 12/09/2013 OSTEOPOROSIS SCREENING INITIAL (ONE-TIME) Completed 10/11/2024, 10/04/2020, 09/03/2012 HEPATITIS A VACCINES Aged Out No long er eligible based on patient's age to complete this topic HIB VACCINES Aged Out No longer eligi ble based on patient's age to complete this topic MENINGOCOCCAL VACCINES (ACWY) Aged Out No longer eligible based on patient's age to complete this topic MENINGOCOCCAL VACCINES (B) Aged Out N o longer eligible based on patient's age to complete this topic Medical Devices Not on file Procedures Procedure Name Priority Date/Time Associated Diagnosis Comments OUTSIDE ECHO Routine 01/11/2025 4:47 PM EDT HC TB CELL MEDIATED ANTIGN RESPNSE GAMMA INTERFERON Routine 12/02/2024 9:14 AM EDT Screening for tuberculosis TSH WITH REFLEX Routine 12/02/2024 9:14 AM EDT Acquired hypothyroidism MAGNESIUM Routine 12/02/2024 9:14 AM EDT Hypomagnesemia 25-OH VITAMIN D Routine 12/02/2024 9:14 AM EDT Vitamin D deficiency, unspecified VITAMIN B12 Routine 12/02/2024 9:14 AM EDT Vitamin B12 deficiency HM LDCT PROCEDURE FOR RESULT ENTRY ONLY Routine 10/29/2024 4:31 PM EDT BD DXA AXIAL (SPINE) WITH HIP Routine 10/11/2024 9:22 AM EDT Postmenopausal HM MAMMOGRAPHY Routine 07/06/2024 3:11 PM EST HM COLONOSCOPY FOR RESULT ENTRY ONLY Routine 05/21/2024 3:12 PM EST LIPID PANEL Routine 03/02/2024 12:10 PM EDT Annual physical exam HEPATITIS C ANTIBODY, QUALITATIVE Routine 02/19/2019 9:45 AM EDT Need for hepatitis C screening test from Last 3 Months or Most Recently Relevant to Health Maintenance Results * Outside Echo Report Only (01/11/2025 4:47 PM EDT) us Historical Provider MD PALOMINO ECHO ORDERABLES Final Result * Quantiferon-TB Gold (12/02/2024 9:14 AM EDT) QuantiFERON-TB Gold Negative Negative [facility] Comment: (NOTE) No interferon-gamma response to M. tuberculosis antigens was detected. Latent infection with M. tuberculosis is unlikely. A single negative result does not exclude infection with M. tuberculosis. In patients at high risk for M.tuberculosis infection, a second test should be considered in accordance with the 2017 ATS/IDSA/CDC Clinical Practice Guidelines for Diagnosis of Tuberculosis in Adults and Children [Abdullahiinsmagnolian CRISTIANA et. al. Clin. Infect. Dis. 2017;64(2):111-115]. The reference range for the 'TB1 Ag minus Nil Result' and 'TB2 Ag minus Nil Result' is an Interferon-gamma level <0.35 IU/mL. TB1 Ag minus Nil 0.13 IU/mL [facility] TB2 Ag minus Nil 0.13 IU/mL [facility] Mitogen minus Nil 9.97 IU/mL [facility] Nil Result 0.03 IU/mL [facility] Blood 12/02/2024 9:14 AM EDT 12/02/2024 9:16 AM EDT Bob Chavez PA-C LAB BLOOD ORDERABLES Final Re sult Performing Organization Address [facility] Co de Phone Number [facility] [address] [address] [place] [address] * TSH with reflex (12/02/2024 9:14 AM EDT) TSH 2.87 0.27 - 4.20 uIU/mL [facility] Blood 12/02/2024 9:14 AM EDT 12/02/2024 9:16 AM EDT Bob Chavez PA-C LAB BLOOD ORDERABLES Final Re sult Performing Organization Address [facility] de Phone Number [address] [address] * 25-OH vitamin D (12/02/2024 9:14 AM EDT) 25 OH VIT D (TOTAL) 40 30 - 60 ng/mL [facility] Blood 12/02/2024 9:1 4 AM EDT 12/02/2024 9:16 AM EDT Bob Chavez PA-C LAB BLOOD ORDERABLES Final Re sult Performing Organization Address [facility] de Phone Number [address] [address] * Magnesium (12/02/2024 9:14 AM EDT) MAGNESIUM 2.2 1.6 - 2.6 mg/dL [facility] Blood 12/02/2024 9:14 AM EDT 12/02/2024 9:16 AM EDT Bob Chavez PA-C LAB BLOOD ORDERABLES Final Re sult Performing Organization Address [facility]/ZIP Co de Phone Number [address] [address] * Vitamin B12 (12/02/2024 9:14 AM EDT) VITAMIN B12 970 232 - 1,245 pg/mL [facility] Blood 12/02/2024 9:14 AM EDT 12/02/2024 9:16 AM EDT Bob Chavez PA-C LAB BLOOD ORDERABLES Final Re sult Performing Organization Address [facility] Co de Phone Number [address] [address] * LDCT PROCEDURE FOR RESULT ENTRY ONLY (10/29/2024 4:31 PM EDT) Historical Provider MD HEALTH MAINTENANCE Final Result * BD DXA AXIAL (SPINE) WITH HIP (10/11/2024 9:22 AM EDT) Anatomical Region Laterality Modality Bone Density Bone Density 10/11/2024 9:16 AM EDT Impressions 10/12/2024 8:32 AM EDT Interpretation: Osteoporosis. Narrative 10/12/2024 8:32 AM EDT Referred By: BOB CHAVEZ Indications: Postmenopausal Scanner: ican[employer] A with serial# of [id number] located at [facility] Bone Density Scan (DXA) 10/11/24 Details of prior DXA scans are available by clicking View Full Report BMD T- Z- Skeletal Site gm/cm2 score score BMD Change Since Prior Scan ------ ----- ----- PA Spine (L1-L4) 0.857 -1.70 0.60 N/A Total Hip (Left) 0.613 -2.70 -1.00 N/A Femoral Neck (Left) 0.550 -2.70 -0.70 N/A Total Hip (Right) 0.530 -3.40 -1.60 N/A Femoral Neck (Right) 0.519 -3.00 -0.90 N/A ------ ----- ----- * Denotes significant change when >= 0.022 g/cm2 for the spine, 0.027 g/cm2 for the total hip, 0.029 g/cm2 for the femoral neck. Interpretation: Osteoporosis. Technical Quality: Imaging of all sites was of adequate quality. FRAX: A FRAX(r) score is not provided because the patient has osteoporosis, which is generally an indication for treatment. Reviewed By: Frank Clemons MD on 10/12/2024 08:32:33 Additional Information: -World Health Organization criteria classify adults based on lowest T-score at PA spine, hip or forearm: Normal (T-score >= -1.0), Osteopenia (T-score between -1 and -2.5), or Osteoporosis (T-score <= -2.5). At [facility], T-scores are compared to peak bone density of a young white gender matched reference population. - For premenopausal women and men under the age of 50, Z-scores (comparison to age, gender, and ethnicity matched reference population) are used: Above expected range for age (Z-score >= 2.0), Within expected range of age (Z-score 1.9 to -1.9), or Below expected range for age (Z-score <= -2.0). - The Bone Health and Osteoporosis Foundation recommends that treatment be considered in men aged more than 50 years and in postmenopausal women with ANY of the following: Prior hip or vertebral fractures; T-score of <= -2.5 at the PA spine or hip; or 10 year fracture probability by FRAX of >= 3% for the hip or >= 20% for major osteoporotic fracture. - The FRAX algorithm (https://www.louisa.ac.uk/FRAX/tool.aspx) is designed to predict 10-year fracture risk in treatment-naive adults between the ages of 40 and 90. It is not intended to be used in those receiving pharmacologic osteoporosis treatment. - The TBS is derived from the texture of the DXA spine image and has been shown to be related to bone microarchitecture and fracture risk. This data provides information independent of BMD value. It adds to fracture risk assessment with a FRAX adjusted for TBS score. If your patient had a TBS and qualified for a FRAX score, the reported FRAX score has been adjusted for TBS. TBS Score Interpretation 1.350 and greater Normal bone microarchitecture 1.200 to 1.350 Partially degraded bone microarchitecture 1.200 and less Degraded bone microarchitecture - Including race/ethnicity in the generation of T- or Z-scores or in the FRAX calculation is complicated, and currently undergoing active review to ensure that we can give patients the best information on their risk of fracture. - Some prior studies may not be compatible with our comparison software. - Click on View Full Report to see subsequent pages with images and prior bone density results. Procedure Note Frank Clemons MD - 10/12/2024 Referred By: BOB CHAVEZ Indications: Postmenopausal Scanner: icanbuy A with serial# of [id number] located at [facility] Bone Density Scan (DXA) 10/11/24 Details of prior DXA scans are available by clicking View Full Report BMD T- Z- Skeletal Site gm/cm2 score score BMD Change Since Prior Scan ------ ----- PA Spine (L1-L4) 0.857 -1.70 0.60 N/A Total Hip (Left) 0.613 -2.70 -1.00 N/A Femoral Neck (Left) 0.550 -2.70 -0.70 N/A Total Hip (Right) 0.530 -3.40 -1.60 N/A Femoral Neck (Right) 0.519 -3.00 -0.90 N/A ------ ----- * Denotes significant change when >= 0.022 g/cm2 for the spine, 0.027g/cm2 for the total hip, 0.029 g/cm2 for the femoral neck. Interpretation: Osteoporosis. Technical Quality: Imaging of all sites was of adequate quality. FRAX: A FRAX(r) score is not provided because the patient hasosteoporosis, which is generally an indication for treatment. Reviewed By: Frank Clemons MD on 10/12/2024 08:32:33 Additional Information: -World Health Organization criteria classify adults based on lowestT-score at PA spine, hip or forearm: Normal (T-score >= -1.0), Osteopenia (T-score between -1 and -2.5), or Osteoporosis (T-score <= -2.5). At [facility], T-scores are compared to peak bone density of a young white gender matched reference population. - For premenopausal women and men under the age of 50, Z-scores(comparison to age, gender, and ethnicity matched reference population) are used:Above expected range for age (Z-score >= 2.0), Within expected range of age (Z-score 1.9 to -1.9), or Below expected range for age (Z-score <= -2.0). - The Bone Health and Osteoporosis Foundation recommends that treatment be considered in men aged more than 50 years and in postmenopausal women with ANY of the following: Prior hip or vertebral fractures; T-score of <= -2.5 at the PA spine or hip; or 10 year fracture probability by FRAX of >= 3%for the hip or >= 20% for major osteoporotic fracture. - The FRAX algorithm (https://www.louisa.ac.uk/FRAX/tool.aspx) is designed to predict 10-year fracture risk in treatment-naive adultsbetween the ages of 40 and 90. It is not intended to be used in those receiving pharmacologic osteoporosis treatment. - The TBS is derived from the texture of the DXA spine image and has been shown to be related to bone microarchitecture and fracture risk. This data provides information independent of BMD value. It adds to fracture risk assessment with a FRAX adjusted for TBS score. If your patient had a TBSand qualified for a FRAX score, the reported FRAX score has been adjusted for TBS. TBS Score Interpretation 1.350 and greater Normal bone microarchitecture 1.200 to 1.350 Partially degraded bone microarchitecture 1.200 and less Degraded bone microarchitecture - Including race/ethnicity in the generation of T- or Z-scores or in the FRAX calculation is complicated, and currently undergoing active review to ensure that we can give patients the best information on their risk of fracture. - Some prior studies may not be compatible with our comparison software. - Click on View Full Report to see subsequent pages with images andprior bone density results. IMPRESSION: Interpretation: Osteoporosis. Bob Chavez PA-C IMG BD BONE DENSITY DEXA Valerie l Result * MAMMOGRAPHY FOR RESULT ENTRY ONLY (07/06/2024 3:11 PM EST) Historical Provider HEALTH MAINTENANCE Final Result * HM COLONOSCOPY FOR RESULT ENTRY ONLY (05/21/2024 3:12 PM EST) Historical Provider HEALTH MAINTENANCE Final Result * (ABNORMAL) Lipid panel (03/02/2024 12:10 PM EDT) HDL 60 mg/dL [facility] Comment: Interpretation <40 mg/dL: Low HDL cholesterol (major risk factor for CHD) Greater than or equal to 60 mg/dL: High HDL cholesterol ( negative risk factor for CHD) HDL - cholesterol is affected by a number of factors, e.g. smoking, excerise, hormones, sex and age. CHOLESTEROL 192 0 - 240 mg/dL [facility] TRIGLYCERIDES 113 30 - 160 mg/dL [facility] LDL 109 50 - 129 mg/dL [facility] Comment: LDL levels in terms of risk for coronary heart disease: <100 mg/dL: Optimal 100-129 mg/dL: Near or above optimal 130-159 mg/dL: Borderline high 160-189 mg/dL: High >190 mg/dL: Very High CARDIAC RISK RATIO 3.2(L) 3.3 - 4.4 C [facility] Blood 03/02/2024 12:1 0 PM EDT 03/02/2024 12:14 PM EDT us Bob HARRISC LAB BLOOD ORDERABLES Final Re sult Performing Organization Address [facility] Co de Phone Number [address] [address] * Hepatitis C antibody, qualitative (02/19/2019 9:45 AM EDT) HCV NON-REACTIV E NON-REACTI VE [facility] Blood 02/19/2019 9:45 AM EDT 02/19/2019 9:48 AM EDT us Sherie Worthington METAL CEILING BUILDER LAB BLOOD ORDERABLES Final Resu lt Performing Organization Address [facility] Co de Phone Number [address] [address] from Last 3 Months or Most Recently Relevant to Health Maintenance Insurance MEDICARE PREFERRED HMO REPLACEMENT MEDICARE PART A & B [place] MEDICARE PREFERRED HMO REPLACEMENT MEDICARE PART A & B MEDICARE PREFERRED HMO REPLACEMENT [place] MEDICARE PREFERRED HMO REPLACEMENT MEDICARE PREFERRED HMO REPLACEMENT MEDICARE PART A & B MEDICARE PREFERRED HMO [place] [address] [place] [address] MEDICARE PREFERRED HMO REPLACEMENT MEDICARE PART A & B [place] MEDICARE PREFERRED HMO REPLACEMENT MEDICARE PART A & [place] [address] [place] [address] MEDICARE PREFERRED HMO REPLACEMENT MEDICARE PART A & B Care Teams Leaf Conditioner Helper Relationship Specialty Start Date End Date Bob Chavez PA-C [address] [place] [address] PCP - General Physician Armored Car Messenger 12/29/23 Arnulfo Woodward MD [address] [place] [address] Insurance Assigned Provider Internal Medicine 12/03/18 Cesar Evangelista MD [address] [place] [address] [place] [address] Ophthalmology 07/10/21 Additional Source Comments The information contained in this document represents components of the legal health record. It is not the complete legal health record.[facility]
--- OUTSIDE RECORDS SUMMARY | 2025-01-18 09:16 | XMS_ITS | Encounter Summary ---
Author Organization [facility] Address [address] [facility] [address] [place] [address] Phone Care Team Providers Care Chemical Machine Tender Name Role Phone Arnulfo Woodward MD Unavailable [phone] Sherie Worthington LSW Primary Care Provider [phone] Cesar Evangelista MD Unavailable Renuka Benavides MD Primary Care Provider [phone] Bob Chavez PA-C Primary Care Provider [phone] Reason for Visit * Reason Onset Date Comments Cough 12/03/2022 Encounter Details Date Type Department Care Team (Late st Contact Info) Description 12/03/[address] [facility] Internal Medicine [address] [place] [address] Sherie Worthington, LSW [address] [facility] [address] [place] [address] [email or web address] Cough Social History Tobacco Use Types Packs/Day Years Used Date Smoking Tobacco: Every Day Cigarettes 0.5 59.6 Started: 1965 Passive Smoke Exposure: Past Smokeless Tobacco: Never Comments:8-10 cigarettes per day Pt has quit smoking multiple times but started up again. Alcohol Use Standard Drinks/Week Comments Yes 0 (1 standard drink = 0.6 oz pure alcohol) 1-2 x month; 1 drink socially per seating Education Answer Date Recorded Are you interested in more education? Not on [place] e 09/20/2022 Are you concerned about learning? Not on file 09/20/2022 No 09/20/2022 No 09/20/2022 Digital Access Answer Date Recorded No 10/15/2022 No 10/15/2022 Reliable internet access at home? Not on file 10/15/2022 Device with a working camera? Not on file Comments No Sex and Gender Information Value Date Recorded Sex Assigned at Female 11/19/2022 3:19 PM EDT Legal Sex Female 10:02 PM EDT Gender Identity Female 11/19/2022 3:19 PM EDT Sexual Orientation Straight 11/19/2022 3: 19 PM EDT documented as of this encounter Progress Notes * Stella Forman RN - 12/04/2022 1:24 PM EDT Spoke to Shelli. Yes looking for a cough suppressant at least at night. Prefers tussin w/codeine to [facility] in [place] Advised to call back for worsening symptoms or failure to improve * Sherie Worthington NP - 12/04/2022 12:39 PM EDT Is she trying to suppress cough? If it is productive I would recommend avoiding suppressing it whenpossible. I can send in robitussin with codeine or tessalon perles to help suppress cough, especially at night. * Stella Forman RN - 12/04/2022 11:02 AM EDT Congested productive cough. Clear phlegm. She sounds bronchial and reports she feels chest congestion Denies fever. Symptoms started 3 weeks ago States the mucinex is not working Asking if you can send something else in-will advise UC otherwise due to no openings in office Nurse Triage Encounter Note Reason for Triage Shelli Valenzuela contacted office for Medication Problem Call Disposition Go To Urgent Care Patient/caregiver understands and will follow disposition: No, Wishes To Speak With Pcp Patient/caregiver understands and will follow care advice: Other (Comment) Disposition Comments: Protocols used: Xrevn-Bfslm-Aj Initial Symptom Screening and Assessment IA Symptom Onset More than a week Symptom Severity Moderate - interferes with normal activities Symptom Pattern Constant/continuous Aggravating factors or triggers Unsure Home Treatments OTC Medications Did the home treatments work? No Fever? No Medication Considerations No medication concerns Recent surgery? No Known allergy? No Recent travel? No Recent exposure to sick contact? No Breathing or Chest Symptoms (Resp/Cardiac) Respiratory symptoms Productive cough Respiratory history? Yes Condition COPD Injury to chest? No Artificial airway or appliances? No Care Advice Given Care Advice Patient/Caregiver understands and will follow care advice?: Other (comment) SEE IN OFFICE TODAY: * You need to be examined today. Let me give you an appointment. * IF NO AVAILABLE APPOINTMENTS: You need to be seen in the Urgent Care Center. Go to the one at [facility]. Go there today. A nearby Urgent Care Center is often a good source of care. Another choice is to go to the Emergency Department. COUGH MEDICINES: * COUGH DROPS: Hdnn-nkk-opofjkv cough drops can help a lot, especially for mild coughs. They soothean irritated throat and remove the tickle sensation in the back of the throat. Cough drops are easyto carry with you. * COUGH SYRUP WITH DEXTROMETHORPHAN: An kyjk-anv-matqnkv cough syrup can help your cough. The most common cough suppressant in lmso-gdp-mangqby cough medicines is dextromethorphan. * HOME REMEDY - HARD CANDY: Hard candy works just as well as leql-ukw-wtghjam cough drops. People who have diabetes should use sugar-free candy. * HOME REMEDY - HONEY: This old home remedy has been shown to help decrease coughing at night. The adult dosage is 2 teaspoons (10 ml) at bedtime. Honey should not be given to infants under one year of age. COUGH SYRUP WITH DEXTROMETHORPHAN - EXTRA NOTES AND WARNINGS: * Do not try to completely stop coughs that produce mucus and phlegm. * Coughing is helpful. It brings up the mucus from the lungs and helps prevent pneumonia. * RESEARCH: Some research studies show that dextromethorphan reduces the frequency and severity of cough in those 18 years and older without significant adverse effects. Other studies suggest that dextromethorphan is no better than placebo at reducing a cough. * DRUG ABUSE: It should be noted that dextromethorphan has become a drug of abuse. This problem is seen most often in teenagers. Overdose symptoms can range from giggling and feeling high to hallucinations and coma. * WARNING: Do not take dextromethorphan if you are taking a monoamine oxidase (MAO) inhibitor now or in the past 2 weeks. Examples of MAO inhibitors include isocarboxazid (Marplan), phenelzine (Nardil), selegiline (Eldepryl, Emsam, Zelapar), and tranylcypromine (Parnate). * WARNING: Do not take dextromethorphan if you are taking venlafaxine (Effexor). * Before taking any medicine, read all the instructions on the package. COUGH SYRUP WITH DEXTROMETHORPHAN: * Cough syrups containing the cough suppressant dextromethorphan may help decrease your cough. * Cough syrup works best for coughs that keep you awake at night. It can also sometimes help in thelate stages of a lung or airway infection when the cough is dry and hacking. Cough syrup can be used along with cough drops. * Examples: Delsym 12-hour Cough, Robitussin Cough Long-Acting, Triaminic Long- Acting, Vicks DayQuil Cough. COUGHING SPELLS: * Drink warm fluids. Inhale warm mist. This can help relax the airway and also loosen up phlegm. * Suck on cough drops or hard candy to coat the irritated throat. PREVENT DEHYDRATION: * Drink adequate liquids. * This will help soothe an irritated or dry throat and loosen up the phlegm. AVOID TOBACCO SMOKE: * Avoid smoke from tobacco and e-cigarettes. * Smoking or being exposed to smoke makes coughs much worse. HUMIDIFIER: * If the air is dry, use a humidifier in the bedroom. * Dry air makes coughs worse. Patient will call back with additional questions or if symptoms change or worsen Stella Forman RN Reason for Disposition and Assessment Reason for Disposition and Assessment Reason for Disposition ??? Known COPD or other severe lung disease (i.e., bronchiectasis, cystic fibrosis, lung surgery) and worsening symptoms (i.e., increased sputum purulence or amount, increased breathing difficulty) Protocols used: [id number] * Demetrius Roman - 12/03/2022 12:56 PM EDT Pt calls stating the mucinex Sherie prescribed her isnt working and she needs something stronger- please advise. documented in this encounter Plan of Treatment Upcoming Encounters Date Type Department Care Team (Late st Contact Info) Description 06/23/2025 2:40 PM EST Office Visit [facility] Internal Medicine [address] [place], [place] [phone] Bob Chavez PA-C [address] [place] [address] documented as of this encounter Visit Diagnoses Not on filedocumented in this encounter Additional Health Concerns Assessment Noted Time PHQ-2 Depression Total Score: 0 01/30/20 22 9:57 AM EDT documented as of this encounter Care Teams Chemical Machine Tender Relationship Specialty Start Date End Date Sherie Worthington NP [address] [place] [address] PCP - General Family Medicine 12/14/18 07/29/23 Renuka Benavides MD [address] [place] [address], [address] [place] [address] PCP - General Family Medicine 07/30/23 12/28/23 Bob Chavez PA-C [address] [place] [address] [email or web address] PCP - General Physician Honeycomb Blanket Maker 12/29/23 Arnulfo Woodward MD [address] [place] [address] [email or web address] Insurance Assigned Provider Internal Medicine 12/03/18 Cesar Evangelista MD [address] [place] [address] [place] [address] Ophthalmology 07/10/21 documented as of this encounter Additional Source Comments The information contained in this document represents components of the legal health record. It is not the complete legal health record.[facility]
--- OUTSIDE RECORDS SUMMARY | 2025-01-18 09:16 | XMS_ITS | Encounter Summary ---
Author Organization [facility] Address [address] [place] [address] [place] [address] Phone Care Team Providers Care Public Health Staff Nurse Name Role Phone Arnulfo Woodward MD Unavailable [phone] Arnulfo Woodward MD Primary Care Provider [phone] Sherie Worthington STATEMENT CLERKS MANAGER Primary Care Provider [phone] Cesar Evangelista MD Unavailable Renuka Benavides MD Primary Care Provider [phone] Bob Chavez PA-C Primary Care Provider [phone] Encounter Details Date Type Department Care Team (Late st Contact Info) Description 12/11/2018 Ancillary Orders [facility] Medical [facility] Internal Medicine [address] [place] [address] Sherie Worthington, STATEMENT CLERKS MANAGER [address] [place] [address] [address] [place] [address] [email or web address] Breast screening Social History Tobacco Use Types Packs/Day Years Used Date Smoking Tobacco: Every Day Cigarettes 0.3 8 Smokeless Tobacco: Never Comments:down to one daily Alcohol Use Standard Drinks/Week Comments Yes 0 (1 standard drink = 0.6 oz pur e alcohol) once a month-wine Comments No Sex and Gender Information Value Date Recorded Sex Assigned at Female 11/19/2022 3:19 PM EDT Legal Sex Female 10:02 PM EDT Gender Identity Female 11/19/2022 3:19 PM EDT Sexual Orientation Straight 11/19/2022 3: 19 PM EDT documented as of this encounter Plan of Treatment Upcoming Encounters Date Type Department Care Team (Late st Contact Info) Description 06/23/2025 2:40 PM EST Office Visit [facility] Internal Medicine [address] [place] [address] Bob Chavez PA-C [address] [place] [address] [email or web address] documented as of this encounter Results * BI MAMMOGRAM SCREENING WITH TOMOSYNTHESIS WITH CAD (BILATERAL) (06/18/2019 11:09 AM EST) Anatomical Region Laterality Modality Breast Left, Breast Right, Breast Bilateral Bila teral Mammography 06/18/2019 11:1 7 AM EST Impressions 06/18/2019 12:27 PM EST Subcentimeter hypoechoic mass in the 12 o'clock position of the left breast demonstrated on ultrasound is stable. New subcentimeter mass in the posterior 3 o'clock position of the left breast demonstrated on mammogram and ultrasound. Both areas are very likely benign and probably represent areas of fibrocystic change. A six-month follow-up ultrasound of both masses recommended to ensure no worrisome features developed. No other findings suspicious for malignancy in either breast. Bilateral screening mammography in one year recommended Findings and recommendation conveyed to the patient before she left the clinic. BI-RADS CATEGORY 3 - PROBABLY BENIGN LEFT RECOMMENDATION DUE DATE: 6 Months Ultrasound RIGHT RECOMMENDATION DUE DATE: Annual Mammography Screening DENSITY: There are scattered fibroglandular densities. POS - CDHMAMA Narrative 06/18/2019 12:27 PM EST Bilateral mammography is performed in conjunction with computed aided detection. 3-D tomography along with 2-D C view imaging was also performed. Comparison made to previous dated as far back as 11/13/2012 and as recent as 12/11/2018. Patient is status-post right lumpectomy and radiation therapy for breast carcinoma in 1998. Abnormal left ultrasound in 11/2018. Post-therapeutic changes on the right are stable. Stable coarse calcification at the surgical site on the right consistent with fat process. New mass in the 3 o'clock position of the left breast posteriorly No other suspicious masses, suspicious areas of architectural distortion or suspicious microcalcifications. Subsequently, directed scanning performed of the 12:00 and 3:00 positions of the left breast to reevaluate mass in the 12 o'clock position demonstrated on prior ultrasound and the new mass in the posterior outer left breast. The hypoechoic mass in the 12 o'clock position remains well-circumscribed and wider than tall. The mass is stable, including the anechoic component. Mass again measures 6 mm maximal diameter. The new mass on mammography in the 3 o'clock position has essentially the same features. It is hypoechoic, well-circumscribed and wider than tall with an anechoic component the mass measures 9 mm x 8 mm x 5 mm. No other masses demonstrated. us Sherie Worthington STATEMENT CLERKS MANAGER IMG MG EXAMS Final Result documented in this encounter Visit Diagnoses Diagnosis Breast screening Breast screening, unspecified Breast screening Breast screening, unspecified documented in this encounter Additional Health Concerns Assessment Noted Time PHQ-2 Depression Total Score: 0 12/04/19 19 9:06 AM EDT documented as of this encounter Care Teams Public Health Staff Nurse Relationship Specialty Start Date End Date Arnulfo Woodward MD [address] [place] [address] PCP - General Internal Medicine 12/08/18 12/13/18 Sherie Worthington NP [address] [place] [address] PCP - General Family Medicine 12/14/18 07/29/23 Renuka Benavides MD [address] [place] [address], [address] [place] [address] PCP - General Family Medicine 07/30/23 12/28/23 Bob Chavez PA-C [address] [place] [address] [email or web address] PCP - General Physician Project Builder 12/29/23 Arnulfo Woodward MD [address] [place] [address] [email or web address] Insurance Assigned Provider Internal Medicine 12/03/18 Cesar Evangelista MD [address] [place] [address] [place] [address] Ophthalmology 07/10/21 documented as of this encounter Additional Source Comments The information contained in this document represents components of the legal health record. It is not the complete legal health record.[facility]
--- OUTSIDE RECORDS SUMMARY | 2025-01-18 09:16 | XMS_ITS | Encounter Summary ---
Author Organization [facility] Address [address] [place] [address] [place] [address] Phone Care Team Providers Care Glass Block Installer Name Role Phone Arnulfo Woodward MD Unavailable [phone] Sherie Worthington NP Primary Care Provider [phone] Cesar Evangelista MD Unavailable [phone] Renuka Benavides MD Primary Care Provider [phone] Bob Chavez PA-C Primary Care Provider [phone] Encounter Details Date Type Department Care Team (Late st Contact Info) Description 05/10/2021 Procedure Pass [facility] - [address] [place] [address] Social History Tobacco Use Types Packs/Day Years Used Date Smoking Tobacco: Some Days Cigarettes 0.3 8 Started: 07/2011; Last attempted to quit: 07/2019 Smokeless Tobacco: Never Comments:6-8 cigarettes per day Alcohol Use Standard Drinks/Week Comments Not Currently 0 (1 standard drink = 0.6 oz [...] Description 06/23/2025 2:40 PM EST Office Visit [facility] [place] [facility] [address] [place], [place] [address] Bob Chavez PA-C [address] [place] [address] documented as of this encounter Visit Diagnoses Not on filedocumented in this encounter Additional Health Concerns Assessment Noted Time PHQ-2 Depression Total Score: 0 09/07/19 21 9:43 AM EDT documented as of this encounter Care Teams Glass Block Installer Relationship Specialty Start Date End Date Sherie Worthington NP [address] [place] [address] PCP - General Family Medicine 12/14/18 07/29/23 Renuka Benavides MD [address] [place] [address] [address] [place] [address] [email or web address] PCP - General Family Medicine 07/30/23 12/28/23 Bbo Chavez PA-C [address] [place] [address] PCP - General Physician Frame Table Operator Helper 12/29/23 Arnulfo Woodward MD [address] [place] [address] [email or web address] Insurance Assigned Provider Internal Medicine 12/03/18 Cesar Evangelista MD [address] [place] [address] [address] [place], [place] [phone] Ophthalmology 07/10/21 documented as of this encounter Additional Source Comments The information contained in this document represents components of the legal health record. It is not the complete legal health record.[facility]
--- OUTSIDE RECORDS SUMMARY | 2025-01-18 09:16 | XMS_ITS | Encounter Summary ---
Author Organization [facility] Address [address] [place] [address] [place] [address] Phone Care Team Providers Care Integration Technician Name Role Phone Arnulfo Woodward MD Unavailable [phone] Sherie Worthington NP Primary Care Provider [phone] Cesar Evangelista MD Unavailable [phone] Renuka Benavides MD Primary Care Provider [phone] Bob Chavez PA-C Primary Care Provider [phone] Encounter Details Date Type Department Care Team (Late st Contact Info) Description 07/15/2019 Procedure Pass [facility] [address] [place] [address] Social History Tobacco Use Types Packs/Day Years [...] Encounters Date Type Department Care Team (Late Contact Info) Description 06/23/2025 2:40 PM EST Office Visit [facility] Internal Medicine [address] [place] [address] Bob Chavez PA-C [address] [place], [place] [email or web address] documented as of this encounter Visit Diagnoses Not on filedocumented in this encounter Additional Health Concerns Assessment Noted Time PHQ-2 Depression Total Score: 0 06/01/19 20 10:38 AM EST documented as of this encounter Care Teams Integration Technician Relationship Specialty Start Date End Date Sherie Worthington, FAMILY AND CONSUMER EDUCATION TEACHER [address] [place] [address] PCP - General Family Medicine 12/14/18 07/29/23 Renuka Benavides MD [address] [place] [address], [address] [place] [address] PCP - General Family Medicine 07/30/23 12/28/23 Bob Chavez PA-C [address] [place] [address] PCP - General Physician Fixed Route Bus Operator 12/29/23 Arnulfo Woodward MD [address] [place] [address] Insurance Assigned Provider Internal Medicine 12/03/18 Cesar Evangelista MD [address] [place] [address] [place] [address] Ophthalmology 07/10/21 documented as of this encounter Additional Source Comments The information contained in this document represents components of the legal health record. It is not the complete legal health record.[facility]
--- OUTSIDE RECORDS SUMMARY | 2025-01-18 09:16 | XMS_ITS | Patient Health Record ---
Author Organization [facility] Address [address] [place] [address] Care Team Providers Care Chief Dispatcher Name Role Phone Neal Metcalf Fortunato [phone] Reason For Referral No Information Plan Of Treatment No Information
--- OUTSIDE RECORDS SUMMARY | 2025-01-18 09:16 | XMS_ITS | Patient Health Record ---
Author Organization [facility] Address [address] [place] [address] Care Team Providers Care Pellet Preparation Operator Name Role Phone Arnulfo Woodward MD Primary Care Provider Dulce Marroquin Unavailable [phone] Nisha Medley Unavailable [phone] Allergies Allergen (clinical drug ingredient) Drug/Non Drug Allergy documented on EMR Reaction Allergy Type Onset Date Status sulfamethoxazole / trimethoprim Bactrim Unknown Drug Allergy Active Reason For Referral Diagnosis 1 Pain in unspecified foot (M79.673) Referring Provider First Name Arnulfo Referring Provider Last Name Trace [facility] Dulce Lechuga Referred Address [address] [place], [place],[address],[place] Referred Provider Specialty Podiatry Referral Priority Routine Diagnosis 1 Atherosclerosis of n ative artery of both lower extremities, with unspecified presence of clinical manifestation (I70.203) Diagnosis 2 Pain in left toe(s) (M79.675) Diagnosis 3 Pain in right toe(s) (M79.674) Diagnosis 4 Tinea unguium (B35.1 ) Diagnosis 5 Xerosis of skin (L85 .3) Referring Provider First Name Arnulfo Referring Provider Last Name Trace Referred [facility] Referred Provider Nisha Medley Referred Address [address], [place],[address],[place] Referred Provider Specialty Podiatry Referral Priority Routine [...] W/U Status Risk Notes Problem Plantar wart (52654366) Plantar wart (B07.0) Active confirmed Problem Atherosclerosis of three affiliated artery of both lower extremities, with unspecified presence of clinical manifestation (I70.203) Active confirmed Q7(A), Q8(2B), Q9(1B,2C ) Vital Signs Blood pressure diastolic 65 mm Hg 12/15/2024 Height 5ft 6inch in 12/15/2024 Blood pressure systolic 126 mm Hg 12/15/2024 Weight 110 lbs 12/15/2024 BMI 17.75 kg/m2 12/15/2024 Procedures Procedure Date Ordered Date Performed Result Body Sit e 21772-NSRCNWH NAIL, 6 OR MORE 06/09/2024 N/A 65136-IJRT SKIN LESIONS, 2 TO 4 06/09/2024 N/A 67174-Maqr Destruction, 1-14 10/13/2024 N/A 02464-Qqgu Destruction, 1-14 12/15/2024 N/A Encounters Encounter Location Date Provider Diagnosis [facility] [address] [address] 06/09/2024 Dulce Lechuga Xerosis of skin L85.3 ; Atherosclerosis of three affiliated artery of both lower extremities, with unspecified presence of clinical manifestation I70.203 ; Tinea unguium B35.1 ; Pain in right toe(s) M79.674 and Pain in left toe(s) M79.[address] [address] 08/11/2024 Nisha Medley Xerosis of skin L85. 3 ; Atherosclerosis of three affiliated artery of both lower extremities, with unspecified presence of clinical manifestation I70.203 ; Tinea unguium B35.1 ; Pain in right toe(s) M79.674 ; Pain in left toe(s) M79.675 ; Right foot pain M79.671 ; Plantar wart B07.0 and Left foot pain M79.[address] [address] 10/13/2024 Dulce Lechuga Right foot pain M79.671 ; Plantar wart B07.0 ; Left foot pain M79.672 and Atherosclerosis of three affiliated artery of both lower extremities, with unspecified presence of clinical manifestation I70.[address] [address] 12/15/2024 Dulce Lechuga Right foot pain M79.671 ; Plantar wart B07.0 ; Left foot pain M79.672 and Atherosclerosis of three affiliated artery of both lower extremities, with unspecified presence of clinical manifestation I70.[address] [address] 04/15/2024 Dulce Lechuga Assessments Encounter Date Diagnosis (ICD Code) Assessment Notes Treatment Notes Treatment Clinical Notes Section Notes 06/09/2024 Xerosis of skin (ICD-10 - L85.3) 08/11/2024 Xerosis of skin (ICD-10 - L85.3) 08/11/2024 Atherosclerosis of three affiliated artery of both lower extremities, with unspecified presence of clinical manifestation (ICD-10 - I70.203) Q7(A), Q8(2B), Q9(1B,2C) 10/13/2024 Right foot pain (ICD-10 - M79.671) 12/15/2024 Right foot pain (ICD-10 - M79.671) 12/15/2024 Plantar wart (ICD-10 - B07.0) 10/13/2024 Plantar wart (ICD-10 - B07.0) 06/09/2024 Atherosclerosis of three affiliated artery of both lower extremities, with unspecified presence of clinical manifestation (ICD-10 - I70.203) Q7(A), Q8(2B), Q9(1B,2C) 08/11/2024 Tinea unguium (ICD-10 - B35.1) 08/11/2024 Pain in right toe(s) (ICD-10 - M79.674) 06/09/2024 Tinea unguium (ICD-10 - B35.1) 10/13/2024 Left foot pain (ICD-10 - M79.672) 12/15/2024 Left foot pain (ICD-10 - M79.672) 12/15/2024 Atherosclerosis of three affiliated artery of both lower extremities, with unspecified presence of clinical manifestation (ICD-10 - I70.203) Q7(A), Q8(2B), Q9(1B,2C) 10/13/2024 Atherosclerosis of three affiliated artery of both lower extremities, with unspecified [...] Treatment Pending Test Test Name Order Date [id number] NAIL, 6 OR MORE 06/09/2024 66233-Jydk Destruction, 1-14 10/13/2024 92169-Qyfq Destruction, 1-14 12/15/2024 60885-HXSP SKIN LESIONS, 2 TO 4 06/09/19 Next Appt Details Provider Name:Dulce Vieira catrachito, 02/16/2025 03:30:00 PM, [address] [place] [address], [phone], Provider Name:Dulce Vieira catrachito, 04/25/2025 09:00:00 AM, [address] [place] [address], [phone], Insurance Providers Payer Name Payer Address Payer Phone Subscriber Number Group Number Insured Name Patient Relationship to Insured Coverage Start Date Coverage End Date [employer] Medicare Preferred [address] ANITA Pastor [id number] Shelli Valenzuela Self - patient is the insured 4 Medical (General) History Medical History History ICD Code High Blood Pressure thyroid
--- OUTSIDE RECORDS SUMMARY | 2025-01-18 09:17 | XMS_ITS | Encounter Summary ---
Author Organization [facility] Address [address] [place] [address] [place] [address] Phone Care Team Providers Care Road Builder Name Role Phone Arnulfo Woodward MD Unavailable [phone] Sherie Worthington NP Primary Care Provider Cesar Evangelista MD Unavailable Renuka Benavides MD Primary Care Provider [phone] Bob Chavez PA-C Primary Care Provider [phone] Encounter Details Date Type Department Care Team (Late st Contact Info) Description 05/10/2021 Procedure Pass [facility] - [address] [place] [address] Social History Tobacco Use Types Packs/Day Years [...] EST Office Visit [facility] [place] [facility] [address] [place] [address] Bob Chavez PA-C [address] [place] [address] documented as of this encounter Visit Diagnoses Not on filedocumented in this encounter Additional Health Concerns Assessment Noted Time PHQ-2 Depression Total Score: 0 09/07/19 21 9:43 AM EDT documented as of this encounter Care Teams Road Builder Relationship Specialty Start Date End Date Sherie Worthington NP [address] [place] [address] PCP - General Family Medicine 12/14/18 07/29/23 Renuka Benavides MD [address] [place] [address] [address] [place] [address] [email or web address] PCP - General Family Medicine 07/30/23 12/28/23 Bob Chavez PA-C [address] [place] [address] PCP - General Physician Spiral Gear Generator 12/29/23 Arnulfo Woodward MD [address] [place] [address] Insurance Assigned Provider Internal Medicine 12/03/18 Cesar Evangelista MD [address] [place] [address] [address] [place], [place] [phone] Ophthalmology 2/15/22 documented as of this encounter Additional Source Comments The information contained in this document represents components of the legal health record. It is not the complete legal health record.[facility]
--- OUTSIDE RECORDS SUMMARY | 2025-01-18 09:17 | XMS_ITS | Encounter Summary ---
Author Organization [facility] Address [address] [place] [address] Phone Care Team Providers Care Checking Department Supervisor Name Role Phone Arnulfo Woodward MD Primary Care Provider [phone] Sherie Worthington MEDICAL INSURANCE CLAIMS PROCESSOR Primary Care Provider [phone] Arnulfo Woodward MD Unavailable [phone] Arnulfo Woodward MD Primary Care Provider [phone] Sherie Worthington MEDICAL INSURANCE CLAIMS PROCESSOR Primary Care Provider Cesar Evangelista MD Unavailable Renuka Benavides MD Primary Care Provider [phone] Bob Chavez PA-C Primary Care Provider Encounter Details Date Type Department Care Team (Late st Contact Info) Description 10/15/2018 Procedure Pass [facility] Endoscopy Admitting Dept Virtual Department [address] [place] [address] Social History Tobacco Use Types Packs/Day Years [...] Description 06/23/2025 2:40 PM EST Office Visit [facility] Internal Medicine [address] [place] [address] Bob Chavez PA-C [address] [place] [address] [email or web address] documented as of this encounter Visit Diagnoses Not on filedocumented in this encounter Additional Health Concerns Assessment Noted Time PHQ-2 Depression Total Score: 0 09/03/19 1:59 PM EDT documented as of this encounter Care Teams Checking Department Supervisor Relationship Specialty Start Date End Date Arnulfo Woodward MD [address] [place] [address] PCP - General Internal Medicine 09/28/18 12/02/18 Sherie Worthington NP [address] [place] [address] PCP - General Family Medicine 12/03/18 12/07/18 Arnulfo Woodward MD [address] [place] [address] PCP - General Internal Medicine 12/08/18 12/13/18 Sherie Worthington NP [address] [place] [address] PCP - General Family Medicine 12/14/18 07/29/23 Renuka Benavides MD [address] [place] [address], [address] [place] [address] [email or web address] PCP - General Family Medicine 07/30/23 12/28/23 Bob Chavez PA-C [address] [place] [address] [email or web address] PCP - General Physician Hot Saw Operator 12/29/23 Arnulfo Woodward MD [address] [place] [address] [email or web address] Insurance Assigned Provider Internal Medicine 12/03/18 Cesar Evangelista MD [address] [place] [address] Dr [address] [place] [address] Ophthalmology 07/10/21 documented as of this encounter Additional Source Comments The information contained in this document represents components of the legal health record. It is not the complete legal health record.[facility]
--- OUTSIDE RECORDS SUMMARY | 2025-01-18 09:17 | XMS_ITS | Encounter Summary ---
Author Organization appening [facility] Address [address] [facility] 7t [place] [address] Care Team Providers Care Rat Culturist Name Role Phone Unavailable Primary Care Provider [...]
--- OUTSIDE RECORDS SUMMARY | 2025-01-18 09:17 | XMS_ITS | Encounter Summary ---
Author Organization [facility] Address [address] [place] [address] Phone Care Team Providers Care Certified Professional Coder Name Role Phone Arnulfo Woodward MD Unavailable Sherie Worthington MONITOR TECH Unavailable [phone] Arnulfo Woodward MD Primary Care Provider Sherie Worthington MONITOR TECH Primary Care Provider Arnulfo Woodward MD Primary Care Provider Sherie Worthington MONITOR TECH Primary Care Provider Arnulfo Woodward MD Primary Care Provider Sherie Worthington MONITOR TECH Primary Care Provider Arnulfo Woodward MD Primary Care Provider Sherie Worthington MONITOR TECH Primary Care Provider Arnulfo Woodward MD Primary Care Provider Sherie Worthington MONITOR TECH Primary Care Provider Arnulfo Woodward MD Primary Care Provider Sherie Worthington MONITOR TECH Primary Care Provider Arnulfo Woodward MD Primary Care Provider Sherie Worthington MONITOR TECH Primary Care Provider Arnulfo Woodward MD Unavailable [phone] Arnulfo Woodward MD Primary Care Provider Sherie Worthington MONITOR TECH Primary Care Provider Cesar Evangelista MD Unavailable Renuka Benavides MD Primary Care Provider [phone] Bob Chavez PA-C Primary Care Provider Encounter Details Date Type Department Care Team (Late st Contact Info) Description 04/10/2017 Ancillary Orders [facility] Internal Medicine [address] [place] [address] Sherie Worthington, MONITOR TECH [address] [place] [address] [email or web address] Visit for screening mammogram Social History Tobacco Use Types Packs/Day Years Used Date Smoking Tobacco: Every Day Cigarettes 0.5 8 Smokeless Tobacco: Never Comments:did quit for 15 yrs then went back to smoking. Alcohol Use Standard Drinks/Week Comments Yes 0 (1 standard drink = 0.6 oz pur e alcohol) once a month-wine Comments Unknown Sex and Gender Information Value [...] Description 06/23/2025 2:40 PM EST Office Visit [facility] Internal Medicine [address] [place], [place] [phone] Bob Chavez PA-C [address] [place] [address] [email or web address] documented as of this encounter Results * BI MAMMOGRAM SCREENING WITH TOMOSYNTHESIS WITH CAD (BILATERAL) (06/13/2017 10:10 AM EST) Anatomical Region Laterality Modality Breast Left, Breast Right, Breast Bilateral Bila teral Mammography 06/13/2017 10:1 5 AM EST Impressions 06/13/2017 10:19 AM EST No mammographic evidence of malignancy. Recommend routine annual surveillance. BI-RADS CATEGORY: 2 - Benign finding. DENSITY: There are scattered fibroglandular densities. POS - CDHMAMA Narrative 06/13/2017 10:19 AM EST 66-year-old female with no current breast symptoms. Comparison made to previous on 06/12/2016 and as far back as 03/20/2012. Interpretation made in conjunction with computer-aided detection and tomosynthesis. There are scattered areas of fibroglandular density. Stable right breast post-therapeutic changes and calcification and multiple small left breast nodules. There are no suspicious masses, areas of architectural distortion, or suspicious clusters of microcalcifications. Procedure Note Marva Tsang MD - 06/13/2017 66-year-old female with no current breast symptoms. Comparison made toprevious on 06/12/2016 and as far back as 03/20/2012. Interpretation madein conjunction with computer-aided detection and tomosynthesis. There are scattered areas of fibroglandular density. Stable right breastpost-therapeutic changes and calcification and multiple small left breastnodules. There are no suspicious masses, areas of architectural distortion, orsuspicious clusters of microcalcifications. IMPRESSION: No mammographic evidence of malignancy. Recommend routine annualsurveillance. BI-RADS CATEGORY: 2 - Benign finding. DENSITY: There are scattered fibroglandular densities. POS - CDHMAMA us Sherie Worthington NP IMG MG EXAMS Final Result documented in this encounter Visit Diagnoses Diagnosis Visit for screening mammogram Visit for screening mammogram documented in this encounter Additional Health Concerns Assessment Noted Time PHQ-2 Depression Total Score: 0 04/03/20 17 2:57 PM EST documented as of this encounter Care Teams Certified Professional Coder Relationship Specialty Start Date End Date Arnulfo Woodward MD [address] [place] [address] [email or web address] PCP - General Internal Medicine 04/01/17 06/16/17 Sherie Worthington NP [address] [place] [address] [email or web address] PCP - General Family Medicine 06/17/17 11/23/17 Arnulfo Woodward MD [address] [place] [address] [email or web address] PCP - General Internal Medicine 11/24/17 02/08/18 Sherie Worthington MONITOR TECH [address] [place] [email or web address] PCP - General Family Medicine 02/09/18 02/09/18 Arnulfo Woodward MD [address] [place] [address] [email or web address] PCP - General Internal Medicine 02/10/18 02/16/18 Sherie Worthington MONITOR TECH [address] [place] [address] [email or web address] PCP - General Family Medicine 02/17/18 03/01/18 Arnulfo Woodward MD [address] [place] [address] [email or web address] PCP - General Internal Medicine 03/02/18 03/08/18 Sherie Worthington NP [address] [place] [address] [email or web address] PCP - General Family Medicine 03/09/18 03/10/18 Arnulfo Woodward MD [address] [place] [address] [email or web address] PCP - General Internal Medicine 03/11/18 04/29/18 Sherie Worthington NP [address] [place] [address] [email or web address] PCP - General Family Medicine 04/30/18 05/06/18 Arnulfo Woodward MD [address] [place] [address] [email or web address] PCP - General Internal Medicine 05/07/18 09/03/18 Sherie Worthington NP [address] [place] [address] [email or web address] PCP - General Family Medicine 09/04/18 09/27/18 Arnulfo Woodward MD [address] [place] [address] [email or web address] PCP - General Internal Medicine 09/28/18 12/02/18 Sherie Worthington NP [address] [place] [address] [email or web address] PCP - General Family Medicine 12/03/18 12/07/18 Arnulfo Woodward MD [address] [place] [address] [email or web address] PCP - General Internal Medicine 12/08/18 12/13/18 Sherie Worthington MONITOR TECH [address] [place] [address] [email or web address] PCP - General Family Medicine 12/14/18 07/29/23 Renuka Benavides MD [address] [place] [address], [address] [place] [address] [email or web address] PCP - General Family Medicine 07/30/23 12/28/23 Bob Chavez PA-C [address] [place] [address] [email or web address] PCP - General Physician Asphalt Mixer 12/29/23 Arnulfo Woodward MD [address] [place] [address] [email or web address] Historical LMR Provider 03/12/17 11/23/17 Sherie Worthington NP [address] [place] [address] [email or web address] Historical LMR Provider 03/12/17 02/08/18 Arnulfo Woodward MD [address] [place] [address] [email or web address] Insurance Assigned Provider Internal Medicine 12/03/18 Cesar Evangelista MD [address] [place] [address] [place] [address] Ophthalmology 07/10/21 documented as of this encounter Additional Source Comments The information contained in this document represents components of the legal health record. It is not the complete legal health record.[facility]
--- OUTSIDE RECORDS SUMMARY | 2025-01-18 09:17 | XMS_ITS | Encounter Summary ---
Author Organization [facility] Address [address] [place] [address] Phone Care Team Providers Care Sand Technician Name Role Phone Arnulfo Woodward MD Primary Care Provider [phone] Sherie Worthington ROLL FORMING MACHINE SET UP OPERATOR Primary Care Provider Arnulfo Woodward MD Unavailable [phone] Arnulfo Woodward MD Primary Care Provider [phone] Sherie Worthington ROLL FORMING MACHINE SET UP OPERATOR Primary Care Provider Cesar Evangelista MD Unavailable Renuka Benavides MD Primary Care Provider [phone] Bob Chavez PA-C Primary Care Provider [phone] Encounter Details Date Type Department Care Team (Latest Contact Info) Description 10/22/2018 Transcribe Orders [facility] Laboratory [address] [place] [address] Justen Chinchilla MD [address] [place] [address] [phone] [email or web address] Chronic epigastric pain (Primary Dx) Social History Tobacco Use Types Packs/Day Years [...] Description 06/23/2025 2:40 PM EST Office Visit [facility] Internal Medicine [address] [place] [address] Bob Chavez PA-C [address] [place] [address] [email or web address] documented as of this encounter Results * Tissue transglutaminase IgA (10/22/2018 9:47 AM EDT) TTG IGA ANTIBODY <1.2 <4.0 (Negative) U/mL [facility] Blood 10/22/2018 9:47 AM EDT 10/22/2018 9:52 AM EDT us Justen Chinchilla MD LAB BLOOD ORDERABLES Final Resul t Performing Organization Address City/[facility] Co de Phone Number [facility] [address] [place] [address] * Immunoglobulin A (10/22/2018 9:47 AM EDT) IgA 126 70 - 400 mg/dL [facility] Blood 10/22/2018 9:47 AM EDT 10/22/2018 9:52 AM EDT us Justen Chinchilla MD LAB BLOOD ORDERABLES Final Resul t [facility] [address] [place] [address] documented in this encounter Visit Diagnoses Diagnosis Chronic epigastric pain- Primary documented in this encounter Additional Health Concerns Assessment Noted Time PHQ-2 Depression Total Score: 0 09/03/19 19 1:59 PM EDT documented as of this encounter Care Teams Sand Technician Relationship Specialty Start Date End Date Arnulfo Woodward MD [address] [place] [address] [email or web address] PCP - General Internal Medicine 09/28/18 12/02/18 Sherie Worthington, ROLL FORMING MACHINE SET UP OPERATOR [address] [place] [address] [email or web address] PCP - General Family Medicine 12/03/18 12/07/18 Arnulfo Woodward MD [address] [place] [address] [email or web address] PCP - General Internal Medicine 12/08/18 12/13/18 Sherie Worthington, ROLL FORMING MACHINE SET UP OPERATOR [address] [place] [address] [email or web address] PCP - General Family Medicine 12/14/18 07/29/23 Renuka Benavides MD [address] [place] [address], [address] [place] [address] [email or web address] PCP - General Family Medicine 07/30/23 12/28/23 Bob Chavez PA-C [address] [place] [email or web address] PCP - General Physician Clin Asst 12/29/23 Arnulfo Woodward MD [address] [place] [address] [email or web address] Insurance Assigned Provider Internal Medicine 12/03/18 Cesar Evangelista MD [address] [place] [address] [place] [address] Ophthalmology 07/10/21 documented as of this encounter Additional Source Comments The information contained in this document represents components of the legal health record. It is not the complete legal health record.[facility]
--- OUTSIDE RECORDS SUMMARY | 2025-01-18 09:17 | XMS_ITS | Clinical Summary ---
Author Organization [employer] Address [address] [place] [address] [address] [place] [address] Care Team Providers Care Stock And Station Agent Name Role Phone Unavailable Primary Care Provider [...] 2023-2 5 season) 2024 Influenza Vaccine (#1) 2025 RSV Patients and Pa tients Aged 60 [...] patient's age to complete this topic Meningococcal B Vaccine Aged Out No l onger eligible based on patient's age to complete [...]
--- OUTSIDE RECORDS SUMMARY | 2025-01-18 09:17 | XMS_ITS | Encounter Summary ---
Author Organization [facility], Address [address] [place] [address] Phone Care Team Providers Care Highway Painter Helper Name Role Phone Bob Chavez PA-C Primary Care Provider [phone] Encounter Details Date Type Department Care Team (Late st Contact Info) Description 05/12/2024 Documentation Only [facility], [address] [place] [address] [place], [place] [address] [place] [address] Social History Tobacco Use Types [...] on filedocumented in this encounter Care Teams Highway Painter Helper Relationship Specialty Start Date End Date Bob Chavez PA-C [address] [place] [address] PCP - General 04/26/24 documented as of this encounter
--- OUTSIDE RECORDS SUMMARY | 2025-01-18 09:17 | XMS_ITS | Encounter Summary ---
Author Organization [facility] Address [address] [facility] [address] [place] [address] Phone Care Team Providers Care Emergency Vehicle Technician Name Role Phone Arnulfo Woodward MD Unavailable [phone] Cesar Evangelista MD Unavailable Bob Chavez PA-C Primary Care Provider [phone] Encounter Details Date Type Department Care Team (Late st Contact Info) Description 01/11/2025 Orders Only [facility] Internal Medicine [address] [place] [address] Provider, MD Elli [address] [place] [address] Social History Tobacco Use Types Packs/Day Years [...] Description 06/23/2025 2:40 PM EST Office Visit [facility] Internal Medicine [address] [place] [address] Bob Chavez PA-C [address] [place] [address] [email or web address] documented as of this encounter Procedures Procedure Name Priority Date/Time Associated Diagnosis Comments OUTSIDE ECHO Routine 01/11/2025 4:47 PM EDT documented in this encounter Results * Outside Echo Report Only (01/11/2025 4:47 PM EDT) us Historical Provider MD PALOMINO ECHO ORDERABLES Final Result documented in this encounter Visit Diagnoses Not on filedocumented in this encounter Additional Health Concerns Assessment Noted Time PHQ-2 Depression Total Score: 0 05/26/19 25 5:52 PM EST documented as of this encounter Care Teams Emergency Vehicle Technician Relationship Specialty Start Date End Date Bob Chavez PA-C [address] [place] [address] [email or web address] PCP - General Physician Car Porter 12/29/23 Arnulfo Woodward MD [address] [place] [address] [email or web address] Insurance Assigned Provider Internal Medicine 12/03/18 Cesar Evangelista MD [address] [place] [address] [place] [address] Ophthalmology 07/10/21 documented as of this encounter Additional Source Comments The information contained in this document represents components of the legal health record. It is not the complete legal health record.[facility]
--- OUTSIDE RECORDS SUMMARY | 2025-01-18 09:17 | XMS_ITS | Encounter Summary ---
Author Organization [facility] Address [address] [place] [address] [place] [address] Phone Care Team Providers Care Energy Administrator Name Role Phone Arnulfo Woodward MD Unavailable [phone] Sherie Worthington NP Primary Care Provider [phone] Cesar Evangelista MD Unavailable [phone] Renuka Benavides MD Primary Care Provider [phone] Bob Chavez PA-C Primary Care Provider [phone] Encounter Details Date Type Department Care Team (Late st Contact Info) Description 05/09/2020 Procedure Pass [facility] - [address] [place] [address] Social History Tobacco Use Types Packs/Day Years Used Date Smoking Tobacco: Former Cigarettes 0.3 8 0 07/2011 - 07/2019 Smokeless Tobacco: Never Comments:down to one daily [...] Description 06/23/2025 2:40 PM EST Office Visit [facility] Internal Medicine [address] [place] [address] Bob Chavez PA-C [address] [place] [address] documented as of this encounter Visit Diagnoses Not on filedocumented in this encounter Additional Health Concerns Assessment Noted Time PHQ-2 Depression Total Score: 0 06/01/19 20 10:38 AM EST documented as of this encounter Care Teams Energy Administrator Relationship Specialty Start Date End Date Sherie Worthington PLANNING CONSULTANT [address] [place] [address] PCP - General Family Medicine 12/14/18 07/29/23 Renuka Benavides MD [address] [place], [place] [address] [place] [address] PCP - General Family Medicine 07/30/23 12/28/23 Bob Chavez PA-C [address] [place] [address] PCP - General Physician Self Propelled Hot Mix Roller Operator 12/29/23 Arnulfo Woodward MD [address] [place] [address] Insurance Assigned Provider Internal Medicine 12/03/18 Cesar Evangelista MD [address] [place] [address] [place] [address] Ophthalmology 07/10/21 documented as of this encounter Additional Source Comments The information contained in this document represents components of the legal health record. It is not the complete legal health record.[facility]
--- OUTSIDE RECORDS SUMMARY | 2025-01-18 09:17 | XMS_ITS | Encounter Summary ---
Author Organization [facility] Address [address] [place] [address] [place] [address] Phone Care Team Providers Care Equity Director Name Role Phone Arnulfo Woodward MD Primary Care Provider Sherie Worthington SOLAR PROJECT ENGINEER Primary Care Provider Arnulfo Woodward MD Primary Care Provider Sherie Worthington SOLAR PROJECT ENGINEER Primary Care Provider Arnulfo Woodward MD Primary Care Provider Sherie Worthington SOLAR PROJECT ENGINEER Primary Care Provider Arnulfo Woodward MD Unavailable Arnulfo Woodward MD Primary Care Provider Sherie Worthington SOLAR PROJECT ENGINEER Primary Care Provider Cesar Evangelista MD Unavailable [phone] Renuka Benavides MD Primary Care Provider [phone] Bob Chavez PA-C Primary Care Provider Encounter Details Date Type Department Care Team (Late st Contact Info) Description 03/30/2018 Ancillary Orders [facility] Internal Medicine [address] [place] [address] Sherie Worthington, SOLAR PROJECT ENGINEER [address] [facility] [address] [place] [address] [email or web address] Breast screening Social History Tobacco Use Types [...] Description 06/23/2025 2:40 PM EST Office Visit [facility] Internal Medicine [address] [place] [address] Bbo Chavez PA-C [address] [place] [address] [email or web address] documented as of this encounter Results * BI MAMMOGRAM SCREENING WITH TOMOSYNTHESIS WITH CAD (BILATERAL) (06/15/2018 12:32 PM EST) Anatomical Region Laterality Modality Breast Left, Breast Right, Breast Bilateral Bila teral Mammography 06/15/2018 12:2 9 PM EST Impressions 06/15/2018 12:36 PM EST No mammographic change indicative of malignancy. Annual screening is recommended. BI-RADS CATEGORY: 2 - Benign finding. DENSITY: There are scattered fibroglandular densities. POS -CDHMAMA Narrative 06/15/2018 12:36 PM EST Bilateral full-field digital screening mammography is obtained and read in conjunction with computer-aided detection. Tomosynthesis as well as 2-D C view imaging of both breasts in two planes also obtained. Comparison made to multiple prior, most recent 06/13/2017, and most remote 04/02/2012. No dominant mass, unexpected architectural distortion, worrisome asymmetry, or suspicious calcification is identified. No skin or nipple finding of concern is appreciated. Small nodular areas on the left are unchanged. Post therapy changes again noted on the right without change. Procedure Note Milton Garcia MD - 06/15/2018 Bilateral full-field digital screening mammography is obtained and read inconjunction with computer-aided detection. Tomosynthesis as well as 2-D Cview imaging of both breasts in two planes also obtained. Comparison madeto multiple prior, most recent 06/13/2017, and most remote 04/02/2012. No dominant mass, unexpected architectural distortion, worrisomeasymmetry, or suspicious calcification is identified. No skin or nipplefinding of concern is appreciated. Small nodular areas on the left areunchanged. Post therapy changes again noted on the right without change. IMPRESSION: No mammographic change indicative of malignancy. Annual screening isrecommended. BI-RADS CATEGORY: 2 - Benign finding. DENSITY: There are scattered fibroglandular densities. POS -CDHMAMA Sherie Worthington SOLAR PROJECT ENGINEER IMG MG EXAMS Final Result documented in this encounter Visit Diagnoses Diagnosis Breast screening Breast screening, unspecified Breast screening Breast screening, unspecified documented in this encounter Additional Health Concerns Assessment Noted Time PHQ-2 Depression Total Score: 0 03/27/20 18 11:30 AM EDT documented as of this encounter Care Teams Equity Director Relationship Specialty Start Date End Date Arnulfo Woodward MD [address] [place] [address] PCP - General Internal Medicine 03/11/18 04/29/18 Sherie Worthington NP [address] [place] [address] PCP - General Family Medicine 04/30/18 05/06/18 Arnulfo Woodward MD [address] [place] [address] [email or web address] PCP - General Internal Medicine 05/07/18 09/03/18 Sherie Worthington NP [address] [place] [address] [email or web address] PCP - General Family Medicine 09/04/18 09/27/18 Arnulfo Woodward MD [address] [place] [address] [email or web address] PCP - General Internal Medicine 09/28/18 12/02/18 Sherie Worthington NP [address] [place] [address] [email or web address] PCP - General Family Medicine 12/03/18 12/07/18 Arnulfo Woodward MD [address] [place] [address] [email or web address] PCP - General Internal Medicine 12/08/18 12/13/18 Sherie Worthington SOLAR PROJECT ENGINEER [address] [place] [address] PCP - General Family Medicine 12/14/18 07/29/23 Renuka Benavides MD [address] [place] [address], [address] [place] [address] [email or web address] PCP - General Family Medicine 07/30/23 12/28/23 Bob Chavez PA-C [address] [place] [address] [email or web address] PCP - General Physician Steam Trap Worker 12/29/23 Arnulfo Woodward MD [address] [place] [address] [email or web address] Insurance Assigned Provider Internal Medicine 12/03/18 Cesar Evangelista MD [address] [place] [address] [place] [address] Ophthalmology 07/10/21 documented as of this encounter Additional Source Comments The information contained in this document represents components of the legal health record. It is not the complete legal health record.[facility]
--- OUTSIDE RECORDS SUMMARY | 2025-01-18 09:17 | XMS_ITS | Clinical Summary ---
Author Organization [facility], Address [address] [place] [address] [place] [address] Phone Care Team Providers Care Cement Tester Assistant Name Role Phone Bob Chavez PA-C Primary Care Provider [phone] Medications acetaminophen (TYLENOL) 500 MG tablet Take [...] (MAG-OX 400 PO) Take by mouth Active Active Problems Problem Noted Date Diagnosed Date [...] Colonoscopy 1999 Colorectal Cancer Screening: Sigmoidoscopy 1999 Influenza Vaccine (#1) 2025 , 06/18/2021 Pneumococcal Vaccine: 50+ Years Completed 04/09/2019, 02/17/2015, 12/09/2013 Hepatitis B Vaccine Aged Out No longe r eligible based on patient's age to complete this topic Insurance [employer] Care Teams Cement Tester Assistant Relationship Specialty Start Date End Date Bob Chavez PA-C [address] [place] [address] [phone] PCP - General 04/26/24
--- OUTSIDE RECORDS SUMMARY | 2025-01-18 09:17 | XMS_ITS | Encounter Summary ---
Author Organization [facility] Address [address] [facility] [address] [place] [address] Phone Care Team Providers Care Reduction Plant Supervisor Name Role Phone Arnulfo Woodward MD Unavailable Cesar Evangelista MD Unavailable [phone] Renuka Benavides MD Primary Care Provider [phone] Bob Chavez PA-C Primary Care Provider [phone] Encounter Details Date Type Department Care Team (Late st Contact Info) Description 12/02/2023 Telephone [facility] [address] [phone] Renuka Benavides MD [address] [facility] [place] [address] [email or web address] Social History Tobacco Use Types Packs/Day Years Used Date Smoking Tobacco: Every Day Cigarettes 0.5 59.6 Started: 1966 Passive Smoke Exposure: Past Smokeless Tobacco: Never Comments:8-10 cigarettes per day Pt has quit smoking multiple times but started up again. Alcohol Use Standard Drinks/Week Comments Yes 0 (1 standard drink = 0.6 oz pur e alcohol) 1-2 drinks, monthly or less Education Answer Date Recorded Are you interested [...] Description 06/23/2025 2:40 PM EST Office Visit [facility] Internal Medicine [address] [place], [place] [phone] Bob Chavez PA-C [address] [place] [address] [email or web address] documented as of this encounter Visit Diagnoses Not on filedocumented in this encounter Additional Health Concerns Assessment Noted Time PHQ-2 Depression Total Score: 0 05/07/20 23 12:24 PM EST documented as of this encounter Care Teams Reduction Plant Supervisor Relationship Specialty Start Date End Date Renuka Benavides MD [address] [place] [address], [address] [place] [address] PCP - General Family Medicine 07/30/23 12/28/23 Bob Chavez PA-C [address] [place] [address] PCP - General Physician Process Project Engineer 12/29/23 Arnulfo oWodward MD [address] [place] [address] Insurance Assigned Provider Internal Medicine 12/03/18 Cesar Evangelista MD [address] [place] [address] [place] [address] Ophthalmology 07/10/21 documented as of this encounter Additional Source Comments The information contained in this document represents components of the legal health record. It is not the complete legal health record.[facility]
--- OUTSIDE RECORDS SUMMARY | 2025-01-18 09:17 | XMS_ITS | Encounter Summary ---
Author Organization [facility] Address [address] [place] [address] [place] [address] Phone Care Team Providers Care Seed Collector Name Role Phone Arnulfo Woodward MD Unavailable [phone] Sherie Worthington NP Primary Care Provider [phone] Cesar Evangelista MD Unavailable Renuka Benavides MD Primary Care Provider [phone] Bob Chavez PA-C Primary Care Provider [phone] Encounter Details Date Type Department Care Team (Late st Contact Info) Description 06/19/2020 Procedure Pass [facility] - [address] [place] [address] Social History Tobacco Use Types Packs/Day Years [...] Description 06/23/2025 2:40 PM EST Office Visit [facility] Internal Medicine [address] [place] [address] Bob Chavez PA-C [address] [place] [address] documented as of this encounter Visit Diagnoses Not on filedocumented in this encounter Additional Health Concerns Assessment Noted Time PHQ-2 Depression Total Score: 0 06/01/19 20 10:38 AM EST documented as of this encounter Care Teams Seed Collector Relationship Specialty Start Date End Date Sherie Worthington TERRAZZO POLISHER [address] [place] [address] PCP - General Family Medicine 12/14/18 07/29/23 Renuka Benavides MD [address] [place], [place] [address] [place] [address] PCP - General Family Medicine 07/30/23 12/28/23 Bob Chavez PA-C [address] [place] [address] PCP - General Physician Backhaul Driver 12/29/23 Arnulfo Woodward MD [address] [place] [address] Insurance Assigned Provider Internal Medicine 12/03/18 Cesar Evangelista MD [address] [place] [address] [place] [address] Ophthalmology 07/10/21 documented as of this encounter Additional Source Comments The information contained in this document represents components of the legal health record. It is not the complete legal health record.[facility]
--- OUTSIDE RECORDS SUMMARY | 2025-01-18 09:17 | XMS_ITS | Encounter Summary ---
Author Organization [facility] Address [address] [place] [address] [place] [address] Phone Care Team Providers Care Japanese Professor Name Role Phone Arnulfo Woodward MD Unavailable [phone] Sherie Worthington CONTROL SYSTEMS SPECIALIST Primary Care Provider Cesar Evangelista MD Unavailable [phone] Renuka Benavides MD Primary Care Provider [phone] Bob Chavez PA-C Primary Care Provider Encounter Details Date Type Department Care Team (Late st Contact Info) Description 05/09/2020 Ancillary Orders [facility] Internal Medicine [address] [place] [address] Sherie Worthington, CONTROL SYSTEMS SPECIALIST [address] [facility] [address] [place] [address] [email or web address] Breast screening Social History [...] Description 06/23/2025 2:40 PM EST Office Visit [facility] Internal Medicine [address] [place] [address] Bob Chavez PA-C [address] [place] [address] [email or web address] documented as of this encounter Results * BI MAMMOGRAM SCREENING WITH TOMOSYNTHESIS WITH CAD (BILATERAL) (06/19/2020 10:26 AM EST) Anatomical Region Laterality Modality Breast Left, Breast Right, Breast Bilateral Bila teral Mammography 06/19/2020 11:4 0 AM EST Impressions 06/19/2020 11:52 AM EST No mammographic signs of malignancy. A six-month follow-up left breast ultrasound was recommended for masses on the left. This was not performed today as patient presented for a screening mammogram. This should be performed within the next month at the patient's convenience. Bilateral screening mammography in one year is recommended. BI-RADS CATEGORY: 2 - Benign finding. DENSITY: There are scattered fibroglandular densities. Narrative 06/19/2020 11:52 AM EST Bilateral mammography is performed in conjunction with computed aided detection. 3-D tomography along with 2-D C view imaging was also performed. Comparison made to previous dated as far back as 06/03/2014 and as recent as 06/18/2019. The patient is status-post right lumpectomy and radiation therapy for breast carcinoma in 1998. Post-therapeutic changes in the right are stable. A 1 cm mass in the posterior outer left breast (approximately 3:00 position) is stable. The second mass described in this region on prior ultrasounds is not mammographically apparent. No new suspicious masses, areas of architectural distortion or suspicious microcalcifications. Procedure Note Vick Dior MD - 06/19/2020 Bilateral mammography is performed in conjunction with computed aideddetection. 3-D tomography along with 2-D C view imaging was alsoperformed. Comparison made to previous dated as far back as 06/03/2014 andas recent as 06/18/2019. The patient is status-post right lumpectomy and radiation therapy forbreast carcinoma in 1998. Post-therapeutic changes in the right are stable. A 1 cm mass in theposterior outer left breast (approximately 3:00 position) is stable. Thesecond mass described in this region on prior ultrasounds is notmammographically apparent. No new suspicious masses, areas ofarchitectural distortion or suspicious microcalcifications. IMPRESSION: No mammographic signs of malignancy. A six-month follow-up left breastultrasound was recommended for masses on the left. This was not performedtoday as patient presented for a screening mammogram. This should beperformed within the next month at the patient's convenience. Bilateralscreening mammography in one year is recommended. BI-RADS CATEGORY: 2 - Benign finding. DENSITY: There are scattered fibroglandular densities. Sherie Worthington NP IMG MG EXAMS Final Result documented in this encounter Visit Diagnoses Diagnosis Breast screening Breast screening, unspecified Breast screening Breast screening, unspecified documented in this encounter Additional Health Concerns Assessment Noted Time PHQ-2 Depression Total Score: 0 06/01/19 20 10:38 AM EST documented as of this encounter Care Teams Japanese Professor Relationship Specialty Start Date End Date Sherie Worthington NP [address] [place] [address] PCP - General Family Medicine 12/14/18 07/29/23 Renuka Benavides MD [address] [place] [address], [address] [place] [address] PCP - General Family Medicine 07/30/23 12/28/23 Bob Chavez PA-C [address] [place] [address] [email or web address] PCP - General Physician Dehorner 12/29/23 Arnulfo Woodward MD [address] [place] [address] [email or web address] Insurance Assigned Provider Internal Medicine 12/03/18 Cesar Evangelista MD [address] [place] [address] [place] [id number] Ophthalmology 07/10/21 documented as of this encounter Additional Source Comments The information contained in this document represents components of the legal health record. It is not the complete legal health record.[facility]
--- OUTSIDE RECORDS SUMMARY | 2025-01-18 09:17 | XMS_ITS | Encounter Summary ---
Author Organization [facility] Address [address] [facility] [address] [place] [address] Phone Care Team Providers Care Band Leader Name Role Phone Arnulfo Woodward MD Unavailable [phone] Cesar Evangelista MD Unavailable Bob Chavez PA-C Primary Care Provider [phone] Reason for Visit * Reason Comments Medication Refill Encounter Details Date Type Department Care Team (Late st Contact Info) Description 01/12/2025 Refill [facility] Internal Medicine [address] [place] [address] Linda Aden CNP [address] [place] [phone] [email or web address] Medication Refill Social History Tobacco Use Types Packs/Day Years [...] as of this encounter Progress Notes * Herminia Ly CMA - 01/13/2025 8:17 AM EDT Images from the original note were not included. Rx Care Gap Status - Instructions for Clinical Staff (prescriber discretion applies): > Mismatch review guide > Check PDMP for all controlled medication requests. Visit Info Last visit: 12/07/2024 Bob Chavez PA-C - Internal Medicine [facility] > Requested f/u: Return in about 6 months (around 06/09/2025) for Annual physical. Upcoming visit: 06/23/2025 Bob Chavez PA-C - Internal Medicine [facility] ACTIONS TAKEN BY Herminia Ly CMA - Checked PDMP/MassPAT. Non-Opioid Controlled Substance With PDMP Rx Protocol - lorazepam Renewal is at prescriber discretion. Visit in the past 12 months: Yes documented in this encounter Plan of Treatment Upcoming Encounters Date Type Department Care Team ([facility] Contact Info) Description 06/23/2025 2:40 PM EST Office Visit [facility] Internal Medicine 40 [place] [address] Bob Chavez PA-C 40 [place] [address] [email or web address] documented as of this encounter Visit Diagnoses Diagnosis Anxiety Anxiety state, unspecified documented in this encounter Additional Health Concerns Assessment Noted Time PHQ-2 Depression Total Score: 0 05/26/19 25 5:52 PM EST documented as of this encounter Care Teams Band Leader Relationship Specialty Start Date End Date Bob Chavez PA-C [address] [place] [address] [email or web address] PCP - General Physician Radio Program Checker 12/29/23 Arnulfo Woodward MD [address] [place] [address] [email or web address] Insurance Assigned Provider Internal Medicine 12/03/18 Cesar Evangelista MD [address] [place] [address] [place] [address] Ophthalmology 07/10/21 documented as of this encounter Additional Source Comments The information contained in this document represents components of the legal health record. It is not the complete legal health record.[facility]
--- OUTSIDE RECORDS SUMMARY | 2025-01-18 09:17 | XMS_ITS | Encounter Summary ---
Author Organization [facility], Address [address] [place] [address] Phone Care Team Providers Care Food Production Worker Name Role Phone Bob Chavez PA-C Primary Care Provider [phone] Encounter Details Date Type Department Care Team (Late st Contact Info) Description 04/26/2024 Documentation Only [facility], [address] [place] [address] [place], [place] [address] [place] [address] Social History Tobacco Use Types [...] on filedocumented in this encounter Care Teams Food Production Worker Relationship Specialty Start Date End Date Bob Chavez PA-C 40 [place] [address] PCP - General 04/26/24 documented as of this encounter
--- OUTSIDE RECORDS SUMMARY | 2025-01-18 09:18 | XMS_ITS | Encounter Summary ---
Author Organization [facility] Address [address] [place] [address] [place] [address] Phone Care Team Providers Care Community Ambassador Name Role Phone Arnulfo Woodward MD Unavailable Sherie Worthington NP Primary Care Provider Cesar Evangelista MD Unavailable Renuka Benavides MD Primary Care Provider [phone] Bob Chavez PA-C Primary Care Provider [phone] Encounter Details Date Type Department Care Team (Late st Contact Info) Description 09/20/2020 Transcribe Orders Virtual Department [address] [place] [address] Sherie Worthington, LEADERSHIP RECRUITER [address] [facility] [address] [place] [address] [email or web address] Breast screening (Primary Dx) Social History Tobacco Use Types [...] Description 06/23/2025 2:40 PM EST Office Visit [facility] Internal Medicine [address] [place] [address] Bob Chavez PA-C 40 [place] [address] [email or web address] documented as of this encounter Visit Diagnoses Diagnosis Breast screening- Primary Breast screening, unspecified documented in this encounter Additional Health Concerns Assessment Noted Time PHQ-2 Depression Total Score: 0 09/07/19 21 9:43 AM EDT documented as of this encounter Care Teams Community Ambassador Relationship Specialty Start Date End Date Sherie Worthington NP [address] [place] [address] PCP - General Family Medicine 12/14/18 07/29/23 Renuka Benavides MD [address] [place], [place] [id number] [place] [address] PCP - General Family Medicine 07/30/23 12/28/23 Bob Chavez PA-C [address] [place] [address] PCP - General Physician Interventional Radiology Tech 12/29/23 Arnulfo Woodward MD [address] [place] [address] Insurance Assigned Provider Internal Medicine 12/03/18 Cesar Evangelista MD [address] [place] [address] [place] [address] Ophthalmology 07/10/21 documented as of this encounter Additional Source Comments The information contained in this document represents components of the legal health record. It is not the complete legal health record.[facility]
--- OUTSIDE RECORDS SUMMARY | 2025-01-18 09:18 | XMS_ITS | Encounter Summary ---
Author Organization [facility] Address [address] [facility] [address] [place] [address] Phone Care Team Providers Care Field Scout Name Role Phone Arnulfo Woodward MD Unavailable [phone] Cesar Evangelista MD Unavailable Bob Chavez PA-C Primary Care Provider [phone] Encounter Details Date Type Department Care Team (Late st Contact Info) Description 03/02/2024 Procedure Pass [facility], Ct Scan - [address] [address] Social History Tobacco Use Types Packs/Day Years [...] ecorded Denied Basic Needs Not on file 02/24/2024 In the past 12 months have y ou been in a relationship with a person who hurts, threatens, or tries to control you? No 02/24/2024 Worried food would run out Not on file 02/23 In the past 12 months have y ou been in a relationship with a person who hurts, threatens, or tries to control you? No 02/24/2024 Comments No Sex and Gender Information Value [...] Description 06/23/2025 2:40 PM EST Office Visit [facility] Internal Medicine [address] [place] [address] Bob Chavez PA-C 40 [place] [address] [email or web address] documented as of this encounter Visit Diagnoses Not on filedocumented in this encounter Additional Health Concerns Assessment Noted Time PHQ-2 Depression Total Score: 0 02/24/20 24 4:23 PM EDT documented as of this encounter Care Teams Field Scout Relationship Specialty Start Date End Date Bob Chavez PA-C 40 [place] [address] PCP - General Physician Pipe Threader 12/29/23 Arnulfo Woodward MD [address] [place], [place] [phone] Insurance Assigned Provider Internal Medicine 12/03/18 Cesar Evangelista MD [address] [place] [address] Dr [place], [place] [id number] Ophthalmology 07/10/21 documented as of this encounter Additional Source Comments The information contained in this document represents components of the legal health record. It is not the complete legal health record.[facility]
--- OUTSIDE RECORDS SUMMARY | 2025-01-18 09:18 | XMS_ITS | Encounter Summary ---
Author Organization [facility] Address [address] [place] [address] [place] [address] Phone Care Team Providers Care Desk Top Publisher Name Role Phone Arnulfo Woodward MD Unavailable Sherie Worthington NP Primary Care Provider Cesar Evangelista MD Unavailable Renuka Benavides MD Primary Care Provider [phone] Bob Chavez PA-C Primary Care Provider [phone] Encounter Details Date Type Department Care Team (Latest Contact Info) Description 04/09/2022 Transcribe Orders [facility] Laboratory [address] [place] [address] Poly Frankel PA-C [address] [facility], [address]. [address] [place] [address] [email or web address] Diarrhea, unspecified type (Primary Dx); Acquired hypothyroidism Social History Tobacco Use Types Packs/Day Years Used Date Smoking Tobacco: Some Days Cigarettes 1 8 Started: 07/2011; Last attempted to quit: [...] Description 06/23/2025 2:40 PM EST Office Visit [facility] Internal Medicine [address] [place] [address] Bob Chavez PA-C 40 [place] [address] [email or web address] documented as of this encounter Results * TSH (04/09/2022 11:18 AM EST) TSH 1.32 0.27 - 4.20 uIU/mL [facility] Blood 04/09/2022 11:1 8 AM EST 04/09/2022 11:27 AM EST us Poly Frankel PA-C LAB BLOOD ORDERABLES Final Resu lt [address] [address] * Lipase (04/09/2022 11:18 AM EST) LIPASE 36 16 - 63 U/L [facility] Blood 04/09/2022 11:1 8 AM EST 04/09/2022 11:27 AM EST us Poly Frankel PA-C LAB BLOOD ORDERABLES Final Resu lt [address] [address] * (ABNORMAL) C-Reactive Protein (04/09/2022 11:18 AM EST) C REACTIVE PROTEIN 7.9(H) 0.0 - 4.0 mg/L [facility] Blood 04/09/2022 11:1 8 AM EST 04/09/2022 11:27 AM EST us Poly Frankel PA-C LAB BLOOD ORDERABLES Final Resu lt [address] [address] * (ABNORMAL) Comprehensive metabolic panel (04/09/2022 11:18 AM EST) SODIUM 141 133 - 146 mmol/L [facility] POTASSIUM 3.3 3.3 - 5.1 mmol/L [facility] CHLORIDE 102 96 - 108 mmol/L [facility] CO2 32 21 - 35 mmol/L [facility] BUN 5(L) 6 - 19 mg/dL [facility] CREATININE 0.80 0.5 - 1.5 mg/dL [facility] GLUCOSE 89 70 - 99 mg/dL [facility] ALBUMIN 4.1 3.9 - 4.8 g/dL [facility] TOTAL PROTEIN 6.6 6.5 - 8.0 g/dL [facility] CALCIUM 9.6 8.4 - 10.3 mg/dL [facility] ALKALINE PHOSPHATASE 70 39 - 117 U/L [facility] TOTAL BILIRUBIN 0.3 0.0 - 1.2 mg/dL [facility] AST 21 0 - 37 U/L [facility] ALT 12 0 - 40 U/L [facility] GLOBULIN 2.5 1 - 4.8 g/dL [facility] EGFR 79 >59 mL/min/1.7 3m2 [facility] Comment:Estimated glomerular filtration rate calculated using the CKD-EPI refit equation. ANION GAP 10 10 - 20 mmol/L [facility] Blood 04/09/2022 11:1 8 AM EST 04/09/2022 11:27 AM EST us Poyl Frankel PA-C LAB BLOOD ORDERABLES Final Resu lt [address] [address] * CBC (04/09/2022 11:18 AM EST) WBC 5.59 4.00 - 11.00 K/uL [facility] RBC 4.18 3.72 - 5.30 M/uL [facility] HGB 12.5 11.4 - 15.9 g/dL [facility] HCT 37.1 34.2 - 46.8 % [facility] PLT 250 140 - 430 K/uL [facility] MCV 88.8 78.0 - 97.0 fL [facility] MCH 29.9 25.0 - 33.0 pg [facility] MCHC 33.7 32.0 - 36.0 g/dL [facility] RDW 12.7 11.0 - 16.0 % [facility] MPV 11.0 8.4 - 12.8 [facility] Blood 04/09/2022 11:1 8 AM EST 04/09/2022 11:27 AM EST Poly Frankel PA-C LAB BLOOD ORDERABLES Final Resu lt [address] [address] * Immunoglobulin A (04/09/2022 11:18 AM EST) Pathologist [facility] IgA 136 70 - 400 mg/dL [facility] Blood 04/09/2022 11:1 8 AM EST 04/09/2022 11:27 AM EST Poly Frankel PA-C LAB BLOOD ORDERABLES Final Resu lt [address] [address] * Tissue transglutaminase IgA (04/09/2022 11:18 AM EST) TTG IGA ANTIBODY <1.2 <4.0 (Negative) U/mL [facility] [address] Blood 04/09/2022 11:1 8 AM EST 04/09/2022 11:27 AM EST us Poly Frankel PA-C LAB BLOOD ORDERABLES Final Resu lt [facility] [address] [place] [address] documented in this encounter Visit Diagnoses Diagnosis Diarrhea, unspecified type- Primary Acquired hypothyroidism Unspecified hypothyroidism documented in this encounter Additional Health Concerns Assessment Noted Time PHQ-2 Depression Total Score: 0 01/30/20 22 9:57 AM EDT documented as of this encounter Care Teams Desk Top Publisher Relationship Specialty Start Date End Date Sherie Worthington NP [address] [place] [address] PCP - General Family Medicine 12/14/18 07/29/23 Renuka Benavides MD [address] [place] [address] PCP - General Family Medicine 07/30/23 12/28/23 Bob Chavez PA-C [address] [place] [email or web address] PCP - General Physician Cutter Out 12/29/23 Arnulfo Woodward MD [address] [place] [address] Insurance Assigned Provider Internal Medicine 12/03/18 Cesra Evangelista MD [address] [place] [address] [address] Ophthalmology 07/10/21 documented as of this encounter Additional Source Comments The information contained in this document represents components of the legal health record. It is not the complete legal health record.[facility]
--- OUTSIDE RECORDS SUMMARY | 2025-01-18 09:18 | XMS_ITS | Encounter Summary ---
Author Organization [facility] Address [address] [place] [address] [place] [address] Phone Care Team Providers Care Line Supply Name Role Phone Arnulfo Woodward MD Unavailable Sherie Worthington FORM LAYER Primary Care Provider [phone] Cesar Evangelista MD Unavailable Renuka Benavides MD Primary Care Provider [phone] Bob Chavez PA-C Primary Care Provider [phone] Encounter Details Date Type Department Care Team (Late st Contact Info) Description 04/04/2022 Transcribe Orders Virtual Department [address] [place] [address] Sherie Worthington, FORM LAYER [address] [facility] [address] [place] [address] [email or web address] Social History Tobacco Use Types Packs/Day Years [...] Description 06/23/2025 2:40 PM EST Office Visit [facility] Internal Medicine 40 [place] [address] Bob Chavez PA-C [address] [place] [address] documented as of this encounter Visit Diagnoses Not on filedocumented in this encounter Additional Health Concerns Assessment Noted Time PHQ-2 Depression Total Score: 0 01/30/20 9:57 AM EDT documented as of this encounter Care Teams Line Supply Relationship Specialty Start Date End Date Sherie Worthington NP [address] [place] [address] PCP - General Family Medicine 12/14/18 07/29/23 Renuka Benavides MD [address] [place] [id number] PCP - General Family Medicine 07/30/23 12/28/23 Bob Chavez PA-C [address] [place] [address] PCP - General Physician Fan Blade Truer 12/29/23 Arnulfo Woodward MD [address] [place] [address] Insurance Assigned Provider Internal Medicine 12/03/18 Cesar Evangelista MD [address] [place] [address] [place] [address] Ophthalmology 07/10/21 documented as of this encounter Additional Source Comments The information contained in this document represents components of the legal health record. It is not the complete legal health record.[facility]
== END ==
LOC: HO.CARD 08:57
PROVIDERS: PCP Physician Assistant Surgical; Visit Provider Physician Assistant Surgical
DX: Z13.89 Encounter for screening for other disorder (principal)
CPT/HCPCS: 93017

== ENCOUNTER → 2025-01-18 09:00 | Outpatient (BNV) | payer MEDICARE, SELFPAY | PROVIDERS: PCP Physician Assistant Surgical | DX: I49.3 Ventricular premature depolarization (principal) | CPT/HCPCS: 93016; 93018 ==

== ENCOUNTER 2025-05-09 10:05 | Outpatient (REF) | payer MEDICARE, SELFPAY ==
--- NOTE | ~2025-05-09 | MM_ITS ---
EXAMINATION(S): 1. MM DIAGNOSTIC DIGITAL BREAST TOMOSYNTHESIS, BILATERAL 2. TARGETED ULTRASOUND OF THE LEFT BREAST CLINICAL INFORMATION: Left breast lump at 12 o'clock position. History of right breast lumpectomy for breast cancer in 1998 COMPARISON: Comparison made to multiple prior, most recent July 06, 2024, and most remote May 14, 2013. TECHNIQUE: Digital breast tomosynthesis is performed in both the mediolateral oblique and craniocaudal views along with computer-aided detection (CAD). Synthesized 2D images are generated from the tomosynthesis. FINDINGS: BREAST COMPOSITION: There are scattered areas of fibroglandular density. RIGHT BREAST: Stable chronic post lumpectomy changes No significant masses, suspicious calcifications or other abnormalities are seen. LEFT BREAST: No significant masses, suspicious calcifications or other abnormalities are seen. In particular, no suspicious mammographic findings adjacent to the skin BB marker placed in the upper inner quadrant. Targeted ultrasound of the left breast was performed at the location of the palpable concern as indicated by the patient. No suspicious findings to accounts for patient's palpable concern. During the survey, incidental note is made of a 0.2 x 0.2 x 0.2 cm round complicated cyst with hypoechoic content or solid mass at 1 o'clock position 2 cm from the nipple. No internal vascularity demonstrated with color Doppler evaluation. MM/MM tomosynthesis diagnostic BI IMPRESSION: RIGHT BREAST: Benign, no mammographic evidence of malignancy. Normal interval follow-up is recommended in 12 months. LEFT BREAST: 1. No suspicious mammographic or sonographic findings to accounts for patient's palpable concern. Clinical follow-up is recommended, independent of imaging findings. 2. Incidental 0.2 cm complicated cyst with or solid mass at 1 o'clock position 2 cm from the nipple. Probably benign. A 6-month follow-up ultrasound is recommended. ASSESSMENT: BI-RADS: Category 3: Probably benign RECOMMENDATION: 6 Month F/U Results were provided to the patient at time of visit by the technologist. This patient's information was entered into a reminder system with a target due date for their next mammogram. Electronically signed by: Steph Hastings MD 05/09/2025 11:29 AM [facility]
== END 2025-05-09 10:06 | disposition home or self-care (01) ==
LOC: HO.MAMMO 10:05
PROVIDERS: PCP Physician Assistant Surgical; Visit Provider Physician Assistant Surgical
DX: N64.4 Mastodynia (principal)
CPT/HCPCS: 76642; 77062; 77066

== ENCOUNTER → 2025-05-09 10:30 | Outpatient (BNV) | payer MEDICARE, SELFPAY | PROVIDERS: PCP Physician Assistant Surgical; Visit Provider Radiology Body Imaging | DX: N63.25 Unspecified lump in the left breast, overlapping quadrants (principal) | CPT/HCPCS: 76642; 77066; G0279 ==